=== PATIENT | female | born 1960 | race African-American/Black ===

== ENCOUNTER 2016-11-03 17:36 | Emergency (ER) | payer OTHER ==
[~2016-11-03] VITALS: Ht 157.5 cm; Wt 67.0 kg
[~2016-11-03 17:36] MED LIST: FURO1TAB93 PO; KCL10C PO; LACT10SO27 PO; LORTA5 PO; PRIL40CA PO; RIFA550 PO; SPIR100 PO
[2016-11-03 17:37] VITALS: BP 117/72; PULSE 89; RESP 19; TEMP 97.8; O2SAT 96
--- NOTE | 2016-11-03 17:52 | PD ---
Physical Exam Date Seen by Provider: Nov 03, 2016 Time Seen by Provider: 17:50 Narrative 56 yo female here for abdominal pain and swelling for 2 weeks. Not improving. Taking no meds for it. No N/V/D. No chest pain. No SOB. Starts in the epigastric area and radiates to the back. Has had paracenthesis before, has not had it in a while. No alcohol. Vitals are stable. Awaiting bed placement. Data Data Last Documented VS Vital Signs Date Time Temp Pulse Resp B/P Pulse Ox O2 Delivery O2 Flow Rate FiO2 11/03/16 17:37 97.8 89 19 117/72 96 MDM Medical Record Reviewed: Yes Supervised Visit with MIGUE: No Niranjan Herrera Nov 03, 2016 17:52
[2016-11-03 21:19] VITALS: O2SAT 98
--- NOTE | 2016-11-03 21:27 | PD ---
HPI Chief Complaint: Pain: Acute or Chronic Time Seen by Provider: 21:14 Travel History International Travel<30 days: No Contact w/Intl Traveler<30days: No Traveled to known affect area: No History of Present Illness HPI C/O INCREASING ABD DISTENTION OVER PAST TWO WEEKS, NOW IS VERY PAINFUL AND MAKING IT DIFFICULT TO TAKE FULL BREATHS. HAS KNOWN H/O CIRRHOSIS WITH ASCITES , NORMALLY GETS "DRAINED" AT [place] BY DR HOPE? PFSH Past Medical History Arthritis: Yes Asthma: No Blood Disorders: No Anxiety: Yes Depression: No Heart Rhythm Problems: No Cancer: No Cardiovascular Problems: Yes (htn) Chemotherapy: No Chest Pain: No Congestive Heart Failure: No Cirrhosis: Yes COPD: No Cerebrovascular Accident: Yes Diabetes: No Diminished Hearing: No Endocrine: No Gastrointestinal Disorders: Yes (ASCITES) Glaucoma: Yes Genitourinary: No Headaches: Yes Hepatitis: Yes (HEP C) Hypertension: Yes (NON COMPLIANT WITh BP MEDS) Immune Disorder: Yes (HEP C) Implanted Vascular Access Dvce: No Musculoskeletal: Yes Neurologic: Yes Psychiatric: Yes ( ) Reproductive: No Respiratory: No Immunizations Current: No Radiation Therapy: No Sleep Apnea: No Thyroid Disease: No Tetanus Vaccination: Unknown Influenza Vaccination: No ?: Not Menopausal: Yes : 1 Para: 1 Past Surgical History Abdominal Surgery: Yes (paracentesis q6 months last one 12/22, lap. incarcerated hernia repair) Other Surgery: No Social History Alcohol Use: Yes (occ) Tobacco Use: Yes (2 CIGARS A DAY ) Substance Use: No Allergies-Medications (Allergen,Severity, Reaction): Coded Allergies: No Known Allergies (Verified , 11/03/16) Reported Meds & Prescriptions Reported Meds & Active Scripts Active Reported Lactulose Liq (Lactulose) 10 Gm/15 Ml Soln 15 Ml PO Q6H PRN Klor-Con 10 (Potassium Chloride) 10 Meq Tab 10 Meq PO DAILY Spironolactone 100 Mg Tab 100 Mg PO BIDPC Furosemide 40 Mg Tab 40 Mg PO DAILY Protonix (Pantoprazole Sodium) 40 Mg Tab 40 Mg PO DAILY Review of Systems Except as stated in HPI: all other systems reviewed are Neg General / Constitutional: No: Fever Gastrointestinal: Positive: Abdominal Pain (MORE BLOATING AND PRESSURE, NOT TRULY PAIN) Physical Exam Narrative GENERAL: SKIN: Warm and dry. HEAD: Atraumatic. Normocephalic. EYES: Pupils equal and round. No scleral icterus. No injection or drainage. ENT: No nasal bleeding or discharge. Mucous membranes pink and moist. NECK: Trachea midline. No JVD. CARDIOVASCULAR: Regular rate and rhythm. RESPIRATORY: No accessory muscle use. Clear to auscultation. Breath sounds equal bilaterally. GASTROINTESTINAL: Abdomen SOFT, PRESENT BS, BUT TENSE ASCITES WITH POS FLUID WAVE, NO REBOUND/GUARDING/RIGIDITY MUSCULOSKELETAL: Extremities without clubbing, cyanosis, or edema. No obvious deformities. NEUROLOGICAL: Awake and alert. No obvious cranial nerve deficits. Motor grossly within normal limits. Five out of 5 muscle strength in the arms and legs. Normal speech. PSYCHIATRIC: Appropriate mood and affect; insight and judgment normal. Data Data Last Documented VS Vital Signs Date Time Temp Pulse Resp B/P Pulse Ox O2 Delivery O2 Flow Rate FiO2 11/03/16 21:51 80 18 129/79 99 Room Air 11/03/16 17:37 97.8 Orders Complete Blood Count With Diff (11/03/16 21:16) Comprehensive Metabolic Panel (11/03/16 21:16) Lipase (11/03/16 21:16) Prothrombin Time / Inr (Pt) (11/03/16 21:16) Act Partial Throm Time (Ptt) (11/03/16 21:16) Ct Abd/Pel W/O Iv Contrast (11/03/16 21:16) Iv Access Insert/Monitor (11/03/16 21:16) Ecg Monitoring (11/03/16 21:16) Oximetry (11/03/16 21:16) Morphine Inj (Morphine Inj) (11/03/16 21:30) Ondansetron Inj (Zofran Inj) (11/03/16 21:30) Electrocardiogram (11/03/16 21:16) Labs Laboratory Tests Test 11/03/16 21:22 White Blood Count 3.5 TH/MM3 Red Blood Count 2.49 MIL/MM3 Hemoglobin 10.2 GM/DL Hematocrit 31.2 % Mean Corpuscular Volume 125.0 FL Mean Corpuscular Hemoglobin 41.1 PG Mean Corpuscular Hemoglobin 32.8 % Concent Red Cell Distribution Width 16.2 % Platelet Count 61 TH/MM3 Mean Platelet Volume 8.0 FL Neutrophils (%) (Auto) 39.2 % Lymphocytes (%) (Auto) 46.8 % Monocytes (%) (Auto) 12.8 % Eosinophils (%) (Auto) 0.7 % Basophils (%) (Auto) 0.5 % Neutrophils # (Auto) 1.4 TH/MM3 Lymphocytes # (Auto) 1.6 TH/MM3 Monocytes # (Auto) 0.4 TH/MM3 Eosinophils # (Auto) 0.0 TH/MM3 Basophils # (Auto) 0.0 TH/MM3 CBC Comment AUTO DIFF Differential Comment AUTO DIFF CONFIRMED Prothrombin Time 15.2 SEC Prothromb Time International 1.4 RATIO Ratio Activated Partial 32.2 SEC Thromboplast Time Sodium Level 136 MEQ/L Potassium Level 3.8 MEQ/L Chloride Level 108 MEQ/L Carbon Dioxide Level 21.7 MEQ/L Anion Gap 6 MEQ/L Blood Urea Nitrogen 6 MG/DL Creatinine 0.86 MG/DL Estimat Glomerular Filtration 82 ML/MIN Rate Random Glucose 110 MG/DL Calcium Level 8.3 MG/DL Total Bilirubin 1.5 MG/DL Aspartate Amino Transf 69 U/L (AST/SGOT) Alanine Aminotransferase 34 U/L (ALT/SGPT) Alkaline Phosphatase 233 U/L Total Protein 8.0 GM/DL Albumin 1.9 GM/DL Lipase 234 U/L [facility] Medical Decision Making Medical Screen Exam Complete: Yes Emergency Medical Condition: Yes Medical Record Reviewed: Yes Differential Diagnosis TENSE ASCITES V PANCREATITIS V COLITIS Narrative Course D/W DR ARSHAD, WHO REC CASE MANAGEMENT FOR MANDATORY REFERRAL TO BE DONE INSTEAD OF ADMISSION/OBSERVATION...LAB ABNORMALITIES ARE C/W CHRONIC LIVER CIRRHOSIS Diagnosis Primary Impression: ABDOMINAL PAIN DUE TO TENSE ASCITES Admitting Information Admitting Physician Requests: Observation Remberto Manley MD Nov 03, 2016 21:27
[2016-11-03] MEDS ORDERED: MORPHINE SULFATE 4 MG/ML INJ IV PUSH ONE (21:30)
[2016-11-03] MEDS ORDERED: ONDANSETRON HCL 4 MG/2 ML VIAL IVP ONE (21:30)
[2016-11-03] MEDS ORDERED: FURO40TA PO (21:48)
[2016-11-03] MEDS ORDERED: PROT40TA PO (21:48)
[2016-11-03] MEDS ORDERED: SPIR100T PO (21:49)
[2016-11-03] MEDS ORDERED: LACT10SO PO (21:49)
[2016-11-03] MEDS ORDERED: POTA-243 PO (21:49)
[2016-11-03 21:50] LABS: AUTOMATED NEUTROPHIL # 1.4 TH/MM3 (1.8-7.7); BASOPHIL % 0.5 % (0.0-2.0); EOSINOPHIL % 0.7 % (0.0-4.0); HEMATOCRIT 31.2 % (35.0-46.0); LYMPH % 46.8 % (9.0-44.0); LYMPHOCYTE # 1.6 TH/MM3 (1.0-4.8); MEAN CORPUSCULAR HEMOGLOBIN 41.1 PG (27.0-34.0); MEAN CORPUSCULAR HGB CONC 32.8 % (32.0-36.0); MONO % 12.8 % (0.0-8.0); NEUT % 39.2 % (16.0-70.0); PLATELET COUNT 61 TH/MM3 (150-450); RED BLOOD COUNT 2.49 MIL/MM3 (4.00-5.30); RED CELL DISTRIBUTION WIDTH 16.2 % (11.6-17.2); WHITE BLOOD COUNT 3.5 TH/MM3 (4.0-11.0)
[2016-11-03 21:51] VITALS: BP 129/79; PULSE 80; RESP 18; O2SAT 99
[2016-11-03 21:56] LABS: HEMO FLAGS AUTO DIFF
[2016-11-03 22:02] LABS: ALT (GPT) 34 U/L (10-53)
[2016-11-03 22:04] LABS: ANION GAP 6 MEQ/L (5-15); APTT (PATIENT) 32.2 SEC (24.3-30.1); AST (GOT) 69 U/L (15-37); BICARBONATE 21.7 MEQ/L (21.0-32.0); BLOOD UREA NITROGEN 6 MG/DL (7-18); CHLORIDE 108 MEQ/L (98-107); GLOMERULAR FILTRATION RATE 82 ML/MIN (>89); INTERNATIONAL NORMALIZED RATIO 1.4 RATIO; POTASSIUM 3.8 MEQ/L (3.5-5.1); PROTHROMBIN TIME - PATIENT 15.2 SEC (9.8-11.6); SODIUM (NA) 136 MEQ/L (136-145)
[2016-11-03 22:05] LABS: ALKALINE PHOSPHATASE 233 U/L (45-117); TOTAL BILIRUBIN ADULT 1.5 MG/DL (0.2-1.0)
[2016-11-03 22:23] LABS: SCAN/DIFF AUTO DIFF CONFIRMED
--- NOTE | 2016-11-03 22:34 | RADRPT ---
EXAM DATE/TIME: 11/03/2016 21:30 [facility] COMPARISON: No previous studies available for comparison. INDICATIONS : Epigastric pain with distention. ORAL CONTRAST: No oral contrast ingested. RADIATION DOSE: 14.35 CTDIvol (mGy) MEDICAL HISTORY : Hypertension. Cirrhosis. Hepatitis C. SURGICAL HISTORY : Hernia repair ENCOUNTER: Initial ACUITY: 2 weeks PAIN SCALE: 10/10 LOCATION: Epigastric TECHNIQUE: Volumetric scanning of the abdomen and pelvis was performed. Using automated exposure control and adjustment of the mA and/or kV according to patient size, radiation dose was kept as low as reasonably achievable to obtain optimal diagnostic quality images. DICOM format image data is av ailable electronically for review and comparison. FINDINGS: The liver appears diffusely abnormal with hypertrophy of the left lobe and to some degr ee at caudate. There is atrophy of the right lobe. The liver demonstrates a nodular surface. These changes are consistent with cirrhosis. The patient does appear to have a recanalized periumbilical v ein. There is a moderate to large amount of ascites seen throughout the peritoneal cavity. Calcifie d gallstones are seen. The spleen is normal in size. The pancreas and adrenal glands are normal. There is a tiny 2 mm nono bstructing right renal stone seen at the superior collecting system. No hydronephrosis is seen on ei ther side. There are scattered atherosclerotic calcifications seen at the arterial structures. No a neurysm is seen. The patient has bowel danielle seen in the right midabdomen. The bowel is otherwise unremarkable. Th e pelvic structures appear grossly intact. There does appear to be some ascites extending through an umbilical hernia. The defect at the anterior abdominal wall at the umbilicus measures approximately 2 cm in diameter. The hernia sac at the umbilicus measures 6 cm in height, 6 cm in transverse dimen tabatha and 3.8 cm in AP dimension. No bowel is seen in this region. The lung bases are grossly clear. The bony structures are grossly intact. CONCLUSION: 1. Cirrhotic liver with a moderate to large amount of ascites. This likely accounts for much of the abdominal distension. 2. Multiple calcified gallstones. The gallbladder is not distended. 3. 2 mm nonobstructing right renal stone. Urbano Olivares MD on November 03, 2016 at 21:56 Board Certified Radiologist. This report was verified electronically.
--- NOTE | 2016-11-04 23:18 | EKG ---
Date Performed: 11/03/2016 Time Performed: 21:40:47 PTAGE: 56 years EKG: Sinus rhythm LOW QRS VOLTAGE IN PRECORDIAL LEADS BORDERLINE ECG PREVIOUS TRACING : 01/25/2016 20.54 Compared to prior tracing no significant change DOCTOR: Jason Uribe Interpretating Date/Time 11/04/2016 23:17:11
== END 2016-11-04 01:26 | disposition home or self-care (01) ==
LOC: NEPC 17:36
DX: R18.8 Other ascites (principal); K74.60 Unspecified cirrhosis of liver; M19.90 Unspecified osteoarthritis, unspecified site; Z91.14 Patient's other noncompliance with medication regimen; Z86.73 Personal history of transient ischemic attack (TIA), and cerebral infarction without residual deficits
CPT/HCPCS: 74176; 80053; 83690; 85025; 85610; 85730; 93005; 96374; 96375; 99285; J2270; J2405

== ENCOUNTER 2017-02-03 08:01 | Day surgery (SDC) | payer OTHER ==
[~2017-02-03 08:01] MED LIST changes: -FURO1TAB93 PO; +FURO40TA PO; -KCL10C PO; +LACT10SO PO; -LACT10SO27 PO; -LORTA5 PO; +POTA-243 PO; -PRIL40CA PO; +PROT40TA PO; -RIFA550 PO; -SPIR100 PO; +SPIR100T PO
[2017-02-03] MEDS ORDERED: LIDOCAINE HCL 1% 30 ML VIAL SQ ONE (08:02)
[2017-02-03 09:17] LABS: BASOPHIL % 0.6 % (0.0-2.0); EOSINOPHIL % 0.9 % (0.0-4.0); HEMATOCRIT 29.5 % (35.0-46.0); LYMPH % 43.8 % (9.0-44.0); LYMPHOCYTE # 1.2 TH/MM3 (1.0-4.8); MEAN CELL VOLUME 122.6 FL (80.0-100.0); MEAN CORPUSCULAR HEMOGLOBIN 42.4 PG (27.0-34.0); MEAN CORPUSCULAR HGB CONC 34.6 % (32.0-36.0); MONO % 16.1 % (0.0-8.0); NEUT % 38.6 % (16.0-70.0); PLATELET COUNT 60 TH/MM3 (150-450); RED BLOOD COUNT 2.41 MIL/MM3 (4.00-5.30); RED CELL DISTRIBUTION WIDTH 16.8 % (11.6-17.2); WHITE BLOOD COUNT 2.7 TH/MM3 (4.0-11.0)
[2017-02-03 09:27] LABS: HEMO FLAGS DIFF FINAL
[2017-02-03 09:48] VITALS: BP 133/80; PULSE 74; RESP 14; TEMP 98; O2SAT 100
[2017-02-03 11:57] VITALS: BP 102/59; PULSE 76; RESP 18; TEMP 98.2; O2SAT 99
[2017-02-03] MEDS ORDERED: ALBUMIN HUMAN 25% 12.5GM-W/25GM FOR 37.5GM IV ONE (12:00)
[2017-02-03] MEDS ORDERED: ALBUMIN HUMAN 25% 25GM-W/12.5GM FOR 37.5GM IV ONE (12:00)
[2017-02-03 12:12] VITALS: BP 104/57; PULSE 77; RESP 19; O2SAT 98
--- NOTE | 2017-02-03 16:25 | RADRPT ---
EXAM DATE/TIME: 02/03/2017 09:55 [facility] COMPARISON: EXTERNAL COMPARISON: US GUIDED ABD PARACENTESIS, June 24, 2015, 10:21. [facility], Ultrasound abdomen, Sep 18 2016. INDICATIONS : Ascites. MEDICAL HISTORY : Hypertension. Cirrhosis. Hepatitis C. SURGICAL HISTORY : Hernia repair. ENCOUNTER: Subsequent ACUITY: 1 month PAIN SCORE: 0/10 LOCATION: Left lower quadrant FLUID: Total volume of 5600 cc of clear, yellow fluid was removed. Fluid was discarded. Paracentesis was therapeutic only. Post procedure scanning reveals no hematoma or other complication. TECHNIQUE: 1. Ultrasound guidance for abdominal paracentesis. 2. Paracentesis. The risks, benefits, and alternatives to ultrasound guided paracentesis were explained to the patient in detail including the risk of bleeding and infection. Written and verbal informed consent was obt ained. With the patient on the ultrasound table, ultrasound imaging was used to select the most appropriate approach for paracentesis. Overlying skin was prepped and draped in the usual sterile fashion and wi th a local anesthetic, a dermatotomy was made with an 11 blade scalpel. A 6 Irish Fzu-I-pohswteo ca theter was introduced into the peritoneal cavity and fluid was collected. The patient tolerated the procedure well and left the ultrasound suite in stable condition. CONCLUSION: Uncomplicated ultrasound guided paracentesis. Pavan Elena MD on February 03, 2017 at 16:23 Board Certified Radiologist. This report was verified electronically.
== END 2017-02-03 13:16 | disposition home or self-care (01) ==
LOC: HRAD 08:01 → HRIP 08:03 → HRAD 13:16
PROVIDERS: ATTEND Internal Medicine Gastroenterology
DX: R18.8 Other ascites (principal); I10 Essential (primary) hypertension; B19.20 Unspecified viral hepatitis C without hepatic coma; K74.60 Unspecified cirrhosis of liver
CPT/HCPCS: 36415; 49083; 85025; 96365; C1729; P9047; 96366

== ENCOUNTER 2017-02-23 21:37 | Inpatient (IN) | payer OTHER ==
[~2017-02-23] VITALS: Ht 157.5 cm; Wt 67.6 kg
[2017-02-23] MEDS ORDERED: IOHEXOL 350 MG/ML 10 ML VIAL (for RAD DIAG) IVCONTRAST ONE (21:38)
[2017-02-23 21:51] VITALS: BP 129/74; PULSE 96; RESP 24; TEMP 98.1; O2SAT 98
--- NOTE | 2017-02-23 22:48 | PD ---
HPI Chief Complaint: Abdominal Pain Time Seen by Provider: 22:01 Travel History International Travel<30 days: No Contact w/Intl Traveler<30days: No Traveled to known affect area: No History of Present Illness HPI The patient is a 56 year old female who presents to the [facility] emergency department with a history of abdominal pain associated with abdominal distention that began on Wednesday. The patient reports that she has a known history of cirrhosis and ascites related to alcohol abuse as well as hepatitis C. The patient reports that her primary care physician is Dr. Gauthier. The patient reports that she last had a paracentesis done on February 13. The patient reports that she was having paracentesis usually about once every 6 months, however this time the fluid reaccumulated quickly. She reports that she has pain whenever she lays on either side to try to sleep. She reports that she has shortness of breath associated with this. She denies having any cough or congestion. She denies having any known fever or chills. She reports having nausea but no vomiting. She denies having any diarrhea. Her last bowel movement was yesterday. She reports that yesterday she did notice a drop of blood in her urine. She denies having any dysuria or urinary frequency. She does report having a decreased urine output. She has been taking her diuretics as prescribed. On review of systems otherwise, the patient denies any neck pain , chest pain, or neurologic symptoms. [facility] Past Medical History Narrative Medical The patient's past medical history is significant for hepatitis C, cirrhosis, ascites, history of alcohol abuse, prior history of cerebrovascular accident, history of glaucoma, acid reflux Arthritis: Yes Asthma: No Blood Disorders: No Anxiety: Yes Depression: No Heart Rhythm Problems: No Cancer: No Cardiovascular Problems: Yes (htn) Chemotherapy: No Chest Pain: No Congestive Heart Failure: No Cirrhosis: Yes COPD: No Cerebrovascular Accident: Yes Diabetes: No Diminished Hearing: No Endocrine: No Gastrointestinal Disorders: Yes (ASCITES) Glaucoma: Yes Genitourinary: No Headaches: Yes Hepatitis: Yes (HEP C) Hypertension: Yes (NON COMPLIANT WITh BP MEDS) Immune Disorder: Yes (HEP C) Implanted Vascular Access Dvce: No Musculoskeletal: Yes Neurologic: Yes Psychiatric: Yes ( ) Reproductive: No Respiratory: No Immunizations Current: No Radiation Therapy: No Sleep Apnea: No Thyroid Disease: No Tetanus Vaccination: Never Vaccinated ?: Not Menopausal: Yes : 1 Para: 1 Past Surgical History Narrative Surgical The patient's past surgical history is significant for an umbilical hernia repair, bowel resection, history of paracentesis Abdominal Surgery: Yes (paracentesis q6 months last one 12/22, lap. incarcerated hernia repair) Other Surgery: No Social History Alcohol Use: Yes (occ) Tobacco Use: Yes (2 CIGARS A DAY ) Substance Use: No Allergies-Medications (Allergen,Severity, Reaction): Coded Allergies: No Known Allergies (Verified , 02/23/17) Reported Meds & Prescriptions Reported Meds & Active Scripts Active Reported Xifaxan (Rifaximin) 550 Mg Tab 550 Mg PO Q12HR Lactulose Liq (Lactulose) 10 Gm/15 Ml Soln 15 Ml PO Q6H PRN Klor-Con 10 (Potassium Chloride) 10 Meq Tab 10 Meq PO DAILY Spironolactone 100 Mg Tab 100 Mg PO BIDPC Furosemide 40 Mg Tab 40 Mg PO DAILY Protonix (Pantoprazole Sodium) 40 Mg Tab 40 Mg PO DAILY Review of Systems Except as stated in HPI: all other systems reviewed are Neg General / Constitutional: No: Fever Eyes: No: Visual changes HENT: No: Headaches Cardiovascular: No: Chest Pain or Discomfort Respiratory: No: Shortness of Breath Gastrointestinal: Positive: Nausea, Abdominal Pain, No: Vomiting, Diarrhea, Hematemesis, Hematochezia, Changes in Bowel Habits, Indigestion, Loss of Appetite Genitourinary: Positive: Hematuria, Decreased Urinary Output, No: Urgency, Frequency, Dysuria Musculoskeletal: No: Pain Skin: No Rash Neurologic: No: Weakness, Focal Abnormalities, Change in Mentation, Slurred Speech, Sensory Disturbance Psychiatric: No: Depression Endocrine: No: Polydipsia Hematologic/Lymphatic: No: Easy Bruising Physical Exam Narrative General: The patient is a well-developed well-nourished female in no acute distress. Head and Neck exam: Head is normocephalic atraumatic. Eyes: EOMI, pupils are equal round and reactive to light. Nose: Midline septum with pink mucous membranes Mouth: Dentition unremarkable. Moist mucus membranes. Posterior oropharynx is not erythematous. No tonsillar hypertrophy. Uvula midline. Airway patent. Neck: No palpable lymphadenopathy. No nuchal rigidity. No thyromegaly. Cardiovascular: Regular rate and rhythm without murmurs, gallops, or rubs. No pulse deficit to the extremities on simultaneous auscultation and palpation of her radial artery. Lungs: Clear to auscultation bilaterally. No wheezes, rhonchi, or rales. Abdomen: The patient reports having tenderness on palpation of both her umbilicus and bilateral sides of the abdomen, the patient has a positive fluid wave with severe abdominal distention related to ascites. No tenderness specifically on palpation over McBurney's point. Bowel sounds are difficult to auscultate. Extremities: No clubbing or cyanosis. The patient has trace pedal edema bilateral lower extremities. 2 + pulses in all 4 extremities. Back: No spinous process tenderness to palpation. Bilateral CVA tenderness is noted on palpation worse on the right compared to the left. Neurologic Exam: Cranial nerves 2-12 were intact on exam. Strength is 5/5 in all 4 extremities. No sensory deficits noted. Skin Exam: No rash noted. Intact skin that is warm and dry. Data Data Last Documented VS Vital Signs Date Time Temp Pulse Resp B/P (MAP) Pulse Ox O2 Delivery O2 Flow Rate FiO2 02/23/17 23:19 89 22 134/74 (94) 98 Nasal Cannula 2.00 02/23/17 21:51 98.1 Orders Orders Electrocardiogram (02/23/17 22:27) Complete Blood Count With Diff (02/23/17 22:27) Comprehensive Metabolic Panel (02/23/17 22:27) Creatine Kinase (Cpk) (02/23/17 22:27) Ckmb (Isoenzyme) Profile (02/23/17 22:27) Troponin I (02/23/17:27) B-Type Natriuretic Peptide (02/23/17 22:27) Prothrombin Time / Inr (Pt) (02/23/17 22:27) Act Partial Throm Time (Ptt) (02/23/17 22:27) Lipase (02/23/17 22:27) Urinalysis - C+S If Indicated (02/23/17 22:27) Magnesium (Mg) (02/23/17 22:27) Chest, Single Ap (02/23/17 22:27) Ct Abd/Pel W Iv Contrast(Rout) (02/23/17 22:27) Iv Access Insert/Monitor (02/23/17 22:27) Ecg Monitoring (02/23/17 22:27) Oximetry (02/23/17 22:27) Drug Screen, Random Urine (02/23/17 22:27) Alcohol (Ethanol) (02/23/17 22:27) Morphine Inj (Morphine Inj) (02/24/17 00:15) Ondansetron Inj (Zofran Inj) (02/24/17 00:15) CKMB (02/23/17 23:15) CKMB% (02/23/17 23:15) Iohexol 350 Inj (Omnipaque 350 Inj) (02/23/17 21:38) Admit Order (Ed Use Only) (02/24/17 00:56) Labs Laboratory Tests Test 02/23/17 23:15 White Blood Count 3.8 TH/MM3 Red Blood Count 2.10 MIL/MM3 Hemoglobin 9.0 GM/DL Hematocrit 25.6 % Mean Corpuscular Volume 122.0 FL Mean Corpuscular Hemoglobin 42.9 PG Mean Corpuscular Hemoglobin Concent 35.2 % Red Cell Distribution Width 19.6 % Platelet Count 69 TH/MM3 Mean Platelet Volume 9.4 FL Neutrophils (%) (Auto) 53.6 % Lymphocytes (%) (Auto) 27.3 % Monocytes (%) (Auto) 17.0 % Eosinophils (%) (Auto) 1.1 % Basophils (%) (Auto) 1.0 % Neutrophils # (Auto) 2.1 TH/MM3 Lymphocytes # (Auto) 1.0 TH/MM3 Monocytes # (Auto) 0.7 TH/MM3 Eosinophils # (Auto) 0.0 TH/MM3 Basophils # (Auto) 0.0 TH/MM3 CBC Comment AUTO DIFF Differential Comment AUTO DIFF CONFIRMED Platelet Estimate LOW Platelet Morphology Comment NORMAL Prothrombin Time 24.8 SEC Prothromb Time International Ratio 2.2 RATIO Activated Partial Thromboplast Time 45.1 SEC Blood Urea Nitrogen 7 MG/DL Creatinine 1.29 MG/DL Random Glucose 118 MG/DL Total Protein 8.4 GM/DL Albumin 1.9 GM/DL Calcium Level 8.1 MG/DL Magnesium Level 1.8 MG/DL Alkaline Phosphatase 226 U/L Aspartate Amino Transf (AST/SGOT) 330 U/L Alanine Aminotransferase (ALT/SGPT) 131 U/L Total Bilirubin 7.2 MG/DL Sodium Level 134 MEQ/L Potassium Level 3.3 MEQ/L Chloride Level 102 MEQ/L Carbon Dioxide Level 22.9 MEQ/L Anion Gap 9 MEQ/L Estimat Glomerular Filtration Rate 52 ML/MIN Total Creatine Kinase 164 U/L Creatine Kinase MB 1.8 NG/ML Troponin I LESS THAN 0.02 NG/ML B-Type Natriuretic Peptide 30 PG/ML Lipase 454 U/L Ethyl Alcohol Level LESS THAN 3 MG/DL MDM Medical Decision Making Medical Screen Exam Complete: Yes Emergency Medical Condition: Yes Medical Record Reviewed: Yes Interpretation(s) Last Impressions Chest X-Ray 02/23/172226 Signed Impressions: Service Date/Time: Thursday, February 23, 2017 22:38 - CONCLUSION: No acute cardiopulmonary disease. Nestor Thomas MD Differential Diagnosis Spontaneous bacterial peritonitis, versus recurrent ascites, versus pulmonary edema, versus acute renal failure Narrative Course During the course of the patients emergency department visit, the patients history, examination, and differential diagnosis were reviewed with the patient. The patient had IV access obtained and blood work sent for analysis. The patient was placed on a hospital monitor with oximetry and blood pressure monitoring. An ECG was done on arrival. The patient's ECG reveals a sinus rhythm with a short NV interval, heart rate of 91, nonspecific T-wave abnormalities with a QTC of 427. The patient was initially provided morphine for pain, Zofran for nausea. The patients laboratory studies were reviewed and remarkable for a white count of 3.8, hemoglobin 9, platelets 69, monocytes 17, CMP is remarkable for sodium of 134, potassium 3.3 which was supplemented orally, creatinine 1.29, glucose 118, total bilirubin is elevated at 7.2, AST 3:30, ALT 131, alkaline phosphatase 226. An ultrasound to evaluate for possible common bile duct stone is ordered. CPK within normal limits, troponin I less than 0.02, BNP 30, lipase is elevated at 454. PT 24.8, INR 2.2, PTT 45.1, alcohol level less than 3. Radiology studies were reviewed and remarkable for a chest x-ray that shows no acute cardiopulmonary disease, CT scan of the abdomen and pelvis shows cirrhosis , severe ascites, cholelithiasis. No other acute abnormality. The patient will be admitted to the hospital for further evaluation to rule out a common bile duct stone, versus SBP as the cause of the patient's abdominal pain. The patients results were discussed with the patient, including the plan of care. I explained that further testing and/ or monitoring is indicated based on the patients history, examination, and/ or laboratory findings. Therefore, I recommended admission for additional evaluation. The patient expressed understanding and was agreeable with this plan. The patient was admitted to the hospital in guarded condition and [facility] Physician Communication Physician Communication The patient's case was discussed with Dr. Greer who did agree to admit the patient for further evaluation and treatment at this time. Diagnosis Primary Impression: Abdominal pain Qualified Codes: R10.84 - Generalized abdominal pain Additional Impression: Cirrhosis of liver with ascites Qualified Codes: K74.60 - Unspecified cirrhosis of liver Admitting Information Admitting Physician Requests: Ashleigh Trevino MD Feb 23, 2017 22:48
--- NOTE | 2017-02-23 22:53 | RADRPT ---
EXAM DATE/TIME: 02/23/2017 22:38 [facility] COMPARISON: CHEST SINGLE AP, January 25, 2016, 16:33. INDICATIONS : Chest pain. MEDICAL HISTORY : Hypercholesterolemia. Cirrhosis. Hypertension. Glaucoma. SURGICAL HISTORY : None. ENCOUNTER: Initial ACUITY: 1 day PAIN SCORE: 0/10 LOCATION: Bilateral chest FINDINGS: The lungs are clear without infiltrate, nodule, or mass. There is no appreciable pleural effusion fo r technique. Heart and mediastinum are unremarkable. CONCLUSION: No acute cardiopulmonary disease. Nestor Thomas MD on February 23, 2017 at 22:52 Board Certified Radiologist. This report was verified electronically.
[2017-02-23 23:19] VITALS: BP 134/74; PULSE 89; RESP 22; O2SAT 98; O2SAT 99
[2017-02-23 23:27] LABS: AUTOMATED NEUTROPHIL # 2.1 TH/MM3 (1.8-7.7); EOSINOPHIL % 1.1 % (0.0-4.0); HEMATOCRIT 25.6 % (35.0-46.0); LYMPH % 27.3 % (9.0-44.0); MEAN CORPUSCULAR HEMOGLOBIN 42.9 PG (27.0-34.0); MEAN CORPUSCULAR HGB CONC 35.2 % (32.0-36.0); NEUT % 53.6 % (16.0-70.0); PLATELET COUNT 69 TH/MM3 (150-450); RED CELL DISTRIBUTION WIDTH 19.6 % (11.6-17.2); WHITE BLOOD COUNT 3.8 TH/MM3 (4.0-11.0)
[2017-02-23] MEDS ORDERED: XIFA550T4 PO (23:27)
[2017-02-23 23:39] LABS: APTT (PATIENT) 45.1 SEC (24.3-30.1); INTERNATIONAL NORMALIZED RATIO 2.2 RATIO; PROTHROMBIN TIME - PATIENT 24.8 SEC (9.8-11.6)
[2017-02-24] VITALS (20 sets, daily range): BP systolic 87–120; BP diastolic 50–74; PULSE 83–90; RESP 14–24; TEMP 96.3–98.1; O2SAT 95–99
[2017-02-24 00:08] LABS: ALCOHOL LESS THAN 3 MG/DL (0-5); ALKALINE PHOSPHATASE 226 U/L (45-117); ALT (GPT) 131 U/L (10-53); ANION GAP 9 MEQ/L (5-15); AST (GOT) 330 U/L (15-37); BICARBONATE 22.9 MEQ/L (21.0-32.0); BLOOD UREA NITROGEN 7 MG/DL (7-18); CHLORIDE 102 MEQ/L (98-107); CREATINE KINASE 164 U/L (26-192); GLOMERULAR FILTRATION RATE 52 ML/MIN (>89); MAGNESIUM 1.8 MG/DL (1.5-2.5); POTASSIUM 3.3 MEQ/L (3.5-5.1); SODIUM (NA) 134 MEQ/L (136-145); TOTAL BILIRUBIN ADULT 7.2 MG/DL (0.2-1.0)
[2017-02-24] MEDS ORDERED: MORPHINE SULFATE 4 MG/ML INJ IV PUSH ONE (00:15)
[2017-02-24] MEDS ORDERED: ONDANSETRON HCL 4 MG/2 ML VIAL IV PUSH ONE (00:15)
[2017-02-24 00:21] LABS: CKMB 1.8 NG/ML (0.5-3.6)
[2017-02-24 00:34] LABS: HEMO FLAGS AUTO DIFF; PLATELET ESTIMATE SMEAR LOW (NORMAL); PLATELET MORPHOLOGY NORMAL (NORMAL); SCAN/DIFF AUTO DIFF CONFIRMED
--- NOTE | 2017-02-24 00:51 | RADRPT ---
EXAM DATE/TIME: 02/23/2017 22:47 [facility] COMPARISON: CT ABDOMEN & PELVIS W CONTRAST, January 25, 2016, 18:19. INDICATIONS : Abdominal pain and distention. IV CONTRAST: 95 cc Omnipaque 350 (iohexol) IV ORAL CONTRAST: No oral contrast ingested. RADIATION DOSE: 9.03 CTDIvol (mGy) MEDICAL HISTORY : Cirrhosis. Hypertension. Hepatitis C.CVA. Ascites. SURGICAL HISTORY : Paracentesis. ENCOUNTER: Initial ACUITY: 3 days PAIN SCALE: 10/10 LOCATION: All quadrants. TECHNIQUE: Volumetric scanning of the abdomen and pelvis was performed. Using automated exposure control and ad justment of the mA and/or kV according to patient size, radiation dose was kept as low as reasonably achievable to obtain optimal diagnostic quality images. DICOM format image data is available electro nically for review and comparison. FINDINGS: Examination of the lung bases demonstrates no abnormality. No pleural fluid is identified. No pulmona ry nodules are present. Severe ascites is present. There is diffuse edema in the subcutaneous tissues consistent with anasarca. There are multiple stones within the gallbladder without wall thickening or pericholecystic fluid the largest measuring 5 mm. There is a nodular contour to the liver which may reflect cirrhosis. The spl een is normal in size and free of focal defects. Umbilical hernia is present with no bowel within it. The adrenal glands and kidneys appear normal bilaterally. No hydronephrosis or mass lesions are iden tified. CONCLUSION: 1. Cirrhosis. 2. Severe ascites 3. Cholelithiasis Braydon Hoover MD on February 24, 2017 at 0:47 Board Certified Radiologist. This report was verified electronically.
[2017-02-24] MEDS ORDERED: NALOXONE HCL 0.4 MG/ML AMP IV PUSH PRN (02:00)
[2017-02-24] MEDS ORDERED: POTASSIUM CHLORIDE 20 MEQ CONTROLLED RELEASE TAB PO ONE (02:00)
[2017-02-24] MEDS ORDERED: SODIUM CHLORIDE 0.9% FLUSH 10 ML FLUSH IV FLUSH PRN (02:00)
--- NOTE | 2017-02-24 03:43 | RADRPT ---
EXAM DATE/TIME: 02/24/2017 02:32 [facility] COMPARISON: CT ABDOMEN & PELVIS W CONTRAST, February 23, 2017, 22:47. US ABDOMEN - GALLBLADDER, January 25 6, 9:58. INDICATIONS : Abdomen pain. Ascites. MEDICAL HISTORY : Hypercholesterolemia. Hypertension. Hepatitis C. CVA. Glaucoma. Arthritis. Cirrhosis. SURGICAL HISTORY : Paracentesis. ENCOUNTER: Initial ACUITY: 1 week PAIN SCORE: 10/10 LOCATION: Abdomen. MEASUREMENTS: LIVER: 10.9 cm length COMMON DUCT: 9 mm RIGHT KIDNEY: 9.8 x 4.2 x 5.7 cm FINDINGS: There is a nodular contour to the liver which may reflect cirrhosis. Large volume of ascites is prese nt. There is cholelithiasis with a stone in the gallbladder measuring 1.5 cm with pericholecystic flu id and wall thickening which is nonspecific in the face of ascites. The common duct is dilated to 9 m m. The pancreas demonstrates no evidence of mass and there is no dilatation of the pancreatic duct. T he right kidney is unremarkable. CONCLUSION: 1. Cholelithiasis as above. Common duct dilatation without evidence of stone. MRCP could be performed for further evaluation if clinically indicated. Braydon Hoover MD on February 24, 2017 at 3:40 Board Certified Radiologist. This report was verified electronically.
[2017-02-24] MEDS ORDERED: PHYTONADIONE 10 MG/ML VIAL SQ ONE (05:15)
--- NOTE | 2017-02-24 05:21 | HHI.HP ---
HPI Service [facility] Primary Care Physician RIOS Cooney Admission Diagnosis Severe ascites, r/o SBP Diagnoses: (1) Cirrhosis of liver with ascites (2) Abdominal pain Chief Complaint: Severe abdominal pain Travel History International Travel<30 Days: No Contact w/Intl Traveler <30 Da: No Traveled to Known Affected Are: No History of Present Illness The patient is seen in the CDU. She states that she developed severe right-sided abdominal pain with significant distention accompanied by shortness of breath. No measured fevers though felt warm Denies nausea or vomiting. Had one episode of black stool on Wednesday. Denies hematuria. The patient reports mid-epigastric pain. Symptoms present for about one week. Some chest tightness reported. Reports some peripheral edema but was not as bad as February 13 which was the last time she had a paracentesis Denies syncope but reports fatigue Review of Systems Except as stated in HPI: all other systems reviewed are Neg Past Family Social History Past Medical History Hypertension Alcoholic Cirrhosis Hepatitis C CVA - left sided residual Esophageal stricture Denies diabetes mellitus, CHF, atrial fibrillation, irregular heart rhythms, COPD, breathing problems, kidney problems, DVT, PE, seizures, thyroid problems, or cancers . Past Surgical History Multiple paracentesis EGD with esophageal dilatation . Reported Medications Reported Meds & Active Scripts Active Reported Xifaxan (Rifaximin) 550 Mg Tab 550 Mg PO Q12HR Lactulose Liq (Lactulose) 10 Gm/15 Ml Soln 15 Ml PO Q6H PRN Klor-Con 10 (Potassium Chloride) 10 Meq Tab 10 Meq PO DAILY Spironolactone 100 Mg Tab 100 Mg PO BIDPC Furosemide 40 Mg Tab 40 Mg PO DAILY Protonix (Pantoprazole Sodium) 40 Mg Tab 40 Mg PO DAILY . Allergies: Coded Allergies: No Known Allergies (Verified , 02/23/17) Active Ordered Medications Current Medications Morphine Sulfate (Morphine Inj) 4 mg ONCE ONCE IV PUSH Last administered on t 00:16; Start 02/24/17 at 00:15; Stop 02/24/17 at 00:16; Status DC Ondansetron HCl (Zofran Inj) 4 mg ONCE ONCE IV PUSH Last administered on 02/24 00:15; Start 02/24/17 at 00:15; Stop 02/24/17 at 00:16; Status DC Iohexol (Omnipaque 350 Inj) 95 ml STK-MED ONCE IVCONTRAST Last administered on 02/23/17 21:38; Start 02/23/17 at 21:38; Stop 02/24/17 at 00:38; Status DC Potassium Chloride (KCl) 20 meq ONCE ONCE PO Last administered on 02/24/17 01:54; Start 02/24/17 at 02:00; Stop 02/24/17 at 02:01; Status DC Sodium Chloride (NS Flush) 2 ml UNSCH PRN IV FLUSH FLUSH AFTER USING IV ACCESS ; Start 02/24/17 at 02:00 Sodium Chloride (NS Flush) 2 ml BID IV FLUSH ; Start 02/24/17 at 09:00 Naloxone HCl (Narcan Inj) 0.4 mg UNSCH PRN IV PUSH SEE LABEL COMMENTS; Start 02/24/17 at 02:00 Influenza Virus Vaccine (Flu (Quadrivalent) Vaccine Inj) 0.5 ml ONCE ONCE IM ; Start 02/25/17 at 09:00; Stop 02/25/17 at 09:01 Pneumococcal Polyvalent Vaccine (Pneumovax-23 Inj) 25 mcg ONCE ONCE IM ; Start 02/25/17 at 09:00; Stop 02/25/17 at 09:01 Phytonadione (Mephyton) 5 mg DAILY PO ; Start 02/25/17 at 09:00 Phytonadione (Vitamin K Inj) 10 mg ONCE ONCE SQ ; Start 02/24/17 at 05:15; Stop 02/24/17 at 05:16; Status UNV . Family History Mother with stomach cancers Sister with uterine cancers . Social History Tobacco: smokes cigars Alcohol: denies use x 1 month Illicit Drugs: denies . Physical Exam Vital Signs Vital Signs Date Time Temp Pulse Resp B/P (MAP) Pulse Ox O2 Delivery O2 Flow Rate FiO2 02/24/17 04:43 97.3 88 17 108/60 98 02/24/17 03:16 97.3 88 21 108/60 (76) 98 02/24/17 02:37 02/23/17 23:19 89 22 134/74 (94) 98 Nasal Cannula 2.00 02/23/17 23:19 22 02/23/17 23:19 22 99 Nasal Cannula 2.00 02/23/17 21:51 98.1 96 24 129/74 (92) 98 Physical Exam GENERAL: This is a chronically ill appearing patient, in no apparent distress. SKIN: No rashes. Cool and dry. HEAD: Atraumatic. Normocephalic. EYES: No scleral icterus. No injection or drainage. ENT: Nose without bleeding, purulent drainage. Airway patent. NECK: Trachea midline. No JVD or lymphadenopathy. Supple, nontender, no meningeal signs. CARDIOVASCULAR: Regular rate and rhythm without murmurs, gallops, or rubs. RESPIRATORY: Clear to auscultation. Breath sounds equal bilaterally. No wheezes , rales, or rhonchi. GASTROINTESTINAL: Abdomen normal bowel sounds, significant distention, tender epigastric and right upper quadrant abdominal pain. No guarding. Abdominal varicosities noted. MUSCULOSKELETAL: Extremities without clubbing, cyanosis, or edema. No calf tenderness. NEUROLOGICAL: Awake and alert. Motor and sensory grossly within normal limits. Normal speech. Laboratory Laboratory Tests Test 02/23/17 23:15 White Blood Count 3.8 Red Blood Count 2.10 Hemoglobin 9.0 Hematocrit 25.6 Mean Corpuscular Volume 122.0 Mean Corpuscular Hemoglobin 42.9 Mean Corpuscular Hemoglobin Concent 35.2 Red Cell Distribution Width 19.6 Platelet Count 69 Mean Platelet Volume 9.4 Neutrophils (%) (Auto) 53.6 Lymphocytes (%) (Auto) 27.3 Monocytes (%) (Auto) 17.0 Eosinophils (%) (Auto) 1.1 Basophils (%) (Auto) 1.0 Neutrophils # (Auto) 2.1 Lymphocytes # (Auto) 1.0 Monocytes # (Auto) 0.7 Eosinophils # (Auto) 0.0 Basophils # (Auto) 0.0 CBC Comment AUTO DIFF Differential Comment AUTO DIFF CONFIRMED Platelet Estimate LOW Platelet Morphology Comment NORMAL Prothrombin Time 24.8 Prothromb Time International Ratio 2.2 Activated Partial Thromboplast Time 45.1 Blood Urea Nitrogen 7 Creatinine 1.29 Random Glucose 118 Total Protein 8.4 Albumin 1.9 Calcium Level 8.1 Magnesium Level 1.8 Alkaline Phosphatase 226 Aspartate Amino Transf (AST/SGOT) 330 Alanine Aminotransferase (ALT/SGPT) 131 Total Bilirubin 7.2 Sodium Level 134 Potassium Level 3.3 Chloride Level 102 Carbon Dioxide Level 22.9 Anion Gap 9 Estimat Glomerular Filtration Rate 52 Total Creatine Kinase 164 Creatine Kinase MB 1.8 Troponin I LESS THAN 0.02 B-Type Natriuretic Peptide 30 Lipase 454 Ethyl Alcohol Level LESS THAN 3 Result Diagram: 02/23/175 02/23/172314 Imaging Last Impressions Gall Bladder Ultrasound 02/24/17 0147 Signed Impressions: Service Date/Time: Friday, February 24, 2017 02:32 - CONCLUSION: 1. Cholelithiasis as above. Common duct dilatation without evidence of stone. MRCP could be performed for further evaluation if clinically indicated. Braydon Hoover MD Chest X-Ray 02/23/172226 Signed Impressions: Service Date/Time: Thursday, February 23, 2017 22:38 - CONCLUSION: No acute cardiopulmonary disease. Nestor Thomas MD Abdomen/Pelvis CT 02/23/172226 Signed Impressions: Service Date/Time: Thursday, February 23, 2017 22:47 - CONCLUSION: 1. Cirrhosis. 2. Severe ascites 3. Cholelithiasis Braydon Hoover MD . Caprini VTE Risk Assessment Caprini VTE Risk Assessment: Mod/High Risk (score >= 2) Caprini Risk Assessment Model Point Value = 1 Point Value = 2 Point Value = 3 Point Value = 5 Age 41-60 Minor surgery BMI > 25 kg/m2 Swollen legs Varicose veins or History of unexplained or recurrent spontaneous Oral contraceptives or hormone replacement Sepsis (< 1 month) Serious lung disease, including pneumonia (< 1 month) Abnormal pulmonary function Acute myocardial infarction Congestive heart failure (< 1 month) History of inflammatory bowel disease Medical patient at bed rest Age 61-74 Arthroscopic surgery Major open surgery (> 45 min) Laparoscopic surgery (> 45 min) Malignancy Confined to bed (> 72 hours) Immobilizing plaster cast Central venous access Age >= 75 History of VTE Family history of VTE Factor V Leiden Prothrombin [id number] Lupus anticoagulant Anticardiolipin antibodies Elevated serum homocysteine Heparin-induced thrombocytopenia Other congenital or acquired thrombophilia Stroke (< 1 month) Elective arthroplasty Hip, pelvis, or leg fracture Acute spinal cord injury (< 1 month) Prophylaxis Regimen Total Risk Factor Score Risk Level Prophylaxis Regimen 0-1 Low Early ambulation 2 Moderate Order ONE of the following: *Sequential Compression Device (SCD) *Heparin 5000 units SQ BID 3-4 Higher Order ONE of the following medications: *Heparin 5000 units SQ TID *Enoxaparin/Lovenox 40 mg SQ daily (WT < 150 kg, CrCl > 30 mL/min) *Enoxaparin/Lovenox 30 mg SQ daily (WT < 150 kg, CrCl > 10-29 mL/min) *Enoxaparin/Lovenox 30 mg SQ BID (WT < 150 kg, CrCl > 30 mL/min) AND/OR *Sequential Compression Device (SCD) 5 or more Highest Order ONE of the following medications: *Heparin 5000 units SQ TID (Preferred with Epidurals) *Enoxaparin/Lovenox 40 mg SQ daily (WT < 150 kg, CrCl > 30 mL/min) *Enoxaparin/Lovenox 30 mg SQ daily (WT < 150 kg, CrCl > 10-29 mL/min) *Enoxaparin/Lovenox 30 mg SQ BID (WT < 150 kg, CrCl > 30 mL/min) AND *Sequential Compression Device (SCD) Assessment and Plan Problem List: (1) Cirrhosis of liver with ascites ICD Code: K74.60 - Cirrhosis of liver with ascites Status: Chronic (2) Abdominal pain ICD Code: R10.9 - Unspecified abdominal pain (3) Coagulopathy ICD Code: D68.9 - Coagulation defect, unspecified Status: Acute Assessment and Plan 56 y/o female with liver cirrhosis and severe abdominal pain: Abdominal pain symptomatic ascites vs symptomatic cholelithiasis vs SBP vs CBD stone - sees Dr. David Sarah with [facility] as an outpatient - will change consult (verbal order) - consider MRCP - Morphine 2 mg IVP q3h PRN Cirrhosis with ascites and pancytopenia - paracentesis when coagulation profile improves - monitor I and Os - recheck CBC in a.m. and follow results Coagulopathy secondary to chronic liver cirrhosis - INR 2.2, PT 24.8, PTT 45.1 - Vitamin K 10 mg subq x 1 dose, 5 mg p.o. daily - Transfuse with 2 units of FFP - recheck coagulation profile after transfusion Acute renal insufficiency likely secondary to diuretic use, dehydration, third- spacing - BUN 7, Creatinine 1.29, eGFR 52 - worse when compared to recent labs - repeat BMP - monitor for hepatorenal syndrome DVT prophylaxis - SCDs/TEDs (verbal order) Discussed Condition With ER physician, RN, and patient . Physician Certification 2 Midnight Certification Type: Admission for Inpatient Services Order for Inpatient Services The services are ordered in accordance with Medicare regulations or non- Medicare payer requirements, as applicable. In the case of services not specified as inpatient-only, they are appropriately provided as inpatient services in accordance with the 2-midnight benchmark. Estimated LOS (days): 3 days is the estimated time the patient will need to remain in the hospital, assuming treatment plan goals are met and no additional complications. Post-Hospital Plan: Not yet determined Problem Qualifiers (1) Cirrhosis of liver with ascites: Qualified Codes: K74.60 - Unspecified cirrhosis of liver Sonali Robledo Feb 24, 2017 05:21
[2017-02-24] MEDS ORDERED: LACTULOSE SYRUP 20 GM/30 ML CUP PO PRN (05:45)
[2017-02-24] MEDS: MORPHINE SULFATE 2 MG/ML INJ IV PUSH PRN ×2 (06:15→20:55)
[2017-02-24 07:00] LABS: BACTERIA, URINE FEW /hpf; BLOOD, URINE MOD (NEG); GLUCOSE,URINE NEG (NEG); KETONE, URINE NEG (NEG); NITRITE,URINE NEG (NEG); SQUAMOUS EPITHELIAL CELL URINE 9 /hpf (0-5); URINE COLOR DARK-YELLOW (YELLW/STRAW)
[2017-02-24 07:06] LABS: COMMENT (UR) CULTURE INDICATED; CULTURE IF INDICATED CULTURE INDICATED
[2017-02-24 08:44] LABS: HEMATOCRIT 25.4 % (35.0-46.0); MEAN CELL VOLUME 122.9 FL (80.0-100.0); MEAN CORPUSCULAR HEMOGLOBIN 42.8 PG (27.0-34.0); MEAN CORPUSCULAR HGB CONC 34.8 % (32.0-36.0); PLATELET COUNT 59 TH/MM3 (150-450); RED BLOOD COUNT 2.07 MIL/MM3 (4.00-5.30); RED CELL DISTRIBUTION WIDTH 20.1 % (11.6-17.2); WHITE BLOOD COUNT 4.4 TH/MM3 (4.0-11.0)
[2017-02-24 08:45] LABS: HEMO FLAGS AUTO DIFF
[2017-02-24 08:46] LABS: INTERNATIONAL NORMALIZED RATIO 1.9 RATIO; PROTHROMBIN TIME - PATIENT 22.1 SEC (9.8-11.6)
[2017-02-24] MEDS: FUROSEMIDE 40 MG TAB PO SCH (09:00)
[2017-02-24] MEDS: PANTOPRAZOLE SOD 40 MG DELAYED RELEASE TAB PO SCH (09:00)
[2017-02-24] MEDS: SODIUM CHLORIDE 0.9% FLUSH 10 ML FLUSH IV FLUSH SCH ×2 (09:00→20:48)
[2017-02-24] MEDS: RIFAXIMIN 550 MG TAB PO SCH ×2 (09:00→20:47)
[2017-02-24] MEDS: POTASSIUM CHLORIDE 10 MEQ CONTROLLED RELEASE TAB PO SCH (09:01)
[2017-02-24 09:03] LABS: ANION GAP 11 MEQ/L (5-15); AST (GOT) 328 U/L (15-37); BICARBONATE 23.2 MEQ/L (21.0-32.0); BLOOD UREA NITROGEN 8 MG/DL (7-18); CHLORIDE 100 MEQ/L (98-107); GLOMERULAR FILTRATION RATE 48 ML/MIN (>89); POTASSIUM 3.2 MEQ/L (3.5-5.1); SODIUM (NA) 134 MEQ/L (136-145)
[2017-02-24 09:04] LABS: ALT (GPT) 127 U/L (10-53)
[2017-02-24 09:07] LABS: ALKALINE PHOSPHATASE 205 U/L (45-117); TOTAL BILIRUBIN ADULT 7.7 MG/DL (0.2-1.0)
[2017-02-24 09:19] LABS: BANDS 4 % (0-6); CORRECTED NUCLEATED RBC 1 /100 WBC (0-0); EOSINOPHILS 1 % (0-4); NEUTROPHIL # MANUAL DIFF 2.6 TH/MM3 (1.8-7.7); POLYS (SEG NEUTROPHILS) 56 % (16-70); WBC DIFF SAMPLE 100
[2017-02-24 09:24] LABS: ROULEAUX PRESENT (NORMAL); TARGET CELLS 1+ (NORMAL)
[2017-02-24 09:25] LABS: PLATELET ESTIMATE SMEAR LOW (NORMAL); PLATELET MORPHOLOGY NORMAL (NORMAL); SCAN/DIFF FINAL DIFF MANUAL; SPHEROCYTES 1+ (NORMAL)
[2017-02-24] MEDS: SPIRONOLACTONE 100 MG TAB PO SCH ×2 (09:44→18:33)
--- NOTE | 2017-02-24 11:13 | MB ---
cc: ESPERANZA RUST DATE OF CONSULTATION 02/24/2017 DATE OF 1960 REASON FOR CONSULTATION Evaluation of recurrent refractory ascites. HISTORY OF PRESENT ILLNESS This is a 56-year-old female known to our practice. She has underlying cirrhosis due to a combination of alcohol intake and abuse in the past, although she states over the past month, she has not been drinking at all. She has a history of chronic hepatitis C apparently treated with antiviral therapy about 5-6 months ago. She has had recurrent ascites and she has had a paracentesis performed in January and also earlier this month February 13 with removal of four to five liters according to the patient. The patient has been on diuretics including Lasix and Aldactone. She had a rapid reaccumulation of ascites which was rather tense causing her abdominal discomfort and mild difficulty with breathing. The patient is known to be pancytopenic. Her labs reveal a white count of 3000, hemoglobin is 9, platelet count is 69,000. Her PT/INR were elevated. INR is 2.2 and 1.9. She is receiving fresh frozen plasma at this time. Other labs, creatinine is noted to be slightly elevated at 1.29. The JR-4 around 50. Her liver enzymes reveal alkaline phosphatase of 226. SGOT is 300, SGPT is 131. Albumin is 1.9, total bilirubin is 7.2. The imaging studies were performed including a CT of the abdomen and pelvis. This revealed severe ascites, cholelithiasis as noted. The common bile duct was noted to be about 8-9 mm. In the past, it was 7-8 mm. We were asked to evaluate her for that at this time. PAST MEDICAL HISTORY Includes the: 1. History of cirrhosis. 2. Chronic hepatitis C 3. She also has a history of hypertension, gastroesophageal reflux disease, esophageal stricture. 4. She denies any diabetes, CHF, atrial fibrillation, COPD, Kidney problems, seizure disorder or thyroid problems. PAST SURGICAL HISTORY She may have had a hernia repair. MEDICATIONS Include: 1. Xifaxan 2. Lactulose 3. Spirolactone 4. Lasix 5. Protonix ALLERGIES None FAMILY HISTORY Mother had stomach cancer. MEDICATIONS Her other medications at this time include: 1. Vitamin K 2. Naloxone 3. Ondansetron 4. Morphine SOCIAL HISTORY She has not been drinking for the past month. She smokes cigars. REVIEW OF SYSTEMS A 12-point review of systems is as stated above. She denies fever, chills or gastrointestinal bleeding. EXAMINATION This is a chronically ill-appearing female in no acute distress. VITAL SIGNS: Stable. She is afebrile. SKIN: Dry. HEAD, EYES, EARS, NOSE, AND THROAT: [place] sclerae is noted with icterus. Oral mucosa is also dry. She has lack of teeth in the upper mouth. NECK: Supple. CARDIAC: S1-S2 regular rhythm. CHEST: Decreased breath sounds bilaterally with poor inspiratory effort. ABDOMEN: The abdomen is distended with tense ascites, mild tenderness. No rebound or guarding. Umbilical hernia noted. EXTREMITIES: Without gross edema. IMPRESSION 1. Alcoholic cirrhosis 2. History hepatitis C treated. 3. Refractory and recurrent ascites. 4. Coagulopathy receiving vitamin K and FFP. 5. Elevated liver enzymes. 6. Cholelithiasis noted on imaging studies with common bowel duct up to 9 mm. 7. Pancytopenia PLAN 1. Continue with FFP therapy. 2. We will proceed with repeat large volume paracentesis at this point. 3. I have ordered an MRI/MRCP study to evaluate for any CBD stones, although ultrasound did not reveal any stones in the duct. The patient may be having reflection of worsening liver function due to parenchymal disease, but once again MR studies are being performed to rule out any intraductal stones or sludge. 4. Would continue her other medicines and supportive therapy for now. I have discussed this with the patient as well. Would continue to monitor LFT's as well. MD BRENNA Mcneill/LIZZETTE /10:38 AM /10:54 AM
--- NOTE | 2017-02-24 13:55 | EKG ---
Date Performed: 02/23/2017 Time Performed: 23:11:46 PTAGE: 56 years EKG: Sinus rhythm WITH SHORT MN INTERVAL NONSPECIFIC T-WAVE ABNORMALITY BORDERLINE ECG PREVIOUS TRACING : 11/03/2016 21.40 DOCTOR: Jevon Carias Interpretating Date/Time 02/24/2017 13:46:10
[2017-02-24] MEDS ORDERED: LIDOCAINE HCL 1% PF 30 ML VIAL ONE (14:50)
[2017-02-24] MEDS ORDERED: ALBUMIN 25% INJ 0 ML IV ONE (15:30)
--- NOTE | 2017-02-24 16:22 | PD.RAD ---
Post US Procedure Prog Note Pre Procedure Diagnosis: (1) Ascites Post Procedure Diagnosis: (1) Ascites Procedure Date: Feb 24, 2017 Supervising Radiologist: Urbano Nguyen Estimated blood loss: none Plan of Activity Patient to Unit: ROPU Patient Condition: Good See PACS Report for procedural detail/treatment Drainage Procedure Procedure 1 Imaging Guidance: Ultrasound Side: Right Procedure Type: Paracentesis Fluid Removal (CCs): 6300 Plan to ROPU for albumin then discharge. Urbano Nguyen MD Feb 24, 2017 16:22
--- NOTE | 2017-02-24 16:24 | RADRPT ---
EXAM DATE/TIME: 02/24/2017 14:49 [facility] COMPARISON: US GUIDED ABD PARACENTESIS, February 03, 2017, 9:55. INDICATIONS : Ascites. MEDICAL HISTORY : Hypercholesterolemia. Cirrhosis. Hepatitis C. HTN. Glaucoma. CVA. Arthritis. Tobacco use. SURGICAL HISTORY : Hernia repair. Paracentesis. ENCOUNTER: Subsequent ACUITY: 3 weeks PAIN SCORE: 2/10 LOCATION: Right lower extremity FLUID: Total volume of 6300 cc of clear, yellow fluid was removed. Fluid was sent to lab for ordered studies. Post procedure scanning reveals no hematoma or other complication. TECHNIQUE: 1. Ultrasound guidance for abdominal paracentesis. 2. Paracentesis. The risks, benefits, and alternatives to ultrasound guided paracentesis were explained to the patient in detail including the risk of bleeding and infection. Written and verbal informed consent was obt ained. With the patient on the ultrasound table, ultrasound imaging was used to select the most appropriate approach for paracentesis. Overlying skin was prepped and draped in the usual sterile fashion and wi th a local anesthetic, a dermatotomy was made with an 11 blade scalpel. A 6 [place] Ycp-[id number] ca theter was introduced into the peritoneal cavity and fluid was collected. The patient tolerated the procedure well and left the ultrasound suite in stable condition. CONCLUSION: Uncomplicated ultrasound guided paracentesis. Urbano Ngueyn MD on February 24, 2017 at 16:20 Board Certified Radiologist. This report was verified electronically.
[2017-02-24] MEDS ORDERED: ALBUMIN 25% INJ 100 ML IV ONE (17:15)
[2017-02-24] MEDS ORDERED: ALBUMIN 25% INJ 50 ML IV ONE (17:15)
[2017-02-24 18:43] LABS: PERITONEAL LYMPHS 42 %; PERITONEAL MESOTHELIAL 16 %; PERITONEAL MONOS 30 %; PERITONEAL POLYS(SEGS) 12 %
[2017-02-24 18:44] LABS: PERITONEAL WBC 40 /MM3 (0-10)
--- NOTE | 2017-02-24 19:06 | RADRPT ---
EXAM DATE/TIME: 02/24/2017 18:01 [facility] COMPARISON: US ABDOMEN - GALLBLADDER, February 24, 2017, 2:32. CT ABDOMEN & PELVIS W CONTRAST, February 23, 2017, 22:47. INDICATIONS : Severe ascites. MEDICAL HISTORY : Hepatitis C. Hypertension. Cirrhosis. SURGICAL HISTORY : Inguinal hernia repair. Abdominal surgery for ascites. ENCOUNTER: Initial ACUITY: 2 day PAIN SCORE: 3/10 LOCATION: abdomen TECHNIQUE: Multiplanar, multisequence magnetic resonance imaging of the abdomen was performed. High-resolution 3D dataset was utilized to reconstruct maximum-intensity projection (MIP) images. FINDINGS: INTRAHEPATIC BILE DUCTS: Within normal limits. No significant anatomical variant is present. EXTRAHEPATIC BILE DUCTS: The common bile duct measures 8 mm in width and is anatomically normal No stone or filling defect is identified. GALLBLADDER: Visualized this luminal structure with wall thickening and apparent stones.. LIVER: There is ascitic fluid in the upper abdomen around the liver and spleen and the liver reveals a lobul ar margins suggesting cirrhosis. PANCREAS: The main pancreatic duct is normal in size. There is no significant anatomical variant. Signal inte nsity is within normal limits. No mass is visualized on this non-contrast exam. OTHER: The remaining visualized structures demonstrate no acute abnormality on this non-contrast exam. CONCLUSION: Findings consistent with cirrhosis of the liver with ascites and the gallbladder has a thickened wall with stones within this. Common bile duct measures 8 mm in width and is anatomically n ormal with no evidence of retained stones or stricture formation with pancreatic head appearing marybeth l. Raj Lujan MD on February 24, 2017 at 19:00 Board Certified Radiologist. This report was verified electronically.
[2017-02-25] VITALS (12 sets, daily range): BP systolic 84–102; BP diastolic 5–58; PULSE 80–92; RESP 18–20; TEMP 96.7–98.4; O2SAT 97–100
--- NOTE | 2017-02-25 08:43 | HHI.GIFU ---
Subjective Remarks Feeling better today...VSS s/p Paracentesis x 6+ liters removed.... MRCP neg for cbd stones Objective Vitals I&O Vital Signs Date Time Temp Pulse Resp B/P (MAP) Pulse Ox O2 Delivery O2 Flow Rate FiO2 02/25/17 07:39 98.0 87 19 84/54 (64) 100 02/25/17 03:54 85 02/25/17 03:41 98.4 88 19 91/50 (64) 99 02/25/17 00:07 83 02/24/17 23:14 98.1 83 19 93/50 (64) 97 02/24/17 20:51 90 02/24/17 19:31 97.7 88 19 87/52 (64) 99 02/24/17 16:59 97.3 86 24 101/57 (72) 98 02/24/17 16:20 85 02/24/17 16:18 97.7 85 14 107/72 (84) 98 02/24/17 16:00 97.7 86 14 113/70 (84) 98 02/24/17 14:55 97.0 86 20 116/74 (88) 96 02/24/17 12:47 97.6 84 24 120/69 (86) 98 02/24/17 12:44 85 02/24/17 11:49 97.5 88 18 108/65 99 02/24/17 09:55 86 02/24/17 09:03 97.5 87 20 107/60 (76) 99 I/O 02/24/17 02/24/17 02/24/17 02/25/17 02/25/17 02/25/17 07:00 15:00 23:00 07:00 15:00 23:00 Intake Total 1244 ml 351 ml 100 ml Balance 1244 ml 351 ml 100 ml Intake IV Total 100 ml FFP 214 ml 321 ml Blood Product IV Normal Saline Flush 1030 ml 30 ml # Voids 1 3 Laboratory Laboratory Tests Test 02/24/17 15:15 Peritoneal Fluid WBC 40 Peritoneal Fluid RBC 441 Peritoneal Fluid Neutrophils 12 Peritoneal Fluid Lymphocytes 42 Peritoneal Fluid Monocytes 30 Peritoneal Fluid Mesothelial Cells 16 Peritoneal Fluid Glucose 123 Date/Time Source Procedure Growth Status 02/24/17 15:15 Fluid Peritoneal Fluid Gram Stain Pending Received 02/24/17 15:15 Fluid Peritoneal Fluid Body Fluid Culture Pending Received 02/24/17 06:45 Urine Clean Catch Urine Culture Pending Received Imaging MRI results reviewed and nno evidence of CBD stones present Physical Exam CHEST: Chest is clear to auscultation and percussion. CARDIAC: Regular rate and rhythm with no murmur gallop or rubs. ABDOMEN: Soft, less distended nontender; ; bowel sounds are present in all four quadrants. EXTREMITIES: No clubbing, cyanosis, or edema. SKIN: Normal; no rash; . Assessment and Plan Assessment: (1) Hepatitis C, chronic ICD Codes: B18.2 - Hepatitis C, chronic Status: Chronic (2) Coagulopathy ICD Codes: D68.9 - Coagulation defect, unspecified Status: Acute (3) Cirrhosis of liver with ascites ICD Codes: K74.60 - Cirrhosis of liver with ascites Status: Chronic (4) Abdominal pain ICD Codes: R10.9 - Abdominal pain Status: Resolved (5) Thrombocytopenia ICD Codes: D69.6 - Thrombocytopenia Status: Resolved (6) Alcoholic hepatitis with ascites ICD Codes: K70.11 - Alcoholic hepatitis with ascites Status: Acute Plan Discussed case w pt will increase lasix therapy to 40 mg bid lenny [facility] hopefully d/c in 1 -2 days w outpt follow up Dr Sarah in our office ....If fluid/ascites recurs pt may need peritoneal cath placement fro repeated paracentesis procedures Problem Qualifiers (1) Cirrhosis of liver with ascites: Qualified Codes: K74.60 - Unspecified cirrhosis of liver (2) Abdominal pain: Qualified Codes: R10.84 - Generalized abdominal pain Eric Bowens MD Feb 25, 2017 08:43
[2017-02-25] MEDS ORDERED: INFLUENZA VIRUS VACCINE (QUADRIVALENT) 0.5 ML SYR IM ONE (09:00)
[2017-02-25] MEDS ORDERED: PNEUMOCOCCAL POLYVALENT INJ 25 MCG/0.5 ML SYR IM ONE (09:00)
[2017-02-25] MEDS: PHYTONADIONE 5 MG TAB PO SCH (09:28)
[2017-02-25] MEDS: POTASSIUM CHLORIDE 10 MEQ CONTROLLED RELEASE TAB PO SCH (09:28)
[2017-02-25] MEDS: RIFAXIMIN 550 MG TAB PO SCH ×2 (09:28→21:03)
[2017-02-25] MEDS: FUROSEMIDE 40 MG TAB PO SCH ×2 (09:28→21:04)
[2017-02-25] MEDS: SODIUM CHLORIDE 0.9% FLUSH 10 ML FLUSH IV FLUSH SCH ×2 (09:28→21:04)
[2017-02-25] MEDS: SPIRONOLACTONE 100 MG TAB PO SCH ×2 (09:28→17:28)
[2017-02-25] MEDS: PANTOPRAZOLE SOD 40 MG DELAYED RELEASE TAB PO SCH (09:28)
[2017-02-25 15:56] LABS: ALT (GPT) 97 U/L (10-53); ANION GAP 4 MEQ/L (5-15); AST (GOT) 244 U/L (15-37); BICARBONATE 27.6 MEQ/L (21.0-32.0); BLOOD UREA NITROGEN 9 MG/DL (7-18); CHLORIDE 103 MEQ/L (98-107); GLOMERULAR FILTRATION RATE 58 ML/MIN (>89); POTASSIUM 3.8 MEQ/L (3.5-5.1); SODIUM (NA) 135 MEQ/L (136-145)
[2017-02-25 15:58] LABS: ALKALINE PHOSPHATASE 147 U/L (45-117); TOTAL BILIRUBIN ADULT 7.6 MG/DL (0.2-1.0)
--- NOTE | 2017-02-25 16:10 | HHI.PR ---
Subjective Remarks Appreciate laying in bed she had thoracentesis Stated she feels dizzy, no abdominal pain at this point, icterus sclera, distention in the abdomen is much less Objective Vitals Vital Signs Date Time Temp Pulse Resp B/P (MAP) Pulse Ox O2 Delivery O2 Flow Rate FiO2 02/25/17 15:23 85 02/25/17 15:01 97.8 85 20 100/58 (72) 100 02/25/17 11:01 96.7 88 18 102/58 (73) 97 02/25/17 08:12 92 02/25/17 07:39 98.0 87 19 84/54 (64) 100 02/25/17 03:54 85 02/25/17 03:41 98.4 88 19 91/50 (64) 99 02/25/17 00:07 83 02/24/17 23:14 98.1 83 19 93/50 (64) 97 02/24/17 20:51 90 02/24/17 19:31 97.7 88 19 87/52 (64) 99 02/24/17 16:59 97.3 86 24 101/57 (72) 98 02/24/17 16:20 85 02/24/17 16:18 97.7 85 14 107/72 (84) 98 I/O 02/24/17 02/24/17 02/24/17 02/25/17 02/25/17 02/25/17 07:00 15:00 23:00 07:00 15:00 23:00 Intake Total 1244 ml 351 ml 100 ml Balance 1244 ml 351 ml 100 ml Intake IV Total 100 ml FFP 214 ml 321 ml Blood Product IV Normal Saline Flush 1030 ml 30 ml # Voids 1 3 Result Diagram: 02/24/17 0620 02/25/17 1423 Objective Remarks - GENERAL: This is a well-nourished, well-developed patient, in no apparent distress. SKIN: No rashes, warm and dry HEAD: Atraumatic. Normocephalic. EYES: Pupils equal round and reactive. Extraocular motions intact positive s cleral icterus. ENT: Nose without bleeding, or drainage, Airway patent. NECK: Trachea midline. Supple CARDIOVASCULAR: Regular rate and rhythm without murmurs, gallops, or rubs. RESPIRATORY: Fair air entry bilaterally. No wheezes, rales, or rhonchi. GASTROINTESTINAL: Abdomen soft, non-tender, nondistended. Positive bowel sounds MUSCULOSKELETAL: Extremities without clubbing, cyanosis, or edema. Pedal pulses appreciated NEUROLOGICAL: Awake and alert. Moves all extremity. Normal speech.no focal neurological deficit A/P Problem List: (1) Cirrhosis of liver with ascites ICD Code: K74.60 - Cirrhosis of liver with ascites Status: Chronic (2) Abdominal pain ICD Code: R10.9 - Unspecified abdominal pain (3) Coagulopathy ICD Code: D68.9 - Coagulation defect, unspecified Status: Acute Assessment and Plan 56 y/o female with liver cirrhosis and severe abdominal pain: Abdominal pain symptomatic ascites vs symptomatic cholelithiasis vs SBP vs CBD stone - sees Dr. David Sarah with [facility] as an outpatient -they were consulted appreciated their input, plan for discharge within 1 or 2 days if the ascites recur the recommended peritoneal catheter - Morphine 2 mg IVP q3h PRN Cirrhosis with ascites and pancytopenia - Discussed paracentesis - monitor I and Os Per GI if ascites recur patient will need peritoneal catheter drain are Coagulopathy secondary to chronic liver cirrhosis - INR 2.2, status post vitamin K and FFP Acute renal insufficiency likely secondary to diuretic use, dehydration, third- spacing Monitor lab, avoid nephrotoxin, monitor urine output DVT prophylaxis - SCDs/TEDs (verbal order) Problem Qualifiers (1) Cirrhosis of liver with ascites: Qualified Codes: K74.60 - Unspecified cirrhosis of liver Carlos Segura MD Feb 25, 2017 16:10
[2017-02-26] VITALS: BP 95/53; PULSE 81; RESP 20; TEMP 98; O2SAT 98
[2017-02-26 04:00] VITALS: BP 101/56; PULSE 84; RESP 20; TEMP 98; O2SAT 98
[2017-02-26] MEDS: MORPHINE SULFATE 2 MG/ML INJ IV PUSH PRN (04:52)
[2017-02-26 08:00] VITALS: BP 108/60; PULSE 86; RESP 16; TEMP 98.5; O2SAT 97
[2017-02-26] MEDS: SODIUM CHLORIDE 0.9% FLUSH 10 ML FLUSH IV FLUSH SCH ×2 (08:01→20:21)
[2017-02-26] MEDS: PANTOPRAZOLE SOD 40 MG DELAYED RELEASE TAB PO SCH (08:31)
[2017-02-26] MEDS: FUROSEMIDE 40 MG TAB PO SCH ×2 (08:31→20:21)
[2017-02-26] MEDS: SPIRONOLACTONE 100 MG TAB PO SCH ×2 (08:31→18:10)
[2017-02-26] MEDS: RIFAXIMIN 550 MG TAB PO SCH ×2 (08:31→20:21)
[2017-02-26] MEDS: PHYTONADIONE 5 MG TAB PO SCH (08:32)
[2017-02-26] MEDS: POTASSIUM CHLORIDE 10 MEQ CONTROLLED RELEASE TAB PO SCH (08:32)
[2017-02-26 08:55] VITALS: PULSE 89
[2017-02-26 11:27] VITALS: BP 103/66; PULSE 88; RESP 16; TEMP 98.2; O2SAT 98
--- NOTE | 2017-02-26 14:29 | HHI.PR ---
Subjective Remarks Patient complaint of severe tenderness again in her abdomen Looks very fatigued and tired Looks like abdomen started to get distended again Discussed with the nurse will notify GI Objective Vitals Vital Signs Date Time Temp Pulse Resp B/P (MAP) Pulse Ox O2 Delivery O2 Flow Rate FiO2 02/26/17 11:27 98.2 88 16 103/66 (78) 98 02/26/17 08:55 89 02/26/17 08:27 Room Air 02/26/17 08:00 98.5 86 16 108/60 (76) 97 02/26/17 04:00 98.0 84 20 101/56 (71) 98 02/26/17 00:00 98.0 81 20 95/53 (67) 98 02/25/17 20:00 85 02/25/17 19:00 98.1 80 20 91/5 (33) 99 02/25/17 17:52 85 02/25/17 16:00 98.2 82 18 101/56 (71) 97 02/25/17 15:23 85 02/25/17 15:01 97.8 85 20 100/58 (72) 100 I/O 02/25/17 02/25/17 02/25/17 02/26/17 02/26/17 02/26/17 07:00 15:00 23:00 07:00 15:00 23:00 Intake Total 480 ml Balance 480 ml Intake Oral 480 ml # Voids 3 1 Result Diagram: 02/24/17 0620 02/25/17 1423 Objective Remarks - GENERAL: This is a well-nourished, well-developed patient, in no apparent distress. SKIN: No rashes, warm and dry HEAD: Atraumatic. Normocephalic. EYES: Pupils equal round and reactive. Extraocular motions intact positive s cleral icterus. ENT: Nose without bleeding, or drainage, Airway patent. NECK: Trachea midline. Supple CARDIOVASCULAR: Regular rate and rhythm without murmurs, gallops, or rubs. RESPIRATORY: Fair air entry bilaterally. No wheezes, rales, or rhonchi. GASTROINTESTINAL: Abdomen soft, tender again to palpation with a level of distention today. Positive bowel sounds MUSCULOSKELETAL: Extremities without clubbing, cyanosis, or edema. Pedal pulses appreciated NEUROLOGICAL: Awake and alert. Moves all extremity. Normal speech.no focal neurological deficit A/P Problem List: (1) Cirrhosis of liver with ascites ICD Code: K74.60 - Cirrhosis of liver with ascites Status: Chronic (2) Abdominal pain ICD Code: R10.9 - Unspecified abdominal pain (3) Coagulopathy ICD Code: D68.9 - Coagulation defect, unspecified Status: Acute Assessment and Plan 56 y/o female with liver cirrhosis and severe abdominal pain: Abdominal pain symptomatic ascites vs symptomatic cholelithiasis vs SBP vs CBD stone - sees Dr. David Sarah with [facility] as an outpatient -they were consulted appreciated their input, if the ascites recur the recommended peritoneal catheter - Morphine 2 mg IVP q3h PRN -Recurrent distention and severe tenderness in the abdomen ? Recurrent ascites with SBP, awaiting GI recommendation for possible peritoneal catheter, recent peritoneal fluid neutrophils this 25, will defer starting antibiotic for GI Cirrhosis with ascites and pancytopenia - Discussed paracentesis - monitor I and Os Per GI if ascites recur patient will need peritoneal catheter drain are Coagulopathy secondary to chronic liver cirrhosis - INR 1.9, status post vitamin K and FFP Acute renal insufficiency likely secondary to diuretic use, dehydration, third- spacing Monitor lab, avoid nephrotoxin, monitor urine output Creatinine trending down 1.7 on 02/26 DVT prophylaxis - SCDs/TEDs (verbal order) Problem Qualifiers (1) Cirrhosis of liver with ascites: Qualified Codes: K74.60 - Unspecified cirrhosis of liver Carlos Segura MD Feb 26, 2017 14:29
[2017-02-26 15:37] LABS: BASOPHIL % 0.5 % (0.0-2.0); EOSINOPHIL % 0.7 % (0.0-4.0); HEMATOCRIT 24.1 % (35.0-46.0); LYMPH % 23.1 % (9.0-44.0); LYMPHOCYTE # 0.8 TH/MM3 (1.0-4.8); MEAN CELL VOLUME 123.3 FL (80.0-100.0); MEAN CORPUSCULAR HEMOGLOBIN 43.6 PG (27.0-34.0); MEAN CORPUSCULAR HGB CONC 35.3 % (32.0-36.0); MONO % 19.4 % (0.0-8.0); NEUT % 56.3 % (16.0-70.0); PLATELET COUNT 61 TH/MM3 (150-450); RED BLOOD COUNT 1.96 MIL/MM3 (4.00-5.30); RED CELL DISTRIBUTION WIDTH 20.1 % (11.6-17.2); WHITE BLOOD COUNT 3.6 TH/MM3 (4.0-11.0)
[2017-02-26 15:54] LABS: HEMO FLAGS AUTO DIFF
[2017-02-26 16:43] LABS: WESTERGREN SEDIMENTATION RATE GREATER THAN 140 mm/hr (0-30)
[2017-02-26 16:51] LABS: PLATELET ESTIMATE SMEAR LOW (NORMAL); PLATELET MORPHOLOGY NORMAL (NORMAL); SCAN/DIFF AUTO DIFF CONFIRMED; TARGET CELLS 2+ (NORMAL)
[2017-02-26 20:00] VITALS: BP 116/68; PULSE 87; PULSE 88; RESP 20; TEMP 97.7; O2SAT 100
[2017-02-27] VITALS (7 sets, daily range): BP systolic 95–106; BP diastolic 51–65; PULSE 82–87; RESP 17–19; TEMP 97.8–98.5; O2SAT 95–99
[2017-02-27] MEDS: PANTOPRAZOLE SOD 40 MG DELAYED RELEASE TAB PO SCH (08:46)
[2017-02-27] MEDS: RIFAXIMIN 550 MG TAB PO SCH ×2 (08:46→21:39)
[2017-02-27] MEDS: FUROSEMIDE 40 MG TAB PO SCH ×2 (08:46→21:39)
[2017-02-27] MEDS: SPIRONOLACTONE 100 MG TAB PO SCH ×2 (08:46→18:06)
[2017-02-27] MEDS: POTASSIUM CHLORIDE 10 MEQ CONTROLLED RELEASE TAB PO SCH (08:46)
[2017-02-27] MEDS: SODIUM CHLORIDE 0.9% FLUSH 10 ML FLUSH IV FLUSH SCH ×2 (08:46→21:39)
[2017-02-27] MEDS: MORPHINE SULFATE 2 MG/ML INJ IV PUSH PRN (10:56)
[2017-02-27] MEDS ORDERED: CEFEPIME INJ 2,000 MG in SODIUM CHLORIDE 0.9% INJ 100 ML IV SCH ×2 (11:00→12:00)
[2017-02-27] MEDS ORDERED: PIPERACIL-TAZO 4.5 GM PREMIX 100 ML IV SCH ×2 (11:00→12:00)
[2017-02-27 12:06] LABS: RETIC % 4.7 % (0.4-3.0)
--- NOTE | 2017-02-27 12:11 | HHI.PR ---
Subjective Remarks Patient still having tenderness abdomen with increased distention, she doesn't feel very well No leukocytosis but positive left shift, no nausea or vomiting but the abdomen looks more distended Objective Vitals Vital Signs Date Time Temp Pulse Resp B/P (MAP) Pulse Ox O2 Delivery O2 Flow Rate FiO2 02/27/17 12:00 98.1 84 18 95/51 (66) 99 02/27/17 08:00 98.2 85 18 96/55 (69) 98 02/27/17 04:00 98.2 83 19 103/55 (71) 99 02/27/17 00:00 97.8 82 19 97/65 (76) 99 02/26/17 20:00 97.7 88 20 116/68 (84) 100 02/26/17 20:00 Room Air 02/26/17 20:00 87 02/26/17 16:32 Room Air I/O 02/26/17 02/26/17 02/26/17 02/27/17 02/27/17 02/27/17 07:00 15:00 23:00 07:00 15:00 23:00 Intake Total 480 ml 600 ml 240 ml Output Total 500 ml Balance 480 ml 600 ml -260 ml Intake Oral 480 ml 600 ml 240 ml Output Urine Total 500 ml # Voids 1 3 # Bowel Movements 0 0 Result Diagram: 02/26/17 1447 02/25/17 1423 Objective Remarks - GENERAL: This is a well-nourished, well-developed patient, in no apparent distress. SKIN: No rashes, warm and dry HEAD: Atraumatic. Normocephalic. EYES: Pupils equal round and reactive. Extraocular motions intact positive s cleral icterus. ENT: Nose without bleeding, or drainage, Airway patent. NECK: Trachea midline. Supple CARDIOVASCULAR: Regular rate and rhythm without murmurs, gallops, or rubs. RESPIRATORY: Fair air entry bilaterally. No wheezes, rales, or rhonchi. GASTROINTESTINAL: Abdomen soft, tender again to palpation with a level of distention today. Positive bowel sounds MUSCULOSKELETAL: Extremities without clubbing, cyanosis, or edema. Pedal pulses appreciated NEUROLOGICAL: Awake and alert. Moves all extremity. Normal speech.no focal neurological deficit A/P Problem List: (1) Cirrhosis of liver with ascites ICD Code: K74.60 - Cirrhosis of liver with ascites Status: Chronic (2) Abdominal pain ICD Code: R10.9 - Unspecified abdominal pain (3) Coagulopathy ICD Code: D68.9 - Coagulation defect, unspecified Status: Acute Assessment and Plan 56 y/o female with liver cirrhosis and severe abdominal pain: Abdominal pain symptomatic ascites vs symptomatic cholelithiasis vs SBP vs CBD stone - sees Dr. David Sarah with [facility] as an outpatient -they were consulted appreciated their input, if the ascites recur the recommended peritoneal catheter - Morphine 2 mg IVP q3h PRN -Recurrent distention with significant tenderness in the abdomen ? In light of positive strep virridan and Corynebacterium intraperitoneal fluid, increased ESR CRP, suspicious SBP despite neutrophils count is only 25, awaiting GI recommendation for possible peritoneal catheter, I will start cefepime and Zosyn and consult ID Check INR today and stop vitamin K if needed Cirrhosis with ascites and pancytopenia - Discussed paracentesis - monitor I and Os Per GI if ascites recur patient will need peritoneal catheter drain are Coagulopathy secondary to chronic liver cirrhosis - INR 1.9, agent has been placed on daily vitamin K and was given FFP at admission, follow INR Acute renal insufficiency likely secondary to diuretic use, dehydration, third- spacing Monitor lab, avoid nephrotoxin, monitor urine output Creatinine trending down 1.7 on 02/26 DVT prophylaxis - SCDs/TEDs (verbal order) Problem Qualifiers (1) Cirrhosis of liver with ascites: Qualified Codes: K74.60 - Unspecified cirrhosis of liver Carlos Segura MD Feb 27, 2017 12:11
[2017-02-27 12:12] LABS: REVIEW FLAG FINAL
[2017-02-27 12:15] LABS: INTERNATIONAL NORMALIZED RATIO 2.2 RATIO; PROTHROMBIN TIME - PATIENT 25.4 SEC (9.8-11.6)
--- NOTE | 2017-02-27 13:05 | HHI.GIFU ---
Subjective Remarks Pt c/o further abdominal distention despite rx aslo fluid culture pos for Strep Viridans/ Corynebacteria some abdominal pain 2 to reaccumulation of ascites fluid Abs started Objective Vitals I&O Vital Signs Date Time Temp Pulse Resp B/P (MAP) Pulse Ox O2 Delivery O2 Flow Rate FiO2 02/27/17 12:00 98.1 84 18 95/51 (66) 99 02/27/17 08:00 98.2 85 18 96/55 (69) 98 02/27/17 04:00 98.2 83 19 103/55 (71) 99 02/27/17 00:00 97.8 82 19 97/65 (76) 99 02/26/17 20:00 97.7 88 20 116/68 (84) 100 02/26/17 20:00 Room Air 02/26/17 20:00 87 02/26/17 16:32 Room Air I/O 02/26/17 02/26/17 02/26/17 02/27/17 02/27/17 02/27/17 07:00 15:00 23:00 07:00 15:00 23:00 Intake Total 480 ml 600 ml 240 ml Output Total 500 ml Balance 480 ml 600 ml -260 ml Intake Oral 480 ml 600 ml 240 ml Output Urine Total 500 ml # Voids 1 3 # Bowel Movements 0 0 Laboratory Laboratory Tests Test 02/26/17 14:47 02/27/17 11:30 White Blood Count 3.6 Red Blood Count 1.96 Hemoglobin 8.5 Hematocrit 24.1 Mean Corpuscular Volume 123.3 Mean Corpuscular Hemoglobin 43.6 Mean Corpuscular Hemoglobin Concent 35.3 Red Cell Distribution Width 20.1 Platelet Count 61 Mean Platelet Volume 8.0 Neutrophils (%) (Auto) 56.3 Lymphocytes (%) (Auto) 23.1 Monocytes (%) (Auto) 19.4 Eosinophils (%) (Auto) 0.7 Basophils (%) (Auto) 0.5 Neutrophils # (Auto) 2.0 Lymphocytes # (Auto) 0.8 Monocytes # (Auto) 0.7 Eosinophils # (Auto) 0.0 Basophils # (Auto) 0.0 CBC Comment AUTO DIFF Differential Comment AUTO DIFF CONFIRMED Platelet Estimate LOW Platelet Morphology Comment NORMAL Target Cells 2+ Erythrocyte Sedimentation Rate GREATER THAN 140 C-Reactive Protein 2.70 Reticulocyte Count 4.7 Absolute Reticulocyte Count 89.7 Prothrombin Time 25.4 Prothromb Time International Ratio 2.2 Date/Time Source Procedure Growth Status 02/27/17 11:34 Blood Peripheral Aerobic Blood Culture Pending Received 02/27/17 11:34 Blood Peripheral Anaerobic Blood Culture Pending Received 02/24/17 15:15 Fluid Peritoneal Fluid Gram Stain - Final Complete 02/24/17 15:15 Body Fluid Culture - Final Viridans Streptococcus Grp Corynebacterium Sp Complete 02/24/17 06:45 Urine Clean Catch Urine Culture - Final 50-100,000 CFU/ML MIXED GRAM POSITIVE... Complete Physical Exam CHEST: Chest is clear to auscultation and percussion. CARDIAC: Regular rate and rhythm with no murmur gallop or rubs. ABDOMEN: ascitic distention noted again, semi tense, mild diffuse tenderness no rebound EXTREMITIES: No clubbing, cyanosis, or edema. SKIN: Normal; no rash; . Assessment and Plan Assessment: (1) Hepatitis C, chronic ICD Codes: B18.2 - Hepatitis C, chronic Status: Chronic (2) Coagulopathy ICD Codes: D68.9 - Coagulation defect, unspecified Status: Acute (3) Cirrhosis of liver with ascites ICD Codes: K74.60 - Cirrhosis of liver with ascites Status: Chronic (4) Abdominal pain ICD Codes: R10.9 - Abdominal pain Status: Resolved (5) Thrombocytopenia ICD Codes: D69.6 - Thrombocytopenia Status: Resolved (6) Alcoholic hepatitis with ascites ICD Codes: K70.11 - Alcoholic hepatitis with ascites Status: Acute Plan Discussed case w pt since pt has been reaccumulating fluid rapidly she will require peritoneal cath placement by IR for future paracentesis procedures.... Pt has severe liver dx 2 to etoh abuse in past. Problem Qualifiers (1) Cirrhosis of liver with ascites: Qualified Codes: K74.60 - Unspecified cirrhosis of liver (2) Abdominal pain: Qualified Codes: R10.84 - Generalized abdominal pain Eric Bowens MD Feb 27, 2017 13:05
--- NOTE | 2017-02-27 13:33 | PD.CONS ---
History of Present Illness Service Infectious disease Consult Requested By Dr Félix Segura Reason for Consult Evaluate patient with ascites, positive culture Primary Care Physician RIOS Cooney Diagnoses: History of Present Illness Patient seen and examined. Records reviewed. Patient is a 56-year-old female, with known history of cirrhosis, aided to her history of alcohol abuse, also has a history of hepatitis C, has had problem with recurrent ascites. She has had different procedures done for drainage of her recurrent ascites. She came in this time for further evaluation and treatment of recurrent abdominal distention as well as discomfort causing some difficulty in her breathing. She has not had any fever or chills or sweats. Patient has had problem with underlying pancytopenia which is most likely due to her known liver disease, alcohol abuse and likely bone marrow suppression. On this admission, she underwent paracenteses, and IR took out 6.3 L of fluid. Fluid analysis is fairly unremarkable with no evidence of peritonitis. However the culture now is reported as growing rare strep and corynebacterium. Patient is complaining of abdominal discomfort related to increasing distention , and fluid accumulation. She has not had any fever. Infectious disease consultation has been requested to evaluate the patient. Review of Systems Constitutional: DENIES: Fever, Chills Eyes: DENIES: Eye pain Ears, nose, mouth, throat: DENIES: Nasal discharge, Oral lesions, Throat pain, Ear Pain, Running Nose, Epistaxis Respiratory: COMPLAINS OF: Shortness of breath, DENIES: Cough, Sputum production Cardiovascular: DENIES: Chest pain, Palpitations, Syncope, Lower Extremity Edema Gastrointestinal: COMPLAINS OF: Abdominal pain, DENIES: Diarrhea, Nausea, Vomiting, Difficulty Swallowing Genitourinary: DENIES: Urinary frequency, Dysuria Musculoskeletal: DENIES: Joint pain, Joint Swelling Integumentary: DENIES: Rash Hematologic/lymphatic: DENIES: Lymphadenopathy Neurologic: DENIES: Localized weakness Psychiatric: DENIES: Hallucinations Past Family Social History Allergies: Coded Allergies: No Known Allergies (Verified , 02/23/17) Past Medical History Hypertension Alcoholic Cirrhosis Hepatitis C CVA - left sided residual Esophageal stricture Past Surgical History Multiple paracentesis EGD with esophageal dilatation Reported Medications I attest that I obtained, updated or reviewed the home and current medications. Reported Meds & Active Scripts Active Reported Xifaxan (Rifaximin) 550 Mg Tab 550 Mg PO Q12HR Lactulose Liq (Lactulose) 10 Gm/15 Ml Soln 15 Ml PO Q6H PRN Klor-Con 10 (Potassium Chloride) 10 Meq Tab 10 Meq PO DAILY Spironolactone 100 Mg Tab 100 Mg PO BIDPC Furosemide 40 Mg Tab 40 Mg PO DAILY Protonix (Pantoprazole Sodium) 40 Mg Tab 40 Mg PO DAILY Active Ordered Medications Cefepime IV Lasix Lactulose prn Morphine prn Narcan prn Protonix Zosyn IV Potassium Rifaximin ALdactone Family History Mother with stomach cancers Sister with uterine cancers Social History Tobacco: smokes cigars Alcohol: denies use x 1 month Illicit Drugs: denies . Physical Exam Vital Signs Vital Signs Date Time Temp Pulse Resp B/P (MAP) Pulse Ox O2 Delivery O2 Flow Rate FiO2 02/27/17 12:00 98.1 84 18 95/51 (66) 99 02/27/17 08:00 98.2 85 18 96/55 (69) 98 02/27/17 04:00 98.2 83 19 103/55 (71) 99 02/27/17 00:00 97.8 82 19 97/65 (76) 99 02/26/17 20:00 97.7 88 20 116/68 (84) 100 02/26/17 20:00 Room Air 02/26/17 20:00 87 02/26/17 16:32 Room Air Physical Exam GENERAL: Patient is a well-nourished, well-developed female, awake and alert , not in respiratory distress. SKIN: Warm and dry. No generalized rash, no ecchymoses and no evidence of embolic lesions. HEAD: Atraumatic. Normocephalic. No temporal wasting, or tenderness. EYES: [place] conjunctiva. No petechia or hemorrhage. Pupils equal, round and reactive to light. Extraocular movements full and intact. No scleral icterus. No injection or drainage. EARS, NOSE AND THROAT: Nose without bleeding or purulent nasal discharge. No sinus tenderness. Mucous membranes pink and moist. No oral lesions noted. No exudate. No oral thrush. NECK: Trachea midline. Supple and not tender, no meningeal signs CARDIOVASCULAR: Regular rate and rhythm. No murmurs, rubs or gallops heard RESPIRATORY: Clear to auscultation. Breath sounds equal bilaterally. No rales , wheezing or rhonchi. Decreased BS at the bases. ABDOMEN: Distended abdomen, with mild tenderness, no guarding, no rebound, no peritoneal signs. Bowel sounds present and normoactive. Has reducible midline ventral hernia. (+) fluid wave EXTREMITIES: No clubbing, cyanosis, or edema. No joint effusion, has good ROM. No calf tenderness. Well perfused and warm. NEUROLOGICAL: Awake and alert. Cranial nerves grossly intact. Motor grossly within normal limits. PSYCHIATRIC: Normal affect, calm and cooperative. LINE: No evidence of infection Laboratory Laboratory Tests Test 02/26/17 14:47 02/27/17 11:30 White Blood Count 3.6 Red Blood Count 1.96 Hemoglobin 8.5 Hematocrit 24.1 Mean Corpuscular Volume 123.3 Mean Corpuscular Hemoglobin 43.6 Mean Corpuscular Hemoglobin Concent 35.3 Red Cell Distribution Width 20.1 Platelet Count 61 Mean Platelet Volume 8.0 Neutrophils (%) (Auto) 56.3 Lymphocytes (%) (Auto) 23.1 Monocytes (%) (Auto) 19.4 Eosinophils (%) (Auto) 0.7 Basophils (%) (Auto) 0.5 Neutrophils # (Auto) 2.0 Lymphocytes # (Auto) 0.8 Monocytes # (Auto) 0.7 Eosinophils # (Auto) 0.0 Basophils # (Auto) 0.0 CBC Comment AUTO DIFF Differential Comment AUTO DIFF CONFIRMED Platelet Estimate LOW Platelet Morphology Comment NORMAL Target Cells 2+ Erythrocyte Sedimentation Rate GREATER THAN 140 C-Reactive Protein 2.70 Reticulocyte Count 4.7 Absolute Reticulocyte Count 89.7 Prothrombin Time 25.4 Prothromb Time International Ratio 2.2 Vitamin B12 Level GREATER THAN 2000 Folate 10.1 Date/Time Source Procedure Growth Status 02/27/17 11:34 Blood Peripheral Aerobic Blood Culture Pending Received 02/27/17 11:34 Blood Peripheral Anaerobic Blood Culture Pending Received 02/24/17 15:15 Fluid Peritoneal Fluid Gram Stain - Final Complete 02/24/17 15:15 Body Fluid Culture - Final Viridans Streptococcus Grp Corynebacterium Sp Complete 02/24/17 06:45 Urine Clean Catch Urine Culture - Final 50-100,000 CFU/ML MIXED GRAM POSITIVE... Complete Result Diagram: 02/26/17 1447 02/25/17 1423 Imaging RADIOLOGY STUDIES/FILMS REVIEWED Gall Bladder Ultrasound 02/24/17 0147 Signed Impressions: Service Date/Time: Friday, February 24, 2017 02:32 - CONCLUSION: 1. Cholelithiasis as above. Common duct dilatation without evidence of stone. MRCP could be performed for further evaluation if clinically indicated. Braydon Hoover MD Cyst Biopsy Asp-Paracentesis US 02/24/17 0000 Signed Impressions: Service Date/Time: Friday, February 24, 2017 14:49 - CONCLUSION: Uncomplicated ultrasound guided paracentesis. Urbano Nguyen MD Cholangiopancreatography MRI 02/24/17 0000 Signed Impressions: Service Date/Time: Friday, February 24, 2017 18:01 - CONCLUSION: Findings consistent with cirrhosis of the liver with ascites and the gallbladder has a thickened wall with stones within this. Common bile duct measures 8 mm in width and is anatomically normal with no evidence of retained stones or stricture formation with pancreatic head appearing normal. Raj Lujan MD Chest X-Ray 02/23/172226 Signed Impressions: Service Date/Time: Thursday, February 23, 2017 22:38 - CONCLUSION: No acute cardiopulmonary disease. Nestor Thomas MD Abdomen/Pelvis CT 02/23/172226 Signed Impressions: Service Date/Time: Thursday, February 23, 2017 22:47 - CONCLUSION: 1. Cirrhosis. 2. Severe ascites 3. Cholelithiasis Braydon Hoover MD Assessment and Plan Assessment and Plan IMPRESSION Recurrent ascites in patient with known ETOH liver disease - fluid analysis does not look infected - rare bacteria on C/S c/w contamination - clinically no evidence of peritonitis - she is however at risk for SBP ETOH liver disease Pancytopenia due to liver disease, hypersplenism and likely BM suppression from ETOH use Renal insufficiency RECOMMENDATION GI following patient - they are looking at procedure to manage the rapid reaccumulation of her ascites Stop Abx Send new fluid when she goes for her next ascites drainage procedure Monitor for S/Sxs of SBP Monitor progress I will follow along with you Thank you for this consultation Discussed Condition With Explained plan to the patient Mare Sanderson MD Feb 27, 2017 13:33
[2017-02-28] VITALS (7 sets, daily range): BP systolic 90–114; BP diastolic 54–70; PULSE 65–83; RESP 18–20; TEMP 97.4–98.4; O2SAT 93–100
[2017-02-28] MEDS: FUROSEMIDE 40 MG TAB PO SCH ×2 (09:22→20:10)
[2017-02-28] MEDS: SPIRONOLACTONE 100 MG TAB PO SCH ×2 (09:23→17:56)
[2017-02-28] MEDS: RIFAXIMIN 550 MG TAB PO SCH ×2 (09:23→20:10)
[2017-02-28] MEDS: PANTOPRAZOLE SOD 40 MG DELAYED RELEASE TAB PO SCH (09:23)
[2017-02-28] MEDS: POTASSIUM CHLORIDE 10 MEQ CONTROLLED RELEASE TAB PO SCH (09:23)
[2017-02-28] MEDS: SODIUM CHLORIDE 0.9% FLUSH 10 ML FLUSH IV FLUSH SCH ×2 (09:23→20:10)
--- NOTE | 2017-02-28 12:19 | HHI.FF ---
Face to Face Verification Diagnosis: (1) Alcoholic hepatitis with ascites (2) Hepatitis C, chronic (3) Thrombocytopenia (4) Ascites (5) Abdominal pain Physical Therapy Order: Evaluate and Treat, Improve ambulation, Strength and gait training Occupational Therapy Order: Evaluate and Treat, Improve ADL Home Health Nursing Order: Wound care and dressing changes Nursing assessment with vital signs Instructions: peritoneal cath assistance and maintenance. I have seen patient Lesli Dillard on 02/28/17. My clinical findings support the need for the requested home health care services because: Deconditioned w/ increased weakness I certify that my clinical findings support that this patient is homebound because: Unsteady gait/balance Martha Canseco Feb 28, 2017 12:19
--- NOTE | 2017-02-28 12:22 | HHI.GIFU ---
Subjective Remarks Feeling better today and less distended and less pain ABs dcd.....VSS wants to go home Objective Vitals I&O Vital Signs Date Time Temp Pulse Resp B/P (MAP) Pulse Ox O2 Delivery O2 Flow Rate FiO2 02/28/17 08:00 97.5 83 18 90/59 (69) 97 02/28/17 04:00 97.8 77 18 104/66 (79) 100 02/28/17 00:00 98.4 65 20 114/70 (85) 100 02/27/17 20:14 87 02/27/17 20:00 98.5 84 17 106/59 (75) 95 02/27/17 20:00 Room Air 02/27/17 16:00 98.3 86 18 96/56 (69) 97 I/O 02/27/17 02/27/17 02/27/17 02/28/17 02/28/17 02/28/17 07:00 15:00 23:00 07:00 15:00 23:00 Intake Total 240 ml 200 ml 720 ml 480 ml Output Total 500 ml 700 ml 900 ml Balance -260 ml 200 ml 20 ml -420 ml Intake Oral 240 ml 720 ml 480 ml IV Total 200 ml Output Urine Total 500 ml 700 ml 900 ml # Bowel Movements 0 0 Laboratory Laboratory Tests Test 02/23/17 23:15 02/24/17 06:20 02/24/17 06:45 02/24/17 15:15 Activated Partial Thromboplast Time 45.1 SEC Blood Urea Nitrogen 7 MG/DL Creatinine 1.29 MG/DL Random Glucose 118 MG/DL Total Protein 8.4 GM/DL Albumin 1.9 GM/DL Calcium Level 8.1 MG/DL Magnesium Level 1.8 MG/DL Alkaline Phosphatase 226 U/L Aspartate Amino Transf (AST/SGOT) 330 U/L Alanine Aminotransferase (ALT/SGPT) 131 U/L Total Bilirubin 7.2 MG/DL Sodium Level 134 MEQ/L Potassium Level 3.3 MEQ/L Chloride Level 102 MEQ/L Carbon Dioxide Level 22.9 MEQ/L Total Creatine Kinase 164 U/L Creatine Kinase MB 1.8 NG/ML Troponin I LESS THAN 0.02 NG/ML B-Type Natriuretic Peptide 30 PG/ML Ethyl Alcohol Level LESS THAN 3 MG/DL Differential Total Cells Counted 100 Neutrophils % (Manual) 56 % Band Neutrophils % 4 % Lymphocytes % 26 % Monocytes % 13 % Eosinophils % 1 % Neutrophils # (Manual) 2.6 TH/MM3 Nucleated Red Blood Cells 1 /100 WBC Spherocytes 1+ Sickle Cells [place] PRESENT Lipase 259 U/L Urine Color DARK-YELLOW Urine Turbidity HAZY Urine pH 6.0 Urine Specific [place] GREATER THAN 1.050 Urine Protein TRACE mg/dL Urine Glucose (UA) NEG mg/dL Urine Ketones NEG mg/dL Urine Occult Blood MOD Urine Nitrite NEG Urine Bilirubin MOD Urine Urobilinogen 2.0 MG/DL Urine Leukocyte Esterase LARGE Urine RBC 11 /hpf Urine WBC 15 /hpf Urine Squamous Epithelial Cells 9 /hpf Urine Bacteria FEW /hpf Microscopic Urinalysis Comment CULTURE INDICATED Urine Opiates Screen POS Urine Barbiturates Screen NEG Urine Amphetamines Screen NEG Urine Benzodiazepines Screen NEG Urine Cocaine Screen NEG Urine Cannabinoids Screen NEG Peritoneal Fluid WBC 40 /MM3 Peritoneal Fluid RBC 441 /MM3 Peritoneal Fluid Neutrophils 12 % Peritoneal Fluid Lymphocytes 42 % Peritoneal Fluid Monocytes 30 % Peritoneal Fluid Mesothelial Cells 16 % Peritoneal Fluid Glucose 123 MG/DL Test 02/25/17 14:23 02/26/17 14:47 02/27/17 11:30 Blood Urea Nitrogen 9 MG/DL Creatinine 1.17 MG/DL Random Glucose 128 MG/DL Total Protein 7.1 GM/DL Albumin 2.1 GM/DL Calcium Level 9.0 MG/DL Alkaline Phosphatase 147 U/L Aspartate Amino Transf (AST/SGOT) 244 U/L Alanine Aminotransferase (ALT/SGPT) 97 U/L Total Bilirubin 7.6 MG/DL Sodium Level 135 MEQ/L Potassium Level 3.8 MEQ/L Chloride Level 103 MEQ/L Carbon Dioxide Level 27.6 MEQ/L Anion Gap 4 MEQ/L Estimat Glomerular Filtration Rate 58 ML/MIN White Blood Count 3.6 TH/MM3 Red Blood Count 1.96 MIL/MM3 Hemoglobin 8.5 GM/DL Hematocrit 24.1 % Mean Corpuscular Volume 123.3 FL Mean Corpuscular Hemoglobin 43.6 PG Mean Corpuscular Hemoglobin Concent 35.3 % Red Cell Distribution Width 20.1 % Platelet Count 61 TH/MM3 Mean Platelet Volume 8.0 FL Neutrophils (%) (Auto) 56.3 % Lymphocytes (%) (Auto) 23.1 % Monocytes (%) (Auto) 19.4 % Eosinophils (%) (Auto) 0.7 % Basophils (%) (Auto) 0.5 % Neutrophils # (Auto) 2.0 TH/MM3 Lymphocytes # (Auto) 0.8 TH/MM3 Monocytes # (Auto) 0.7 TH/MM3 Eosinophils # (Auto) 0.0 TH/MM3 Basophils # (Auto) 0.0 TH/MM3 CBC Comment AUTO DIFF Differential Comment AUTO DIFF CONFIRMED Platelet Estimate LOW Platelet Morphology Comment NORMAL Target Cells 2+ Erythrocyte Sedimentation Rate GREATER THAN 140 mm/hr C-Reactive Protein 2.70 MG/DL Reticulocyte Count 4.7 % Absolute Reticulocyte Count 89.7 MIL/L Prothrombin Time 25.4 SEC Prothromb Time International Ratio 2.2 RATIO Vitamin B12 Level GREATER THAN 2000 PG/ML Folate 10.1 NG/ML Date/Time Source Procedure Growth Status 02/27/17 11:34 Blood Peripheral Aerobic Blood Culture - Preliminary NO GROWTH IN 1 DAY Resulted 02/27/17 11:34 Blood Peripheral Anaerobic Blood Culture - Preliminary NO GROWTH IN 1 DAY Resulted 02/24/17 15:15 Fluid Peritoneal Fluid Gram Stain - Final Complete 02/24/17 15:15 Body Fluid Culture - Final Viridans Streptococcus Grp Corynebacterium Sp Complete 02/24/17 06:45 Urine Clean Catch Urine Culture - Final 50-100,000 CFU/ML MIXED GRAM POSITIVE... Complete Physical Exam CHEST: Chest is clear to auscultation and percussion. CARDIAC: Regular rate and rhythm with no murmur gallop or rubs. ABDOMEN Less distention noted minimal tenderness no rebound EXTREMITIES: No clubbing, cyanosis, or edema. SKIN: Normal; no rash; . Assessment and Plan Assessment: (1) Hepatitis C, chronic ICD Codes: B18.2 - Hepatitis C, chronic Status: Chronic (2) Coagulopathy ICD Codes: D68.9 - Coagulation defect, unspecified Status: Acute (3) Cirrhosis of liver with ascites ICD Codes: K74.60 - Cirrhosis of liver with ascites Status: Chronic (4) Abdominal pain ICD Codes: R10.9 - Abdominal pain Status: Resolved (5) Thrombocytopenia ICD Codes: D69.6 - Thrombocytopenia Status: Resolved (6) Alcoholic hepatitis with ascites ICD Codes: K70.11 - Alcoholic hepatitis with ascites Status: Acute Plan Would hold peritoneal cath for now and re assess tomorrow for decision of placement by IR will f/u tomorrow Problem Qualifiers (1) Cirrhosis of liver with ascites: Qualified Codes: K74.60 - Unspecified cirrhosis of liver (2) Abdominal pain: Qualified Codes: R10.84 - Generalized abdominal pain Eric Bowens MD Feb 28, 2017 12:22
--- NOTE | 2017-02-28 16:18 | HHI.PR ---
Subjective Remarks Patient resting in bed awake alert She reported mild abdominal discomfort possibly due to recurrent distention Initially according to GI note I placed an order for IR for peritoneal catheter to be placed tomorrow however later on I received a call from nurse notifying me that G I would like to assess patient tomorrow prior to placing the catheter Objective Vitals Vital Signs Date Time Temp Pulse Resp B/P (MAP) Pulse Ox O2 Delivery O2 Flow Rate FiO2 02/28/17 12:00 97.9 82 18 100/66 (77) 98 02/28/17 08:00 97.5 83 18 90/59 (69) 97 02/28/17 08:00 Room Air 02/28/17 04:00 97.8 77 18 104/66 (79) 100 02/28/17 00:00 98.4 65 20 114/70 (85) 100 02/27/17 20:14 87 02/27/17 20:00 98.5 84 17 106/59 (75) 95 02/27/17 20:00 Room Air I/O 02/27/17 02/27/17 02/27/17 02/28/17 02/28/17 02/28/17 07:00 15:00 23:00 07:00 15:00 23:00 Intake Total 240 ml 200 ml 720 ml 480 ml Output Total 500 ml 700 ml 900 ml Balance -260 ml 200 ml 20 ml -420 ml Intake Oral 240 ml 720 ml 480 ml IV Total 200 ml Output Urine Total 500 ml 700 ml 900 ml # Bowel Movements 0 0 Result Diagram: 02/26/17 1447 02/25/17 1423 Objective Remarks - GENERAL: This is a well-nourished, well-developed patient, in no apparent distress. SKIN: No rashes, warm and dry HEAD: Atraumatic. Normocephalic. EYES: Pupils equal round and reactive. Extraocular motions intact positive s cleral icterus. ENT: Nose without bleeding, or drainage, Airway patent. NECK: Trachea midline. Supple CARDIOVASCULAR: Regular rate and rhythm without murmurs, gallops, or rubs. RESPIRATORY: Fair air entry bilaterally. No wheezes, rales, or rhonchi. GASTROINTESTINAL: Abdomen soft, minimal tenderness to palpation with distention. Positive bowel sounds MUSCULOSKELETAL: Extremities without clubbing, cyanosis, or edema. Pedal pulses appreciated NEUROLOGICAL: Awake and alert. Moves all extremity. Normal speech.no focal neurological deficit A/P Problem List: (1) Cirrhosis of liver with ascites ICD Code: K74.60 - Cirrhosis of liver with ascites Status: Chronic (2) Abdominal pain ICD Code: R10.9 - Unspecified abdominal pain (3) Coagulopathy ICD Code: D68.9 - Coagulation defect, unspecified Status: Acute Assessment and Plan 56 y/o female with liver cirrhosis and severe abdominal pain: Abdominal pain symptomatic ascites vs symptomatic cholelithiasis vs SBP vs CBD stone - sees Dr. David Sarah with [facility] as an outpatient -they were consulted appreciated their input, if the ascites recur the recommended peritoneal catheter - Morphine 2 mg IVP q3h PRN -Recurrent distention with significant tenderness in the abdomen, with positive strep virridan and Corynebacterium intraperitoneal fluid, increased ESR CRP, suspicious SBP peritoneal neutrophils count is only 25, appreciate ID consultation no antibiotic at this time, follow temperature and clinically, watch out for SBP Initially according to GI note I placed an order for IR for peritoneal catheter to be placed tomorrow however later on I received a call from nurse notifying me that G I would like to assess patient tomorrow prior to placing the catheter Check INR today and stop vitamin K if needed Cirrhosis with ascites and pancytopenia - Discussed paracentesis - monitor I and Os Per GI if ascites recur patient will need peritoneal catheter drain are Coagulopathy secondary to chronic liver cirrhosis - patient has been placed on daily vitamin K and was given FFP at admission, follow INR Acute renal insufficiency likely secondary to diuretic use, dehydration, third- spacing Monitor lab, avoid nephrotoxin, monitor urine output Creatinine trending down 1.7 on 02/26 DVT prophylaxis - SCDs/TEDs (verbal order) Problem Qualifiers (1) Cirrhosis of liver with ascites: Qualified Codes: K74.60 - Unspecified cirrhosis of liver Carlos Segura MD Feb 28, 2017 16:18
[2017-02-28 19:31] LABS: INTERNATIONAL NORMALIZED RATIO 2.3 RATIO; PROTHROMBIN TIME - PATIENT 26.3 SEC (9.8-11.6)
[2017-02-28] MEDS: MORPHINE SULFATE 2 MG/ML INJ IV PUSH PRN (20:10)
[2017-03-01] VITALS: BP 105/58; PULSE 81; RESP 16; TEMP 97.7; O2SAT 96
[2017-03-01 04:00] VITALS: BP 94/50; PULSE 81; RESP 16; TEMP 98.7; O2SAT 96
[2017-03-01 07:31] LABS: INTERNATIONAL NORMALIZED RATIO 2.3 RATIO; PROTHROMBIN TIME - PATIENT 26.1 SEC (9.8-11.6)
[2017-03-01 08:22] VITALS: BP 109/58; PULSE 75; RESP 17; TEMP 98; O2SAT 97
[2017-03-01] MEDS: SPIRONOLACTONE 100 MG TAB PO SCH (09:37)
[2017-03-01] MEDS: SODIUM CHLORIDE 0.9% FLUSH 10 ML FLUSH IV FLUSH SCH (09:37)
[2017-03-01] MEDS: PANTOPRAZOLE SOD 40 MG DELAYED RELEASE TAB PO SCH (09:38)
[2017-03-01] MEDS: RIFAXIMIN 550 MG TAB PO SCH (09:38)
[2017-03-01] MEDS: POTASSIUM CHLORIDE 10 MEQ CONTROLLED RELEASE TAB PO SCH (09:38)
[2017-03-01] MEDS: FUROSEMIDE 40 MG TAB PO SCH (09:38)
--- NOTE | 2017-03-01 10:46 | HHI.IDPN ---
Subjective Subjective Remarks Patient is a 56-year-old female, with known history of cirrhosis, aided to her history of alcohol abuse, also has a history of hepatitis C, has had problem with recurrent ascites. She has had different procedures done for drainage of her recurrent ascites. She came in this time for further evaluation and treatment of recurrent abdominal distention as well as discomfort causing some difficulty in her breathing. She has not had any fever or chills or sweats. Patient has had problem with underlying pancytopenia which is most likely due to her known liver disease, alcohol abuse and likely bone marrow suppression. On this admission, she underwent paracenteses, and IR took out 6.3 L of fluid. Fluid analysis is fairly unremarkable with no evidence of peritonitis. However the culture now is reported as growing rare strep and corynebacterium. Patient is complaining of abdominal discomfort related to increasing distention , and fluid accumulation. She has not had any fever. Infectious disease consultation has been requested to evaluate the patient. Notes reviewed Temps ok Abdominal pain is better Antibiotics No Antibiotics Current Medications Medications (Trade) Dose Ordered Sig/Aleisha Route Start Time Stop Time Status Last Admin (NS Flush) 2 ml UNSCH PRN IV FLUSH 02/24/17 02:00 02/26/17 08:37 (NS Flush) 2 ml BID IV FLUSH 02/24/17 09:00 03/01/17 09:37 (Narcan Inj) 0.4 mg UNSCH PRN IV PUSH 02/24/17 02:00 (Morphine Inj) 2 mg Q3H PRN IV PUSH 02/24/17 05:30 02/28/17 20:10 (Lactulose Liq) 15 ml Q6H PRN PO 02/24/17 05:45 03/01/17 09:41 (Protonix) 40 mg DAILY PO 02/24/17 09:00 03/01/17 09:38 (KCl) 10 meq DAILY PO 02/24/17 09:00 03/01/17 09:38 (Xifaxan) 550 mg Q12HR PO 02/24/17 09:00 03/01/17 09:38 (Aldactone) 100 mg BIDPC PO 02/24/17 09:00 03/01/17 09:37 (Lasix) 40 mg BID PO 02/25/17 21:00 03/01/17 09:38 Lines PIV Past Medical History Hypertension Alcoholic Cirrhosis Hepatitis C CVA - left sided residual Esophageal stricture Past Surgical History Multiple paracentesis EGD with esophageal dilatation Allergies: Coded Allergies: No Known Allergies (Verified , 02/23/17) Objective . Vital Signs Date Time Temp Pulse Resp B/P (MAP) Pulse Ox O2 Delivery O2 Flow Rate FiO2 03/01/17 08:22 98.0 75 17 109/58 (75) 97 03/01/17 04:00 98.7 81 16 94/50 (65) 96 03/01/17 00:00 97.7 81 16 105/58 (74) 96 02/28/17 20:02 Room Air 02/28/17 20:00 97.4 78 18 92/57 (69) 93 02/28/17 19:55 76 02/28/17 16:00 97.8 80 18 94/54 (67) 98 02/28/17 12:00 97.9 82 18 100/66 (77) 98 . Laboratory Tests Test 02/27/17 11:30 Reticulocyte Count 4.7 % Absolute Reticulocyte Count 89.7 MIL/L Laboratory Tests Test 02/27/17 11:30 02/28/17 18:44 Vitamin B12 Level GREATER THAN 2000 PG/ML Folate 10.1 NG/ML Lactate Dehydrogenase 270 U/L Total Protein 8.0 GM/DL Microbiology Date/Time Source Procedure Growth Status 02/27/17 11:34 Blood Peripheral Aerobic Blood Culture - Preliminary NO GROWTH IN 1 DAY Resulted 02/27/17 11:34 Blood Peripheral Anaerobic Blood Culture - Preliminary NO GROWTH IN 1 DAY Resulted 02/27/17 11:30 Blood Peripheral Aerobic Blood Culture - Preliminary NO GROWTH IN 1 DAY Resulted 02/27/17 11:30 Blood Peripheral Anaerobic Blood Culture - Preliminary NO GROWTH IN 1 DAY Resulted Imaging Last Impressions Gall Bladder Ultrasound 02/24/17 0147 Signed Impressions: Service Date/Time: Friday, February 24, 2017 02:32 - CONCLUSION: 1. Cholelithiasis as above. Common duct dilatation without evidence of stone. MRCP could be performed for further evaluation if clinically indicated. Braydon Hoover MD Cyst Biopsy Asp-Paracentesis US 02/24/17 0000 Signed Impressions: Service Date/Time: Friday, February 24, 2017 14:49 - CONCLUSION: Uncomplicated ultrasound guided paracentesis. Urbano Nguyen MD Cholangiopancreatography MRI 02/24/17 0000 Signed Impressions: Service Date/Time: Friday, February 24, 2017 18:01 - CONCLUSION: Findings consistent with cirrhosis of the liver with ascites and the gallbladder has a thickened wall with stones within this. Common bile duct measures 8 mm in width and is anatomically normal with no evidence of retained stones or stricture formation with pancreatic head appearing normal. Raj Lujan MD Chest X-Ray 02/23/172226 Signed Impressions: Service Date/Time: Thursday, February 23, 2017 22:38 - CONCLUSION: No acute cardiopulmonary disease. Nestor Thomas MD Abdomen/Pelvis CT 02/23/172226 Signed Impressions: Service Date/Time: Thursday, February 23, 2017 22:47 - CONCLUSION: 1. Cirrhosis. 2. Severe ascites 3. Cholelithiasis Braydon Hoover MD Physical Exam GENERAL: awake and alert, not in respiratory distress. SKIN: Warm and dry. No generalized rash, no ecchymoses and no evidence of embolic lesions. HEAD: Atraumatic. Normocephalic. No temporal wasting, or tenderness. EYES: [place] conjunctiva. No petechia or hemorrhage. Pupils equal, round and reactive to light. Extraocular movements full and intact. No scleral icterus. No injection or drainage. EARS, NOSE AND THROAT: Nose without bleeding or purulent nasal discharge. No sinus tenderness. Mucous membranes pink and moist. No oral lesions noted. No exudate. No oral thrush. NECK: Trachea midline. Supple and not tender, no meningeal signs CARDIOVASCULAR: Regular rate and rhythm. No murmurs, rubs or gallops heard RESPIRATORY: Clear to auscultation. Breath sounds equal bilaterally. No rales , wheezing or rhonchi. Decreased BS at the bases. ABDOMEN: Distended abdomen, same as before, min tenderness, no guarding, no rebound, no peritoneal signs. Bowel sounds present and normoactive. Has reducible midline ventral hernia. (+) fluid wave EXTREMITIES: No clubbing, cyanosis, or edema. No joint effusion, has good ROM. No calf tenderness. Well perfused and warm. NEUROLOGICAL: Non-focal. PSYCHIATRIC: Normal affect, calm and cooperative. LINE: No evidence of infection Assessment & Plan Remarks IMPRESSION Recurrent ascites in patient with known ETOH liver disease - fluid analysis does not look infected - rare bacteria on C/S c/w contamination - clinically no evidence of peritonitis - she is however at risk for SBP ETOH liver disease Pancytopenia due to liver disease, hypersplenism and likely BM suppression from ETOH use Renal insufficiency RECOMMENDATION GI following patient - they are looking at procedure to manage the rapid reaccumulation of her ascites Clinically looks stable from ID standpoint I will sign off Please call if with any new ID issue or question Mare Sanderson MD Mar 01, 2017 10:46
--- NOTE | 2017-03-01 11:31 | HHI.GIFU ---
Subjective Remarks alert nad abdomen about the same no complaints afebrile Objective Vitals I&O Vital Signs Date Time Temp Pulse Resp B/P (MAP) Pulse Ox O2 Delivery O2 Flow Rate FiO2 03/01/17 08:22 98.0 75 17 109/58 (75) 97 03/01/17 04:00 98.7 81 16 94/50 (65) 96 03/01/17 00:00 97.7 81 16 105/58 (74) 96 02/28/17 20:02 Room Air 02/28/17 20:00 97.4 78 18 92/57 (69) 93 02/28/17 19:55 76 02/28/17 16:00 97.8 80 18 94/54 (67) 98 02/28/17 12:00 97.9 82 18 100/66 (77) 98 I/O 02/28/17 02/28/17 02/28/17 03/01/17 03/01/17 03/01/17 07:00 15:00 23:00 07:00 15:00 23:00 Intake Total 480 ml 1040 ml Output Total 900 ml Balance -420 ml 1040 ml Intake Oral 480 ml 1040 ml Output Urine Total 900 ml # Voids 10 # Bowel Movements 1 Laboratory Laboratory Tests Test 02/28/17 18:44 03/01/17 06:10 Prothrombin Time 26.3 26.1 Prothromb Time International Ratio 2.3 2.3 Lactate Dehydrogenase 270 Total Protein 8.0 Date/Time Source Procedure Growth Status 02/27/17 11:34 Blood Peripheral Aerobic Blood Culture - Preliminary NO GROWTH IN 2 DAYS Resulted 02/27/17 11:34 Blood Peripheral Anaerobic Blood Culture - Preliminary NO GROWTH IN 2 DAYS Resulted 02/24/17 15:15 Fluid Peritoneal Fluid Gram Stain - Final Complete 02/24/17 15:15 Body Fluid Culture - Final Viridans Streptococcus Grp Corynebacterium Sp Complete 02/24/17 06:45 Urine Clean Catch Urine Culture - Final 50-100,000 CFU/ML MIXED GRAM POSITIVE... Complete Physical Exam CHEST: Chest is clear to auscultation and percussion. CARDIAC: Regular rate and rhythm with no murmur gallop or rubs. ABDOMEN moderate distention noted minimal tenderness no rebound EXTREMITIES: No clubbing, cyanosis, or edema. Assessment and Plan Assessment: (1) Hepatitis C, chronic ICD Codes: B18.2 - Hepatitis C, chronic Status: Chronic (2) Coagulopathy ICD Codes: D68.9 - Coagulation defect, unspecified Status: Acute (3) Cirrhosis of liver with ascites ICD Codes: K74.60 - Cirrhosis of liver with ascites Status: Chronic (4) Abdominal pain ICD Codes: R10.9 - Abdominal pain Status: Resolved (5) Thrombocytopenia ICD Codes: D69.6 - Thrombocytopenia Status: Resolved (6) Alcoholic hepatitis with ascites ICD Codes: K70.11 - Alcoholic hepatitis with ascites Status: Acute Plan Appears stable for d/c continue lasix 40 mg bid along w aldactone 50 mg tid ... f/u Dr Sarah outpt and if pt reaccumulates fluid again sooner.. then Peritoneal cath will be a needed option..... discussed w pt. F/u [facility] after d/c aswell Problem Qualifiers (1) Cirrhosis of liver with ascites: Qualified Codes: K74.60 - Unspecified cirrhosis of liver (2) Abdominal pain: Qualified Codes: R10.84 - Generalized abdominal pain Eric Bowens MD Mar 01, 2017 11:31
[2017-03-01 12:08] VITALS: BP 113/62; PULSE 80; RESP 18; TEMP 97.9; O2SAT 93
--- NOTE | 2017-03-01 12:34 | HHI.DS ---
Discharge Summary Admission Date Feb 24, 2017 at 00:57 Discharge Date: Mar 01, 2017 Admitting Diagnosis Severe ascites, r/o SBP (1) Cirrhosis of liver with ascites ICD Code: K74.60 - Cirrhosis of liver with ascites Status: Chronic (2) Abdominal pain ICD Code: R10.9 - Unspecified abdominal pain (3) Coagulopathy ICD Code: D68.9 - Coagulation defect, unspecified Status: Acute Procedures Paracentesis Brief History - From Admission The patient is seen in the CDU. She states that she developed severe right-sided abdominal pain with significant distention accompanied by shortness of breath. No measured fevers though felt warm Denies nausea or vomiting. Had one episode of black stool on Wednesday. Denies hematuria. The patient reports mid-epigastric pain. Symptoms present for about one week. Some chest tightness reported. Reports some peripheral edema but was not as bad as February 13 which was the last time she had a paracentesis Denies syncope but reports fatigue CBC/BMP: 02/26/17 1447 02/25/17 1423 Significant Findings Laboratory Tests Test 02/26/17 14:47 02/27/17 11:30 02/28/17 18:44 03/01/17 06:10 White Blood Count 3.6 TH/MM3 (4.0-11.0) Red Blood Count 1.96 MIL/MM3 (4.00-5.30) Hemoglobin 8.5 GM/DL (11.6-15.3) Hematocrit 24.1 % (35.0-46.0) Mean Corpuscular Volume 123.3 FL (80.0-100.0) Mean Corpuscular Hemoglobin 43.6 PG (27.0-34.0) Red Cell Distribution Width 20.1 % (11.6-17.2) Platelet Count 61 TH/MM3 (150-450) Monocytes (%) (Auto) 19.4 % (0.0-8.0) Lymphocytes # (Auto) 0.8 TH/MM3 (1.0-4.8) Platelet Estimate LOW (NORMAL) Target Cells 2+ (NORMAL) Erythrocyte Sedimentation Rate GREATER THAN 140 mm/hr C-Reactive Protein 2.70 MG/DL (0.00-0.30) Reticulocyte Count 4.7 % (0.4-3.0) Prothrombin Time 25.4 SEC (9.8-11.6) 26.3 SEC (9.8-11.6) 26.1 SEC (9.8-11.6) Vitamin B12 Level GREATER THAN 2000 PG/ML Lactate Dehydrogenase 270 U/L (84-246) PE at Discharge - GENERAL: This is a well-nourished, well-developed patient, in no apparent distress. SKIN: No rashes, warm and dry HEAD: Atraumatic. Normocephalic. EYES: Pupils equal round and reactive. Extraocular motions intact positive s cleral icterus. ENT: Nose without bleeding, or drainage, Airway patent. NECK: Trachea midline. Supple CARDIOVASCULAR: Regular rate and rhythm without murmurs, gallops, or rubs. RESPIRATORY: Fair air entry bilaterally. No wheezes, rales, or rhonchi. GASTROINTESTINAL: Abdomen soft, minimal tenderness to palpation with distention. Positive bowel sounds MUSCULOSKELETAL: Extremities without clubbing, cyanosis, or edema. Pedal pulses appreciated NEUROLOGICAL: Awake and alert. Moves all extremity. Normal speech.no focal neurological deficit Hospital Course 56 years old female admitted for abdominal pain bacteremia liver cirrhosis, acute kidney injury dehydration third spacing, GI consulted as well as ID, she had paracentesis fluid sent for analysis no signs of peritonitis or SBP, GI recommended following up patient for possible need for peritoneal catheter. ID and GI cleared patient for discharge. PT recommended home health care PT with wheeled walker which was placed [id number] encounter performed with the patient on discharge day, as well as physical exam, summary of hospitalization course and postdischarge plan has been D/W the patient. D/W nurse D/W correctional case manager. Discharge medications reviewed and printed and signed, post discharge follow up visit with PCP and other specialist as well as Brief hospital course and discharge summary has been placed. Pt Condition on Discharge: Fair Discharge Disposition: Disch w/ Home Health Serv Discharge Time: > 30 minutes Discharge Instructions DIET: Follow Instructions for: Heart Healthy Diet Activities you can perform: Weight Bearing as Gema Continued Medications: Furosemide (Furosemide) 40 Mg Tab 40 MG PO DAILY, #30 TAB 0 Refills Lactulose Liq (Lactulose Liq) 10 Gm/15 Ml Soln 15 ML PO Q6H PRN for CONSTIPATION, ML 0 Refills Pantoprazole (Protonix) 40 Mg Tab 40 MG PO DAILY for Reflux, #30 TAB 0 Refills Potassium Chloride ER (Klor-Con 10) 10 Meq Tab 10 MEQ PO DAILY for Electrolyte Replacement, #30 TAB 0 Refills Rifaximin (Xifaxan) 550 Mg Tab 550 MG PO Q12HR for Hepatic encephalopathy, #60 TAB 0 Refills Spironolactone (Spironolactone) 100 Mg Tab 100 MG PO BIDPC, #60 TAB 0 Refills Carlos Segura MD Mar 01, 2017 12:34
== END 2017-03-01 14:00 | disposition home health service (06) | DRG 433 ==
LOC: NEPE 21:37 → NEDA 02-24 00:57 → NEPFCDU 02-24 02:55 → N04A 02-25 16:05
PROVIDERS: ADMIT Hospitalist; ATTEND Hospitalist
PROC: 0W9G30Z Drainage of Peritoneal Cavity with Drainage Device, Percutaneous Approach (ICD-10-PCS; principal; 2017-02-24)
PROC: 30253K1 (ICD-10-PCS; 2017-02-24)
DX: K70.11 Alcoholic hepatitis with ascites (principal); D68.9 Coagulation defect, unspecified; K70.31 Alcoholic cirrhosis of liver with ascites; D61.818 Other pancytopenia; N17.9 Acute kidney failure, unspecified; E86.0 Dehydration; B18.2 Chronic viral hepatitis C; D73.1 Hypersplenism; I10 Essential (primary) hypertension; K21.9 Gastro-esophageal reflux disease without esophagitis; F17.290 Nicotine dependence, other tobacco product, uncomplicated; K80.20 Calculus of gallbladder without cholecystitis without obstruction; T50.2X5A Adverse effect of carbonic-anhydrase inhibitors, benzothiadiazides and other diuretics, initial encounter; Z86.73 Personal history of transient ischemic attack (TIA), and cerebral infarction without residual deficits; Z91.14 Patient's other noncompliance with medication regimen; H40.9 Unspecified glaucoma
CPT/HCPCS: 36430; 49083; 71010; 74177; 74181; 76377; 76705; 80053; 80307; 81001; 82550; 82552; 82607; 82746; 82945; 83615; 83690; 83735; 83880; 84155; 84484; 85007; 85025; 85027; 85044; 85610; 85652; 85730; 86140; 86927; 87040; 87070; 87086; 87205; 89051; 93005; 96374; 96375; C1729; J0692; J2270; J2405; J2543; J3430; P9017; P9047; Q9967

== ENCOUNTER 2017-03-08 19:32 | Inpatient (IN) | payer OTHER ==
[~2017-03-08] VITALS: Ht 157.5 cm; Wt 71.5 kg
[~2017-03-08 19:32] MED LIST changes: +XIFA550T4 PO
[2017-03-08 19:40] VITALS: BP 134/77; PULSE 82; RESP 24; TEMP 98; O2SAT 100
[2017-03-08 19:48] VITALS: O2SAT 100
--- NOTE | 2017-03-08 20:07 | PD ---
HPI Chief Complaint: Abdominal Pain Time Seen by Provider: 19:43 Travel History International Travel<30 days: No Contact w/Intl Traveler<30days: No Traveled to known affect area: No History of Present Illness HPI The patient is a 56 year old female who presents to the [facility] emergency department with a history of liver cirrhosis with associated severe ascites who presents with recurrent abdominal distention and shortness of breath related to not being able to take a deep breath. The patient was admitted to the hospital on February 24 through March 01 related to similar symptoms. She is unsure who her engineer byproduct is. She reports that her primary care physician is Dr. Gauthier. The patient reports that she did undergo paracentesis. She was discharged from the hospital this past week. She has not scheduled a follow-up appointment at this point. She reports that on Wednesday her abdominal ascites began to recur. She reports that she was not able to sleep last night related to difficulty finding a comfortable position with her abdominal distention. She reports having a tightening sensation in the abdomen related to be ascites. She otherwise denies having any nausea, vomiting , or diarrhea. The patient denies drinking any alcohol. During her last hospitalization, her peritoneal fluid was cultured and did not grow out any bacteria. Otherwise on review of systems, the patient denies any known recent fevers,cough, congestion, neck pain, chest pain, urinary symptoms, or neurologic symptoms. 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 Arthritis: Yes Asthma: No Blood Disorders: No Anxiety: No Depression: No Heart Rhythm Problems: No Cancer: No Cardiovascular Problems: Yes (htn) Chemotherapy: No Chest Pain: No Congestive Heart Failure: No Cirrhosis: Yes COPD: No Cerebrovascular Accident: Yes Diabetes: No Diminished Hearing: No Endocrine: No Gastrointestinal Disorders: Yes (ASCITES) Glaucoma: Yes Genitourinary: No Headaches: Yes Hepatitis: Yes (HEP C) Hypertension: Yes (NON COMPLIANT WITh BP MEDS) Immune Disorder: Yes (HEP C) Implanted Vascular Access Dvce: No Musculoskeletal: Yes Neurologic: Yes Psychiatric: No ( ) Reproductive: No Respiratory: No Immunizations Current: No Radiation Therapy: No Sleep Apnea: No Thyroid Disease: No ?: Not Menopausal: Yes : 1 Para: 1 Past Surgical History Narrative Surgical The patient's past surgical history is significant for recurrent paracentesis, endoscopy with esophageal dilatation. Abdominal Surgery: Yes (paracentesis q6 months last one 02/25/17, lap. incarcerated hernia repair) Other Surgery: No Social History Alcohol Use: No Tobacco Use: Yes (2 CIGARS A DAY ) Substance Use: No Allergies-Medications (Allergen,Severity, Reaction): Coded Allergies: No Known Allergies (Verified , 02/23/17) Reported Meds & Prescriptions Reported Meds & Active Scripts Active Reported Xifaxan (Rifaximin) 550 Mg Tab 550 Mg PO Q12HR Lactulose Liq (Lactulose) 10 Gm/15 Ml Soln 15 Ml PO Q6H PRN Klor-Con 10 (Potassium Chloride) 10 Meq Tab 10 Meq PO DAILY Spironolactone 100 Mg Tab 100 Mg PO BIDPC Furosemide 40 Mg Tab 40 Mg PO DAILY Protonix (Pantoprazole Sodium) 40 Mg Tab 40 Mg PO DAILY Review of Systems Except as stated in HPI: all other systems reviewed are Neg General / Constitutional: No: Fever Eyes: No: Visual changes HENT: No: Headaches, Rhinorrhea, Congestion Cardiovascular: No: Chest Pain or Discomfort Respiratory: Positive: Shortness of Breath, No: Cough Gastrointestinal: Positive: Abdominal Pain, No: Nausea, Vomiting, Diarrhea, Changes in Bowel Habits, Indigestion, Loss of Appetite Genitourinary: No: Dysuria Musculoskeletal: No: Pain Skin: No Rash Neurologic: Positive: Weakness (generalized weakness), No: Focal Abnormalities , Change in Mentation, Slurred Speech, Sensory Disturbance Psychiatric: No: Depression Endocrine: No: Polydipsia Hematologic/Lymphatic: No: Easy Bruising Physical Exam Narrative General: The patient is a well-developed well-nourished female in no acute distress. Head and Neck exam: Head is normocephalic atraumatic. Eyes: EOMI, pupils are equal round and reactive to light. Nose: Midline septum with pink mucous membranes Mouth: Dentition unremarkable. Moist mucus membranes. Posterior oropharynx is not erythematous. No tonsillar hypertrophy. Uvula midline. Airway patent. Neck: No palpable lymphadenopathy. No nuchal rigidity. No thyromegaly. Cardiovascular: Regular rate and rhythm without murmurs, gallops, or rubs. Lungs: Clear to auscultation bilaterally. No wheezes, rhonchi, or rales. Abdomen: Soft with abdominal distention, and umbilical hernia palpated in reducible, positive fluid wave consistent with ascites, no point tenderness on palpation of all 4 quadrants of the abdomen. No guarding, rebound, or rigidity. Normal bowel sounds are audible. No tenderness on palpation of McBurney's point. Extremities: No clubbing or cyanosis. The patient has trace pedal edema bilateral lower extremities. 2+ pulses in all 4 extremities. No calf tenderness on palpation. Back: No costovertebral angle tenderness to palpation. Neurologic Exam: Grossly nonfocal. The patient has no asterixis or tremulousness noted. Skin Exam: No rash noted. Intact skin that is warm and dry. Data Data Last Documented VS Vital Signs Date Time Temp Pulse Resp B/P (MAP) Pulse Ox O2 Delivery O2 Flow Rate FiO2 03/08/17 19:48 100 Nasal Cannula 2.00 03/08/17 19:40 98.0 82 24 134/77 (96) Orders Orders Complete Blood Count With Diff (03/08/17 19:43) Comprehensive Metabolic Panel (03/08/17 19:43) Prothrombin Time / Inr (Pt) (03/08/17 19:43) Act Partial Throm Time (Ptt) (03/08/17 19:43) C-Reactive Protein (Crp) (03/08/17 19:43) Lipase (03/08/17 19:43) Chest, Single Ap (03/08/17 19:43) Iv Access Insert/Monitor (03/08/17 19:43) Ecg Monitoring (03/08/17 19:43) Oximetry (03/08/17 19:43) Admit Order (Ed Use Only) (03/08/17 21:44) Labs Laboratory Tests Test 03/08/17 19:45 White Blood Count 4.4 TH/MM3 Red Blood Count 1.91 MIL/MM3 Hemoglobin 8.4 GM/DL Hematocrit 24.3 % Mean Corpuscular Volume 127.0 FL Mean Corpuscular Hemoglobin 44.1 PG Mean Corpuscular Hemoglobin Concent 34.7 % Red Cell Distribution Width 19.0 % Platelet Count 59 TH/MM3 Mean Platelet Volume 8.4 FL Neutrophils (%) (Auto) 62.0 % Lymphocytes (%) (Auto) 17.2 % Monocytes (%) (Auto) 19.9 % Eosinophils (%) (Auto) 0.5 % Basophils (%) (Auto) 0.4 % Neutrophils # (Auto) 2.7 TH/MM3 Lymphocytes # (Auto) 0.8 TH/MM3 Monocytes # (Auto) 0.9 TH/MM3 Eosinophils # (Auto) 0.0 TH/MM3 Basophils # (Auto) 0.0 TH/MM3 CBC Comment AUTO DIFF Differential Comment AUTO DIFF CONFIRMED Platelet Estimate LOW Platelet Morphology Comment NORMAL Target Cells 1+ Prothrombin Time 30.0 SEC Prothromb Time International Ratio 2.6 RATIO Activated Partial Thromboplast Time 52.6 SEC Blood Urea Nitrogen 7 MG/DL Creatinine 1.14 MG/DL Random Glucose 137 MG/DL Total Protein 8.5 GM/DL Albumin 2.1 GM/DL Calcium Level 8.3 MG/DL Alkaline Phosphatase 196 U/L Aspartate Amino Transf (AST/SGOT) 240 U/L Alanine Aminotransferase (ALT/SGPT) 126 U/L Total Bilirubin 9.2 MG/DL Sodium Level 127 MEQ/L Potassium Level 3.0 MEQ/L Chloride Level 98 MEQ/L Carbon Dioxide Level 19.8 MEQ/L Anion Gap 9 MEQ/L Estimat Glomerular Filtration Rate 59 ML/MIN Magnesium Level 1.9 MG/DL C-Reactive Protein 1.60 MG/DL Lipase 389 U/L MDM Medical Decision Making Medical Screen Exam Complete: Yes Emergency Medical Condition: Yes Medical Record Reviewed: Yes Interpretation(s) Last Impressions Chest X-Ray 03/08/171942 Signed Impressions: Service Date/Time: Wednesday, March 08, 2017 19:46 - CONCLUSION: No acute disease. Gildardo Pace MD Differential Diagnosis Recurrent ascites, versus pancreatitis, versus pneumonia, versus pulmonary edema , versus pleural effusion Narrative Course During the course of the patients emergency department visit, the patients history, examination, and differential diagnosis were reviewed with the patient. The patient was placed on a court monitor with oximetry and frequent blood pressure monitoring. The patient had IV access obtained and blood work sent for analysis. The patient's electronic medical record was reviewed. The patient last had paracentesis where 6.3 L of fluid was removed by ultrasound guided technique by interventional radiology on 02/24/2017. The patient had a consultation with the engineer byproduct. He recommended continued follow-up as an outpatient with gastroenterology. He recommended consideration of placement of a peritoneal drain due to recurrent ascites. The patient is unsure how to go about getting this done. The patient was discharged home with what appears to be home health and physical therapy. The patient appeared to be discharged home on her usual medications. The patients laboratory studies were reviewed and remarkable for a white count of 4.4, hemoglobin 8.4 which is stable compared to previously, platelets 59, monocytes 19.9. CMP is remarkable for sodium of 127, potassium 3.0 which was supplemented orally, CO2 19.8, creatinine 1.14, glucose 137, total bilirubin 9.2 , AST 240, ALT 126, alkaline phosphatase 196, C-reactive protein 1.6, albumin 2.1, lipase 389, magnesium is 1.9. PTT 30, INR 12.6, PTT 52.6. Radiology studies were reviewed and remarkable for a chest x-ray that shows no acute cardiopulmonary disease. Unfortunately the patient is noted to have multiple electrolyte derangements with a sodium that is now 127 down from 135, acidosis with a CO2 that went from 27.6 down to 19.8. The patient is hypokalemic with a potassium of 3.0 which will be supplemented orally. The patient reports that she has been having home health come out to her house, however she continues to have difficulty caring for herself. The patient's sisters arrived at the bedside and reports that they are willing to help. The patient will be admitted for observation, consideration of peritoneal drain placement by interventional radiology. The patient's sister that would like to be involved with the patient's care is named Pinky Dillard. Her phone number is [phone] The patients results were discussed with the patient, including the plan of care. I explained that further testing and/ or monitoring is indicated based on the patients history, examination, and/ or laboratory findings. Therefore, I recommended admission for additional evaluation. The patient expressed understanding and was agreeable with this plan. The patient was admitted to the hospital in stable condition and sent to a bed under the care of the [facility] service. Physician Communication Physician Communication The patient's case including history, pertinent physical examination findings, and laboratory studies were discussed with Dr. Leyva. It was agreed that the patient would be admitted to the [facility] service. Diagnosis Primary Impression: Cirrhosis of liver with ascites Qualified Codes: K74.60 - Unspecified cirrhosis of liver Additional Impressions: Hypokalemia Hyponatremia Admitting Information Admitting Physician Requests: Observation Ashleigh Longoria MD Mar 08, 2017 20:07
--- NOTE | 2017-03-08 20:13 | RADRPT ---
EXAM DATE/TIME: 03/08/2017 19:46 [place] COMPARISON: CHEST SINGLE AP, February 23, 2017, 22:38. INDICATIONS : Short of breath. MEDICAL HISTORY : Hypercholesterolemia. Cirrhosis. Hypertension. Glaucoma. SURGICAL HISTORY : None. ENCOUNTER: Initial ACUITY: 1 day PAIN SCORE: 0/10 LOCATION: Bilateral chest FINDINGS: A single view of the chest demonstrates the lungs to be symmetrically aerated without evidence of mas s, infiltrate or effusion. The cardiomediastinal contours are unremarkable. Osseous structures are intact. CONCLUSION: No acute disease. Gildardo Pace MD on March 08, 2017 at 20:10 Board Certified Radiologist. This report was verified electronically.
[2017-03-08 20:22] LABS: AUTOMATED NEUTROPHIL # 2.7 TH/MM3 (1.8-7.7); BASOPHIL % 0.4 % (0.0-2.0); EOSINOPHIL % 0.5 % (0.0-4.0); HEMATOCRIT 24.3 % (35.0-46.0); HEMOGLOBIN 8.4 GM/DL (11.6-15.3); LYMPH % 17.2 % (9.0-44.0); LYMPHOCYTE # 0.8 TH/MM3 (1.0-4.8); MEAN CORPUSCULAR HEMOGLOBIN 44.1 PG (27.0-34.0); MEAN CORPUSCULAR HGB CONC 34.7 % (32.0-36.0); MEAN PLATELET VOLUME 8.4 FL (7.0-11.0); MONO % 19.9 % (0.0-8.0); MONOCYTE # 0.9 TH/MM3 (0-0.9); PLATELET COUNT 59 TH/MM3 (150-450); RED BLOOD COUNT 1.91 MIL/MM3 (4.00-5.30); WHITE BLOOD COUNT 4.4 TH/MM3 (4.0-11.0)
[2017-03-08 20:34] LABS: ALBUMIN 2.1 GM/DL (3.4-5.0); ALT (GPT) 126 U/L (10-53); AST (GOT) 240 U/L (15-37); BICARBONATE 19.8 MEQ/L (21.0-32.0); CALCIUM 8.3 MG/DL (8.5-10.1); CHLORIDE 98 MEQ/L (98-107); CREATININE 1.14 MG/DL (0.50-1.00); GLOMERULAR FILTRATION RATE 59 ML/MIN (>89); GLUCOSE,RANDOM 137 MG/DL (74-106); LIPASE 389 U/L (73-393); SODIUM (NA) 127 MEQ/L (136-145)
[2017-03-08 20:36] LABS: ALKALINE PHOSPHATASE 196 U/L (45-117); TOTAL BILIRUBIN ADULT 9.2 MG/DL (0.2-1.0); TOTAL PROTEIN 8.5 GM/DL (6.4-8.2)
[2017-03-08 20:46] LABS: BLOOD UREA NITROGEN 7 MG/DL (7-18)
[2017-03-08 21:04] LABS: INTERNATIONAL NORMALIZED RATIO 2.6 RATIO
[2017-03-08 21:05] LABS: TARGET CELLS 1+ (NORMAL)
[2017-03-08] MEDS ORDERED: ALBUMIN 25% INJ 50 ML IV ONE (21:45)
[2017-03-08] MEDS ORDERED: POTASSIUM CHLORIDE 10 MEQ CONTROLLED RELEASE TAB PO ONE (21:45)
[2017-03-08] MEDS ORDERED: BISACODYL 10 MG SUPP RECTAL PRN (22:00)
[2017-03-08] MEDS ORDERED: SODIUM CHLORIDE 0.9% FLUSH 10 ML FLUSH IV FLUSH PRN (22:00)
[2017-03-08] MEDS ORDERED: ONDANSETRON HCL 4 MG/2 ML VIAL IVP PRN (22:00)
[2017-03-08] MEDS ORDERED: SENNOSIDES 8.6 MG TAB PO PRN (22:00)
[2017-03-08] MEDS ORDERED: MAGNESIUM HYDROXIDE SUSP 30 ML CUP PO PRN (22:00)
[2017-03-08] MEDS ORDERED: LACTULOSE SYRUP 20 GM/30 ML CUP PO PRN (22:00)
[2017-03-08] MEDS ORDERED: NALOXONE HCL 0.4 MG/ML AMP IV PUSH PRN (22:00)
[2017-03-08] MEDS ORDERED: ONDANSETRON HCL 4 MG/2 ML VIAL IV PUSH ONE (22:15)
[2017-03-08] MEDS ORDERED: MORPHINE SULFATE 2 MG/ML INJ IV PUSH ONE (22:15)
--- NOTE | 2017-03-08 22:29 | HHI.HP ---
HPI Service [facility] Primary Care Physician RIOS Cooney Admission Diagnosis Severe ascites with electrolyte derangements Diagnoses: Chief Complaint: abdominal pain Travel History International Travel<30 Days: No Contact w/Intl Traveler <30 Da: No Traveled to Known Affected Are: No History of Present Illness Written by EHSAN Degroot acting as scribe for Dr. Gutierrez] on 03/08/17 at 22:24. 56 y/o female with a history of liver cirrhosis, hep c, cva-left sided residual , and esophageal stricture presented to the ED with complaints of abdominal pain. She states her pain started yesterday and her abdomen started swelling. She states the pain in sharp, 10/10, and constant in her whole abdomen with no radiation and worse with movement and it keeps her from sleeping with associated chills, nausea, and weakness, and shortness of breath. She denies any chest pain or fevers. Last paracentesis was last Wednesday. Review of Systems Except as stated in HPI: all other systems reviewed are Neg Past Family Social History Past Medical History Hypertension Alcoholic Cirrhosis Hepatitis C CVA - left sided residual Esophageal stricture Past Surgical History Multiple paracentesis EGD with esophageal dilatation Reported Medications Reported Meds & Active Scripts Active Reported Xifaxan (Rifaximin) 550 Mg Tab 550 Mg PO Q12HR Lactulose Liq (Lactulose) 10 Gm/15 Ml Soln 15 Ml PO Q6H PRN Klor-Con 10 (Potassium Chloride) 10 Meq Tab 10 Meq PO DAILY Spironolactone 100 Mg Tab 100 Mg PO BIDPC Furosemide 40 Mg Tab 40 Mg PO DAILY Protonix (Pantoprazole Sodium) 40 Mg Tab 40 Mg PO DAILY Allergies: Coded Allergies: No Known Allergies (Verified , 02/23/17) Active Ordered Medications Current Medications Medications (Trade) Dose Ordered Sig/Aleisha Route Start Time Stop Time Status Last Admin (NS Flush) 2 ml UNSCH PRN IV FLUSH 03/08/17 22:00 03/08/17 22:23 (NS Flush) 2 ml BID IV FLUSH 03/09/17 09:00 (Zofran Inj) 4 mg Q6H PRN IVP 03/08/17 22:00 (Narcan Inj) 0.4 mg UNSCH PRN IV PUSH 03/08/17 22:00 (Milk Of Magnesia Liq) 30 ml Q12H PRN PO 03/08/17 22:00 (Senokot) 17.2 mg Q12H PRN PO 03/08/17 22:00 (Dulcolax Supp) 10 mg DAILY PRN RECTAL 03/08/17 22:00 (Lactulose Liq) 30 ml DAILY PRN PO 03/08/17 22:00 (Protonix) 40 mg DAILY PO 03/09/17 09:00 (KCl) 10 meq DAILY PO 03/09/17 09:00 (Xifaxan) 550 mg Q12HR PO 03/09/17 09:00 (Aldactone) 100 mg BIDPC PO 03/09/17 09:00 Family History Mom: Stomach CA Social History Tobacco use: Cigars 2-3 a day Alcohol use: Denies Illicit drug use: Denies Physical Exam Vital Signs Vital Signs Date Time Temp Pulse Resp B/P (MAP) Pulse Ox O2 Delivery O2 Flow Rate FiO2 03/08/17 19:48 100 Nasal Cannula 2.00 03/08/17 19:40 98.0 82 24 134/77 (96) 100 Physical Exam GENERAL: This is a well-nourished, well-developed patient, who appears in a lot of pain SKIN: No rashes, ecchymoses or lesions. Cool and dry. HEAD: Atraumatic. Normocephalic. No temporal or scalp tenderness. EYES: Pupils equal round and reactive. Extraocular motions intact. ENT: Nose without bleeding, purulent drainage or septal hematoma. Airway patent. NECK: Trachea midline. No JVD or lymphadenopathy. Supple, nontender, no meningeal signs. CARDIOVASCULAR: Regular rate and rhythm without murmurs, gallops, or rubs. RESPIRATORY: Clear to auscultation. Breath sounds equal bilaterally. No wheezes , rales, or rhonchi. GASTROINTESTINAL: Abdomen soft, severe tenderness, extremely distended. MUSCULOSKELETAL: +1 edema in bilateral lower extremities. No calf tenderness. Negative Homans sign bilaterally. NEUROLOGICAL: Awake and alert. Motor and sensory grossly within normal limits. Normal speech. Laboratory Laboratory Tests Test 03/08/17 19:45 White Blood Count 4.4 Red Blood Count 1.91 Hemoglobin 8.4 Hematocrit 24.3 Mean Corpuscular Volume 127.0 Mean Corpuscular Hemoglobin 44.1 Mean Corpuscular Hemoglobin Concent 34.7 Red Cell Distribution Width 19.0 Platelet Count 59 Mean Platelet Volume 8.4 Neutrophils (%) (Auto) 62.0 Lymphocytes (%) (Auto) 17.2 Monocytes (%) (Auto) 19.9 Eosinophils (%) (Auto) 0.5 Basophils (%) (Auto) 0.4 Neutrophils # (Auto) 2.7 Lymphocytes # (Auto) 0.8 Monocytes # (Auto) 0.9 Eosinophils # (Auto) 0.0 Basophils # (Auto) 0.0 CBC Comment AUTO DIFF Differential Comment AUTO DIFF CONFIRMED Platelet Estimate LOW Platelet Morphology Comment NORMAL Target Cells 1+ Prothrombin Time 30.0 Prothromb Time International Ratio 2.6 Activated Partial Thromboplast Time 52.6 Blood Urea Nitrogen 7 Creatinine 1.14 Random Glucose 137 Total Protein 8.5 Albumin 2.1 Calcium Level 8.3 Alkaline Phosphatase 196 Aspartate Amino Transf (AST/SGOT) 240 Alanine Aminotransferase (ALT/SGPT) 126 Total Bilirubin 9.2 Sodium Level 127 Potassium Level 3.0 Chloride Level 98 Carbon Dioxide Level 19.8 Anion Gap 9 Estimat Glomerular Filtration Rate 59 Magnesium Level 1.9 C-Reactive Protein 1.60 Lipase 389 Result Diagram: 03/08/17194403/08/171944 Imaging Last Impressions Chest X-Ray 03/08/171942 Signed Impressions: Service Date/Time: Wednesday, March 08, 2017 19:46 - CONCLUSION: No acute disease. MD Denys Pope VTE Risk Assessment Caprini VTE Risk Assessment: Mod/High Risk (score >= 2) VTE Pharm Contraindication: End Stage Liver Disease Caprini Risk Assessment Model Point Value = 1 Point Value = 2 Point Value = 3 Point Value = 5 Age 41-60 Minor surgery BMI > 25 kg/m2 Swollen legs Varicose veins or History of unexplained or recurrent spontaneous Oral contraceptives or hormone replacement Sepsis (< 1 month) Serious lung disease, including pneumonia (< 1 month) Abnormal pulmonary function Acute myocardial infarction Congestive heart failure (< 1 month) History of inflammatory bowel disease Medical patient at bed rest Age 61-74 Arthroscopic surgery Major open surgery (> 45 min) Laparoscopic surgery (> 45 min) Malignancy Confined to bed (> 72 hours) Immobilizing plaster cast Central venous access Age >= 75 History of VTE Family history of VTE Factor V Leiden Prothrombin [id number] Lupus anticoagulant Anticardiolipin antibodies Elevated serum homocysteine Heparin-induced thrombocytopenia Other congenital or acquired thrombophilia Stroke (< 1 month) Elective arthroplasty Hip, pelvis, or leg fracture Acute spinal cord injury (< 1 month) Prophylaxis Regimen Total Risk Factor Score Risk Level Prophylaxis Regimen 0-1 Low Early ambulation 2 Moderate Order ONE of the following: *Sequential Compression Device (SCD) *Heparin 5000 units SQ BID 3-4 Higher Order ONE of the following medications: *Heparin 5000 units SQ TID *Enoxaparin/Lovenox 40 mg SQ daily (WT < 150 kg, CrCl > 30 mL/min) *Enoxaparin/Lovenox 30 mg SQ daily (WT < 150 kg, CrCl > 10-29 mL/min) *Enoxaparin/Lovenox 30 mg SQ BID (WT < 150 kg, CrCl > 30 mL/min) AND/OR *Sequential Compression Device (SCD) 5 or more Highest Order ONE of the following medications: *Heparin 5000 units SQ TID (Preferred with Epidurals) *Enoxaparin/Lovenox 40 mg SQ daily (WT < 150 kg, CrCl > 30 mL/min) *Enoxaparin/Lovenox 30 mg SQ daily (WT < 150 kg, CrCl > 10-29 mL/min) *Enoxaparin/Lovenox 30 mg SQ BID (WT < 150 kg, CrCl > 30 mL/min) AND *Sequential Compression Device (SCD) Assessment and Plan Problem List: (1) Ascites ICD Code: R18.8 - Other ascites Status: Acute Assessment and Plan 56 y/o female with a history of liver cirrhosis, hep c, cva-left sided residual , and esophageal stricture presented to the ED with complaints of abdominal pain. Symptomatic ascites with transaminitis, AST 240, ALT 126 - Morphine 2 mg IVP q3h PRN -Consult GI for possible catheter placement -Resume home medications Xifaxan and spirolactone -Nothing by mouth -INR elevated 2.6, however FFP not indicated for cirrhotic patient requiring paracentesis. -Ultrasound guided paracentesis ordered with cell count and cultures Hypokalemia, potassium 3.0 -Supplementation ordered, trim labs and replace as needed Hyponatremia. Sodium 127. Chronic. Secondary to cirrhosis continue to monitor. thrombocytopenia. Chronic at recent baseline. Secondary to cirrhosis. No bleeding. Continue to monitor. DVT prophylaxis: SCDs Discussed Condition With Patient and ED physician This note was transcribed by EHSAN Jacob. I, Dr. Thang Leyva personally performed the history, physical exam, and medical decision making; and confirmed the accuracy of the information in the transcribed note. Authenticated by Dr. Thang Leyva on 03/09/17 at 05:47. Nasrin Khan Mar 08, 2017 22:29 Thang Leyva MD Mar 09, 2017 05:49
[2017-03-08 23:16] VITALS: BP 114/67; PULSE 83; RESP 17; TEMP 98.2; O2SAT 100
[2017-03-09] VITALS (7 sets, daily range): BP systolic 94–123; BP diastolic 53–64; PULSE 76–95; RESP 17–20; TEMP 96.1–98.6; O2SAT 95–100
[2017-03-09 06:04] LABS: ALBUMIN 2.2 GM/DL (3.4-5.0); AST (GOT) 233 U/L (15-37); BLOOD UREA NITROGEN 7 MG/DL (7-18); CALCIUM 8.6 MG/DL (8.5-10.1); CHLORIDE 99 MEQ/L (98-107); CREATININE 1.12 MG/DL (0.50-1.00); GLOMERULAR FILTRATION RATE 61 ML/MIN (>89); GLUCOSE,RANDOM 94 MG/DL (74-106); SODIUM (NA) 128 MEQ/L (136-145)
[2017-03-09 06:07] LABS: ALKALINE PHOSPHATASE 190 U/L (45-117); ALT (GPT) 122 U/L (10-53); TOTAL BILIRUBIN ADULT 9.7 MG/DL (0.2-1.0); TOTAL PROTEIN 8.5 GM/DL (6.4-8.2)
--- NOTE | 2017-03-09 07:55 | HHI.PR ---
Subjective Remarks The patient is in bed, feels tired. has some pain in her belly says is filling with water and is more painful. Has nausea but no vomiting. No appetite and was not able to eat. No fever or chills. Awaiting paracentesis. Objective Vitals Vital Signs Date Time Temp Pulse Resp B/P (MAP) Pulse Ox O2 Delivery O2 Flow Rate FiO2 03/09/17 07:16 98.6 85 19 120/64 (82) 100 03/09/17 03:28 98.4 83 18 96/57 (70) 100 03/08/17 23:16 98.2 83 17 114/67 (83) 100 03/08/17 19:48 100 Nasal Cannula 2.00 03/08/17 19:40 98.0 82 24 134/77 (96) 100 I/O 03/08/17 03/08/17 03/08/17 03/09/17 03/09/17 03/09/17 07:00 15:00 23:00 07:00 15:00 23:00 Intake Total 50 ml Output Total 200 ml Balance -150 ml Intake IV Total 50 ml Output Urine Total 200 ml Result Diagram: 03/08/17194403/09/17 0500 Imaging Last Impressions Chest X-Ray 03/08/171942 Signed Impressions: Service Date/Time: Wednesday, March 08, 2017 19:46 - CONCLUSION: No acute disease. Gildardo Pace MD Objective Remarks GENERAL: This is a well-nourished, well-developed patient, who appears in a lot of pain CARDIOVASCULAR: Regular rate and rhythm without murmurs, gallops, or rubs. RESPIRATORY: Clear to auscultation. Breath sounds equal bilaterally. No wheezes , rales, or rhonchi. GASTROINTESTINAL: Abdomen soft, severe tenderness, extremely distended. MUSCULOSKELETAL: +1 edema in bilateral lower extremities. No calf tenderness. Negative Homans sign bilaterally. NEUROLOGICAL: Awake and alert. Motor and sensory grossly within normal limits. Normal speech. A/P Problem List: (1) Ascites ICD Code: R18.8 - Other ascites Status: Acute Assessment and Plan 56 y/o female with a history of liver cirrhosis, hep c, cva-left sided residual , and esophageal stricture presented to the ED with complaints of abdominal pain. Symptomatic ascites with transaminitis, AST 240, ALT 126 Morphine 2 mg IVP q3h PRN Consult GI for possible catheter placement Resume home medications Xifaxan and spirolactone Nothing by mouth INR elevated 2.6, however FFP not indicated for cirrhotic patient requiring paracentesis. Ultrasound guided paracentesis ordered with cell count and cultures Hypokalemia, potassium 3.0 Replaced,monitor level and replace as needed Hyponatremia. Sodium 127 on admission. Chronic. Secondary to cirrhosis continue to monitor. Thrombocytopenia. Chronic at recent baseline. Secondary to cirrhosis. No bleeding. Continue to monitor. DVT prophylaxis: SCDs Discussed Condition With Patient and nurse Brionna Arias MD Mar 09, 2017 07:55
[2017-03-09] MEDS: SPIRONOLACTONE 100 MG TAB PO SCH ×2 (08:30→18:33)
[2017-03-09] MEDS: PANTOPRAZOLE SOD 40 MG DELAYED RELEASE TAB PO SCH (08:30)
[2017-03-09] MEDS: POTASSIUM CHLORIDE 10 MEQ CONTROLLED RELEASE TAB PO SCH (08:30)
[2017-03-09] MEDS: SODIUM CHLORIDE 0.9% FLUSH 10 ML FLUSH IV FLUSH SCH ×2 (08:31→20:00)
[2017-03-09] MEDS: RIFAXIMIN 550 MG TAB PO SCH ×2 (08:31→20:00)
[2017-03-09 09:21] LABS: AUTOMATED NEUTROPHIL # 2.6 TH/MM3 (1.8-7.7); BASOPHIL % 0.6 % (0.0-2.0); EOSINOPHIL % 0.8 % (0.0-4.0); HEMATOCRIT 23.8 % (35.0-46.0); HEMOGLOBIN 8.4 GM/DL (11.6-15.3); LYMPH % 22.5 % (9.0-44.0); MEAN CELL VOLUME 127.7 FL (80.0-100.0); MEAN CORPUSCULAR HEMOGLOBIN 45.3 PG (27.0-34.0); MEAN CORPUSCULAR HGB CONC 35.4 % (32.0-36.0); MEAN PLATELET VOLUME 8.2 FL (7.0-11.0); MONO % 19.3 % (0.0-8.0); MONOCYTE # 0.9 TH/MM3 (0-0.9); NEUT % 56.8 % (16.0-70.0); PLATELET COUNT 54 TH/MM3 (150-450); RED BLOOD COUNT 1.87 MIL/MM3 (4.00-5.30); RED CELL DISTRIBUTION WIDTH 18.5 % (11.6-17.2); WHITE BLOOD COUNT 4.5 TH/MM3 (4.0-11.0)
[2017-03-09 09:42] LABS: INTERNATIONAL NORMALIZED RATIO 2.6 RATIO
[2017-03-09 10:21] LABS: TARGET CELLS 2+ (NORMAL)
[2017-03-09] MEDS: MORPHINE SULFATE 2 MG/ML INJ IV PUSH PRN ×2 (13:24→19:59)
--- NOTE | 2017-03-09 16:41 | MB ---
cc: CAMILLE GAINES MD, HARRY M.D. DATE OF CONSULTATION 03/09/2017 DATE OF 1960 IT BUSINESS PROCESS ARCHITECT Dr. Bruce Byrnes HISTORY The patient is a 56-year-old black female I was asked to see for further evaluation and management of recurrent ascites. 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 Her last paracentesis she tells me was performed on February 13, she believes 5 liters or more of fluid may have been removed and she remembers receiving intravenous albumin. About 5 days ago fluid accumulated to the point of discomfort again. She came in the hospital now because of this. On questioning there has been some abdominal discomfort over the past day or two and yesterday she had one episode of shaking chills. No documented fever. MEDICAL HISTORY Significant for: 1. Hypertension. 2. Alcohol and hepatitis C related cirrhosis. 3. History of stroke with left-sided weakness. 4. History of an esophageal stricture. PAST SURGICAL HISTORY 1. Multiple paracenteses. 2. As well as panendoscopy with esophageal dilation. Most recent panendoscopy was performed on January 28, 2016. No stricture was evident and no varices were seen. A small nonbleeding ulcer was found in the prepyloric region. Biopsies revealed no H pylori infection. MEDICATIONS ON ADMISSION 1. Xifaxan for her hepatic encephalopathy at 550 mg b.i.d. 2. Lactulose 10 mg per 15 mL, 15 mL q.6h p.r.n. 3. Potassium chloride 10 mEq daily. 4. Spironolactone 100 mg b.i.d. 5. Furosemide 40 mg b.i.d. 6. Pantoprazole 40 mg daily. ALLERGIES None known to medications. SOCIAL HISTORY Alcohol use none recently. Tobacco use two to three cigars per day. FAMILY HISTORY Mother had gastric cancer. REVIEW OF SYSTEMS She has had no recent headaches. No history of seizures. No vision difficulties. No dysphagia. Currently no odynophagia. Some abdominal discomfort. One episode of shaking chills. No respiratory complaints. No cardiac symptomatology or palpitations. No problems with muscle or joint pains. Her weight has been fluctuating related to the fluid accumulation and paracenteses. No history of pancreatic disease or diabetes. PHYSICAL EXAMINATION VITAL SIGNS: On physical examination her weight is 68.1 kg, temperature is 98.1, pulse 88, blood pressure 100/60. GENERAL: She is alert. She is oriented x3. HEENT: She does have icterus. Extraocular motions are intact. LYMPHATICS: I appreciate no submandibular, cervical, supraclavicular, axillary or epitrochlear adenopathy. There is definite muscle wasting evident. LUNGS: Decreased breath sounds at the bases, especially. CARDIOVASCULAR: Heart exam regular rate and rhythm with no gross murmur or gallop. ABDOMEN: Abdominal exam distended abdomen with good bowel sounds tympany centrally and dull laterally with a fluid shift. There is mild diffuse tenderness. No masses or hepatosplenomegaly are appreciated. EXTREMITIES: There is lower extremity edema. I appreciate no asterixis or palmar erythema or Dupuytren's contractures. IMAGING Chest x-ray revealed no acute disease. A CT scan of the abdomen and pelvis February 23 of this year revealed cirrhosis, severe ascites and cholelithiasis. MRCP was performed which revealed a 7-8 mm common bile duct, marked ascites and a cirrhotic liver. No biliary ductal pathology was noted. IMPRESSION End-stage liver disease with portal hypertension, ascites, hepatic encephalopathy. She is requiring recurrent paracentesis. She was asking about a Tenckhoff catheter. We discussed the fact that this is a high-risk apparatus in a patient with cirrhotic ascites. (Patients with malignant ascites tend to have a lower risk for peritonitis and such a catheter is more logical in that the patient type). Ideally paracentesis should be performed with a cell count especially given her recent chills and the abdominal pain with tenderness. LABORATORY DATA Her laboratory studies at this time include a white count of 4.5 with a hemoglobin of 8.4 and platelet count of 54,000. Her INR is 2.6. Sodium 128, potassium 3.6, BUN 7, creatinine 1.12, bilirubin 9.7, AST 233, ALT 122, alkaline phosphatase 190. Lipase normal. Ideally she needs a paracentesis with fluid analysis for cell count and differential and we should also check cytology for thoroughness. She will likely need fresh frozen plasma as she has a coagulopathy and thrombocytopenia. I will contact the radiology department to coordinate paracentesis. We should consider performing paracentesis routinely every 2 weeks as this is a lower risk procedure than an indwelling catheter in this particular patient. Her long-term prognosis is poor. Her MELD score is 27, a MELD - sodium is 31. If she was a candidate for liver transplant evaluation, this is the time to send her for a transplant evaluation. Seems this is not an propriate option for her. MD MARIS Hu/XENA /3:50 PM /4:08 PM
[2017-03-09] MEDS ORDERED: LIDOCAINE HCL 1% 20 ML VIAL ONE (18:01)
[2017-03-09] MEDS ORDERED: ALBUMIN HUMAN 25% 12.5GM-W/25GM FOR 37.5GM IV ONE ×2 (18:15→19:00)
[2017-03-09] MEDS ORDERED: ALBUMIN HUMAN 25% 25GM-W/12.5GM FOR 37.5GM IV ONE ×2 (18:15→19:00)
[2017-03-09 19:27] LABS: PERITONEAL HISTIOCYTES 18 %; PERITONEAL LYMPHS 42 %; PERITONEAL MESOTHELIAL 3 %; PERITONEAL MONOS 18 %; PERITONEAL POLYS(SEGS) 19 %; PERITONEAL RBC 296 /MM3 (0-0)
[2017-03-10] VITALS (7 sets, daily range): BP systolic 95–107; BP diastolic 53–59; PULSE 87–94; RESP 16–18; TEMP 97.2–98; O2SAT 95–100
[2017-03-10 06:16] LABS: AUTOMATED NEUTROPHIL # 2.1 TH/MM3 (1.8-7.7); BASOPHIL % 0.3 % (0.0-2.0); EOSINOPHIL % 0.7 % (0.0-4.0); LYMPHOCYTE # 0.7 TH/MM3 (1.0-4.8); MEAN CORPUSCULAR HEMOGLOBIN 44.1 PG (27.0-34.0); MEAN PLATELET VOLUME 8.1 FL (7.0-11.0); MONO % 19.7 % (0.0-8.0); MONOCYTE # 0.7 TH/MM3 (0-0.9); NEUT % 60.3 % (16.0-70.0); PLATELET COUNT 52 TH/MM3 (150-450); RED BLOOD COUNT 1.64 MIL/MM3 (4.00-5.30); RED CELL DISTRIBUTION WIDTH 18.5 % (11.6-17.2); WHITE BLOOD COUNT 3.5 TH/MM3 (4.0-11.0)
[2017-03-10 06:36] LABS: BICARBONATE 21.8 MEQ/L (21.0-32.0); CALCIUM 9.1 MG/DL (8.5-10.1); CREATININE 1.01 MG/DL (0.50-1.00)
[2017-03-10 06:59] LABS: HEMATOCRIT 20.6 % (35.0-46.0)
[2017-03-10 07:00] LABS: HEMOGLOBIN 7.2 GM/DL (11.6-15.3)
[2017-03-10 07:03] LABS: BANDS 3 % (0-6); CORRECTED NUCLEATED RBC 1 /100 WBC (0-0); LYMPHOCYTES 17 % (9-44); MONOCYTES 16 % (0-8); NEUTROPHIL # MANUAL DIFF 2.3 TH/MM3 (1.8-7.7); NUCLEATED RED BLOOD CELL 1 (0-0); POLYS (SEG NEUTROPHILS) 64 % (16-70)
[2017-03-10 07:06] LABS: INTERNATIONAL NORMALIZED RATIO 2.9 RATIO; PROTHROMBIN TIME - PATIENT 33.5 SEC (9.8-11.6)
--- NOTE | 2017-03-10 07:35 | RADRPT ---
EXAM DATE/TIME: 03/09/2017 16:24 [facility] COMPARISON: US GUIDED ABD PARACENTESIS, February 24, 2017, 14:49. INDICATIONS : Ascites. MEDICAL HISTORY : Hypercholesterolemia. Cirrhosis. Hepatitis C. Hypertension. Glaucoma. CVA. SURGICAL HISTORY : Hernia repair. Paracentesis. ENCOUNTER: Subsequent ACUITY: 2 weeks PAIN SCORE: 1/10 LOCATION: Right lower quadrant FLUID: Total volume of 8000 cc of clear, yellow fluid was removed. Fluid was sent to lab for ordered studies. Post procedure scanning reveals no hematoma or other complication. TECHNIQUE: 1. Ultrasound guidance for abdominal paracentesis. 2. Paracentesis. The risks, benefits, and alternatives to ultrasound guided paracentesis were explained to the patient in detail including the risk of bleeding and infection. Written and verbal informed consent was obt ained. With the patient on the ultrasound table, ultrasound imaging was used to select the most appropriate approach for paracentesis. Overlying skin was prepped and draped in the usual sterile fashion and wi th a local anesthetic, a dermatotomy was made with an 11 blade scalpel. A 6 Italian [id number] ca theter was introduced into the peritoneal cavity and fluid was collected. The patient tolerated the procedure well and left the ultrasound suite in stable condition. CONCLUSION: Uncomplicated ultrasound guided paracentesis. Pavan Elena MD on March 10, 2017 at 7:34 Board Certified Radiologist. This report was verified electronically.
[2017-03-10] MEDS: RIFAXIMIN 550 MG TAB PO SCH ×2 (08:19→21:04)
[2017-03-10] MEDS: PANTOPRAZOLE SOD 40 MG DELAYED RELEASE TAB PO SCH (08:20)
[2017-03-10] MEDS: SPIRONOLACTONE 100 MG TAB PO SCH ×2 (08:20→17:52)
[2017-03-10] MEDS: POTASSIUM CHLORIDE 10 MEQ CONTROLLED RELEASE TAB PO SCH (08:21)
[2017-03-10] MEDS: SODIUM CHLORIDE 0.9% FLUSH 10 ML FLUSH IV FLUSH SCH ×2 (08:21→21:00)
--- NOTE | 2017-03-10 10:24 | HHI.PR ---
Subjective Remarks Ambulating in the room. Says she feels some improvement since paracentesis. No fever or chills. Some abd pain, however improved, feels belly is still distended. Able to eat, appetitie imprpved some. No n/v/d/c. Objective Vitals Vital Signs Date Time Temp Pulse Resp B/P (MAP) Pulse Ox O2 Delivery O2 Flow Rate FiO2 03/10/17 07:30 98.0 93 16 97/54 (68) 95 03/10/17 03:14 97.2 91 17 96/53 (67) 97 03/10/17 00:38 97.7 94 18 95/54 (68) 99 03/09/17 20:17 98.0 92 17 100/59 (73) 98 03/09/17 18:27 95 20 104/56 (72) 96 03/09/17 17:53 85 20 123/53 (76) 95 03/09/17 17:35 96.1 76 18 94/61 (72) 100 03/09/17 14:05 18 03/09/17 13:20 98.1 88 18 100/60 (73) 99 I/O 03/09/17 03/09/17 03/09/17 03/10/17 03/10/17 03/10/17 07:00 15:00 23:00 07:00 15:00 23:00 Intake Total 50 ml 360 ml Output Total 200 ml Balance -150 ml 360 ml Intake Oral 360 ml IV Total 50 ml Output Urine Total 200 ml # Voids 2 Result Diagram: 03/10/17 0520 03/10/17 0520 Imaging Last Impressions Cyst Biopsy Asp-Paracentesis US 03/09/17 0000 Signed Impressions: Service Date/Time: Thursday, March 09, 2017 16:24 - CONCLUSION: Uncomplicated ultrasound guided paracentesis. Pavan Elena MD Chest X-Ray 03/08/17 194 Signed Impressions: Service Date/Time: Wednesday, March 08, 2017 19:46 - CONCLUSION: No acute disease. Gildardo Pace MD Objective Remarks GENERAL: This is a well-nourished, well-developed patient, who appears in a lot of pain CARDIOVASCULAR: Regular rate and rhythm without murmurs, gallops, or rubs. RESPIRATORY: Clear to auscultation. Breath sounds equal bilaterally. No wheezes , rales, or rhonchi. GASTROINTESTINAL: Abdomen soft, severe tenderness, extremely distended. MUSCULOSKELETAL: +1 edema in bilateral lower extremities. No calf tenderness. Negative Homans sign bilaterally. NEUROLOGICAL: Awake and alert. Motor and sensory grossly within normal limits. Normal speech. A/P Problem List: (1) Ascites ICD Code: R18.8 - Other ascites Status: Acute Assessment and Plan 56 y/o female with a history of liver cirrhosis, hep c, cva-left sided residual , and esophageal stricture presented to the ED with complaints of abdominal pain. Symptomatic ascites with transaminitis, AST 240, ALT 126 Morphine 2 mg IVP q3h PRN Consult GI for possible catheter placement, seen by Dr Byrnes recommends paracentesis q2 weeks, not a transplant candidate also Resume home medications Xifaxan and spirolactone Nothing by mouth INR elevated 2.6, however FFP not indicated for cirrhotic patient requiring paracentesis. Ultrasound guided paracentesis ordered with cell count and cultures Hypokalemia, potassium 3.0 Replaced,monitor level and replace as needed Hyponatremia. Sodium 127 on admission. Chronic. Secondary to cirrhosis continue to monitor. Thrombocytopenia. Chronic at recent baseline. Secondary to cirrhosis. No bleeding. Continue to monitor. DVT prophylaxis: SCDs Discussed Condition With Patient and nurse Discharge Planning pending improvement, f/u cultures Brionna Arias MD Mar 10, 2017 10:24
--- NOTE | 2017-03-10 10:36 | HHI.GIFU ---
GI Follow-up Note Consult Follow-up Subjective: Patient laying in bed comfortably-no abd pain this am. Hgb 7.2 this am. No GI bleeding but she did have a bloody nose Objective: PHYSICAL EXAMINATION: /54-93-16 No fever NECK: Neck is supple, no JVD, no lymphadenopathy. CHEST: Chest is clear to auscultation and percussion. CARDIAC: Regular rate and rhythm with no murmur gallop or rubs. ABDOMEN: Soft, less ascites. nontender; no hepatosplenomegaly; bowel sounds are present in all four quadrants. EXTREMITIES: Trace edema. SKIN: Normal; no rash; OUTPATIENT CASE MANAGER: alert and oriented times three. Available Data (labs, X- Rays, Procedues) : Ascitic cell ct not suggestive of SBP ASSESSMENT/PLAN: 1. End-stage liver disease with portal hypertension, ascites, hepatic encephalopathy. --Stable this am. She feels better after paracentesis 2. Anemia-no melena or BRBPR PLAN: 1. F/U as oupt to arrange paracentesis 2. Cont water pills and Xifaxan It was a pleasure seeing Lesli Dillard. Thank you for this consult. Entered by: Gilbert Narvaez MD Mar 10, 2017 10:36
--- NOTE | 2017-03-10 10:36 | HHI.GIFU ---
GI Follow-up Note Consult Follow-up Subjective: Patient laying in bed comfortably-no abd pain this am. Hgb 7.2 this am. No GI bleeding but she did have a bloody nose Objective: PHYSICAL EXAMINATION: /54-93-16 No fever NECK: Neck is supple, no JVD, no lymphadenopathy. CHEST: Chest is clear to auscultation and percussion. CARDIAC: Regular rate and rhythm with no murmur gallop or rubs. ABDOMEN: Soft, less ascites. nontender; no hepatosplenomegaly; bowel sounds are present in all four quadrants. EXTREMITIES: Trace edema. SKIN: Normal; no rash; BUSINESS INFORMATION CONSULTANT: alert and oriented times three. Available Data (labs, X- Rays, Procedues) : Ascitic cell ct not suggestive of SBP ASSESSMENT/PLAN: 1. End-stage liver disease with portal hypertension, ascites, hepatic encephalopathy. --Stable this am. She feels better after paracentesis 2. Anemia-no melena or BRBPR PLAN: 1. F/U as oupt to arrange paracentesis 2. Cont water pills and Xifaxan It was a pleasure seeing Lesli Dillard. Thank you for this consult. Entered by: Gilbert Narvaez MD Mar 10, 2017 10:36
--- NOTE | 2017-03-10 10:36 | HHI.GIFU ---
GI Follow-up Note Consult Follow-up Subjective: Patient laying in bed comfortably-no abd pain this am. Hgb 7.2 this am. No GI bleeding but she did have a bloody nose Objective: PHYSICAL EXAMINATION: /54-93-16 No fever NECK: Neck is supple, no JVD, no lymphadenopathy. CHEST: Chest is clear to auscultation and percussion. CARDIAC: Regular rate and rhythm with no murmur gallop or rubs. ABDOMEN: Soft, less ascites. nontender; no hepatosplenomegaly; bowel sounds are present in all four quadrants. EXTREMITIES: Trace edema. SKIN: Normal; no rash; MILK ROUTE DELIVERER: alert and oriented times three. Available Data (labs, X- Rays, Procedues) : Ascitic cell ct not suggestive of SBP ASSESSMENT/PLAN: 1. End-stage liver disease with portal hypertension, ascites, hepatic encephalopathy. --Stable this am. She feels better after paracentesis 2. Anemia-no melena or BRBPR PLAN: 1. F/U as oupt to arrange paracentesis 2. Cont water pills and Xifaxan It was a pleasure seeing Lelsi Dillard. Thank you for this consult. Entered by: Gilbert Narvaez MD Mar 10, 2017 10:36
[2017-03-10] MEDS: FERROUS SULFATE 325 MG (65 MG ELEMENTAL IRON) TAB PO SCH (12:52)
[2017-03-10 14:12] LABS: % SATURATION IRON PROFILE 85.9 % (20-50); IRON (FE) 101 MCG/DL (50-170); TOTAL IRON BINDING CAPACITY 118 MCG/DL (250-450)
[2017-03-10 14:37] LABS: FERRITIN 648 NG/ML (8-252); FOLATE 5.1 NG/ML (3.1-17.5)
[2017-03-10] MEDS: MORPHINE SULFATE 2 MG/ML INJ IV PUSH PRN (21:04)
[2017-03-11] VITALS (9 sets, daily range): BP systolic 95–120; BP diastolic 52–62; PULSE 74–90; RESP 16–23; TEMP 97.5–98.3; O2SAT 95–100
[2017-03-11] MEDS: MORPHINE SULFATE 2 MG/ML INJ IV PUSH PRN (00:29)
[2017-03-11] MEDS: FERROUS SULFATE 325 MG (65 MG ELEMENTAL IRON) TAB PO SCH (09:08)
[2017-03-11] MEDS: POTASSIUM CHLORIDE 10 MEQ CONTROLLED RELEASE TAB PO SCH (09:08)
[2017-03-11] MEDS: RIFAXIMIN 550 MG TAB PO SCH ×2 (09:09→20:10)
[2017-03-11] MEDS: SPIRONOLACTONE 100 MG TAB PO SCH ×2 (09:09→16:12)
[2017-03-11] MEDS: PANTOPRAZOLE SOD 40 MG DELAYED RELEASE TAB PO SCH (09:09)
[2017-03-11] MEDS: SODIUM CHLORIDE 0.9% FLUSH 10 ML FLUSH IV FLUSH SCH ×2 (09:09→20:10)
[2017-03-11 09:17] LABS: AUTOMATED NEUTROPHIL # 3.3 TH/MM3 (1.8-7.7); BASOPHIL % 0.3 % (0.0-2.0); EOSINOPHIL % 0.5 % (0.0-4.0); HEMOGLOBIN 7.2 GM/DL (11.6-15.3); LYMPH % 20.6 % (9.0-44.0); LYMPHOCYTE # 1.1 TH/MM3 (1.0-4.8); MEAN CELL VOLUME 126.4 FL (80.0-100.0); MEAN CORPUSCULAR HEMOGLOBIN 43.5 PG (27.0-34.0); MEAN CORPUSCULAR HGB CONC 34.4 % (32.0-36.0); MEAN PLATELET VOLUME 8.2 FL (7.0-11.0); MONO % 19.5 % (0.0-8.0); MONOCYTE # 1.1 TH/MM3 (0-0.9); NEUT % 59.1 % (16.0-70.0); PLATELET COUNT 56 TH/MM3 (150-450); RED BLOOD COUNT 1.66 MIL/MM3 (4.00-5.30); RED CELL DISTRIBUTION WIDTH 18.8 % (11.6-17.2); WHITE BLOOD COUNT 5.5 TH/MM3 (4.0-11.0)
[2017-03-11 09:34] LABS: PROTHROMBIN TIME - PATIENT 34.3 SEC (9.8-11.6)
[2017-03-11 09:49] LABS: ALBUMIN 2.2 GM/DL (3.4-5.0); ALKALINE PHOSPHATASE 136 U/L (45-117); ALT (GPT) 98 U/L (10-53); AST (GOT) 204 U/L (15-37); BICARBONATE 20.7 MEQ/L (21.0-32.0); CALCIUM 9.5 MG/DL (8.5-10.1); CHLORIDE 97 MEQ/L (98-107); CREATININE 1.15 MG/DL (0.50-1.00); GLOMERULAR FILTRATION RATE 59 ML/MIN (>89); GLUCOSE,RANDOM 68 MG/DL (74-106); MAGNESIUM 2.2 MG/DL (1.5-2.5); SODIUM (NA) 126 MEQ/L (136-145); TOTAL BILIRUBIN ADULT 9.9 MG/DL (0.2-1.0); TOTAL PROTEIN 7.1 GM/DL (6.4-8.2)
[2017-03-11 09:54] LABS: BLOOD UREA NITROGEN 9 MG/DL (7-18)
[2017-03-11 10:02] LABS: CORRECTED NUCLEATED RBC 1 /100 WBC (0-0); LYMPHOCYTES 9 % (9-44); MONOCYTES 6 % (0-8); NEUTROPHIL # MANUAL DIFF 4.7 TH/MM3 (1.8-7.7); NUCLEATED RED BLOOD CELL 1 (0-0); POLYS (SEG NEUTROPHILS) 85 % (16-70)
[2017-03-11 10:03] LABS: TARGET CELLS 1+ (NORMAL)
[2017-03-11] MEDS ORDERED: PHYTONADIONE 10 MG/ML VIAL SQ ONE (10:45)
[2017-03-11] MEDS ORDERED: SODIUM CHLOR 0.9% 250 ML INJ 250 ML IV ONE (10:45)
[2017-03-11] MEDS: FUROSEMIDE 40 MG TAB PO SCH (16:12)
[2017-03-11] MEDS ORDERED: ALBUMIN 25% INJ 100 ML IV ONE (17:00)
--- NOTE | 2017-03-11 17:01 | HHI.PR ---
Subjective Remarks Patient reports feeling well- feel ready to go home A&O x3 offers no specific complaints at this time Objective Vitals Vital Signs Date Time Temp Pulse Resp B/P (MAP) Pulse Ox O2 Delivery O2 Flow Rate FiO2 03/11/17 11:53 98.0 87 22 97/53 (68) 100 03/11/17 08:10 98.0 89 23 95/52 (66) 98 03/11/17 08:00 Room Air 03/11/17 08:00 89 03/11/17 04:00 98.2 90 16 95/60 (72) 99 03/11/17 03:48 Room Air 03/11/17 00:00 98.3 89 16 97/54 (68) 99 03/11/17 00:00 Room Air 03/10/17 20:45 91 03/10/17 20:00 Room Air 03/10/17 20:00 97.9 88 16 106/59 (75) I/O 03/10/17 03/10/17 03/10/17 03/11/17 03/11/17 03/11/17 07:00 15:00 23:00 07:00 15:00 23:00 Intake Total 480 ml Balance 480 ml Intake Oral 480 ml # Voids 2 Result Diagram: 03/11/17 0850 03/11/17 0850 Other Results Laboratory Tests Test 03/08/17 19:45 03/09/17 05:00 03/09/17 07:30 03/09/17 08:45 White Blood Count 4.4 TH/MM3 4.5 TH/MM3 Red Blood Count 1.91 MIL/MM3 1.87 MIL/MM3 Hemoglobin 8.4 GM/DL 8.4 GM/DL Hematocrit 24.3 % 23.8 % Mean Corpuscular Volume 127.0 FL 127.7 FL Mean Corpuscular Hemoglobin 44.1 PG 45.3 PG Mean Corpuscular Hemoglobin Concent 34.7 % 35.4 % Red Cell Distribution Width 19.0 % 18.5 % Platelet Count 59 TH/MM3 54 TH/MM3 Mean Platelet Volume 8.4 FL 8.2 FL Neutrophils (%) (Auto) 62.0 % 56.8 % Lymphocytes (%) (Auto) 17.2 % 22.5 % Monocytes (%) (Auto) 19.9 % 19.3 % Eosinophils (%) (Auto) 0.5 % 0.8 % Basophils (%) (Auto) 0.4 % 0.6 % Neutrophils # (Auto) 2.7 TH/MM3 2.6 TH/MM3 Lymphocytes # (Auto) 0.8 TH/MM3 1.0 TH/MM3 Monocytes # (Auto) 0.9 TH/MM3 0.9 TH/MM3 Eosinophils # (Auto) 0.0 TH/MM3 0.0 TH/MM3 Basophils # (Auto) 0.0 TH/MM3 0.0 TH/MM3 CBC Comment AUTO DIFF AUTO DIFF Differential Comment AUTO DIFF CONFIRMED AUTO DIFF CONFIRMED Platelet Estimate LOW LOW Platelet Morphology Comment NORMAL NORMAL Target Cells 1+ 2+ Prothrombin Time 30.0 SEC 30.0 SEC Prothromb Time International Ratio 2.6 RATIO 2.6 RATIO Activated Partial Thromboplast Time 52.6 SEC Blood Urea Nitrogen 7 MG/DL 7 MG/DL Creatinine 1.14 MG/DL 1.12 MG/DL Random Glucose 137 MG/DL 94 MG/DL Total Protein 8.5 GM/DL 8.5 GM/DL Albumin 2.1 GM/DL 2.2 GM/DL Calcium Level 8.3 MG/DL 8.6 MG/DL Alkaline Phosphatase 196 U/L 190 U/L Aspartate Amino Transf (AST/SGOT) 240 U/L 233 U/L Alanine Aminotransferase (ALT/SGPT) 126 U/L 122 U/L Total Bilirubin 9.2 MG/DL 9.7 MG/DL Sodium Level 127 MEQ/L 128 MEQ/L Potassium Level 3.0 MEQ/L 3.6 MEQ/L Chloride Level 98 MEQ/L 99 MEQ/L Carbon Dioxide Level 19.8 MEQ/L 22.0 MEQ/L Anion Gap 9 MEQ/L 7 MEQ/L Estimat Glomerular Filtration Rate 59 ML/MIN 61 ML/MIN Magnesium Level 1.9 MG/DL C-Reactive Protein 1.60 MG/DL Lipase 389 U/L Test 03/09/17 17:50 03/10/17 05:20 03/11/17 08:50 Peritoneal Fluid WBC 40 /MM3 Peritoneal Fluid RBC 296 /MM3 Peritoneal Fluid Neutrophils 19 % Peritoneal Fluid Lymphocytes 42 % Peritoneal Fluid Monocytes 18 % Peritoneal Fluid Histiocytes 18 % Peritoneal Fluid Mesothelial Cells 3 % Peritoneal Fluid Albumin 0.2 G/DL White Blood Count 3.5 TH/MM3 5.5 TH/MM3 Red Blood Count 1.64 MIL/MM3 1.66 MIL/MM3 Hemoglobin 7.2 GM/DL 7.2 GM/DL Hematocrit 20.6 % 21.0 % Mean Corpuscular Volume 126.0 FL 126.4 FL Mean Corpuscular Hemoglobin 44.1 PG 43.5 PG Mean Corpuscular Hemoglobin Concent 35.0 % 34.4 % Red Cell Distribution Width 18.5 % 18.8 % Platelet Count 52 TH/MM3 56 TH/MM3 Mean Platelet Volume 8.1 FL 8.2 FL Neutrophils (%) (Auto) 60.3 % 59.1 % Lymphocytes (%) (Auto) 19.0 % 20.6 % Monocytes (%) (Auto) 19.7 % 19.5 % Eosinophils (%) (Auto) 0.7 % 0.5 % Basophils (%) (Auto) 0.3 % 0.3 % Neutrophils # (Auto) 2.1 TH/MM3 3.3 TH/MM3 Lymphocytes # (Auto) 0.7 TH/MM3 1.1 TH/MM3 Monocytes # (Auto) 0.7 TH/MM3 1.1 TH/MM3 Eosinophils # (Auto) 0.0 TH/MM3 0.0 TH/MM3 Basophils # (Auto) 0.0 TH/MM3 0.0 TH/MM3 CBC Comment AUTO DIFF AUTO DIFF Differential Total Cells Counted 100 100 Neutrophils % (Manual) 64 % 85 % Band Neutrophils % 3 % Lymphocytes % 17 % 9 % Monocytes % 16 % 6 % Neutrophils # (Manual) 2.3 TH/MM3 4.7 TH/MM3 Nucleated Red Blood Cells 1 /100 WBC 1 /100 WBC Differential Comment FINAL DIFF MANUAL FINAL DIFF MANUAL Platelet Estimate LOW LOW Platelet Morphology Comment NORMAL NORMAL Prothrombin Time 33.5 SEC 34.3 SEC Prothromb Time International Ratio 2.9 RATIO 3.0 RATIO Blood Urea Nitrogen 9 MG/DL 9 MG/DL Creatinine 1.01 MG/DL 1.15 MG/DL Random Glucose 103 MG/DL 68 MG/DL Calcium Level 9.1 MG/DL 9.5 MG/DL Sodium Level 128 MEQ/L 126 MEQ/L Potassium Level 4.1 MEQ/L 5.1 MEQ/L Chloride Level 98 MEQ/L 97 MEQ/L Carbon Dioxide Level 21.8 MEQ/L 20.7 MEQ/L Anion Gap 8 MEQ/L 8 MEQ/L Estimat Glomerular Filtration Rate 68 ML/MIN 59 ML/MIN Iron Level 101 MCG/DL Total Iron Binding Capacity 118 MCG/DL Percent Iron Saturation 85.9 % Ferritin 648 NG/ML Vitamin B12 Level GREATER THAN 2000 PG/ML Folate 5.1 NG/ML Polychromasia 2.0 % Target Cells 1+ Total Protein 7.1 GM/DL Albumin 2.2 GM/DL Magnesium Level 2.2 MG/DL Alkaline Phosphatase 136 U/L Aspartate Amino Transf (AST/SGOT) 204 U/L Alanine Aminotransferase (ALT/SGPT) 98 U/L Total Bilirubin 9.9 MG/DL Imaging Last Impressions Cyst Biopsy Asp-Paracentesis US 03/09/17 0000 Signed Impressions: Service Date/Time: Thursday, March 09, 2017 16:24 - CONCLUSION: Uncomplicated ultrasound guided paracentesis. Pavan Elena MD Chest X-Ray 03/08/171942 Signed Impressions: Service Date/Time: Wednesday, March 08, 2017 19:46 - CONCLUSION: No acute disease. Gildardo Pace MD Objective Remarks GENERAL: This is a 56 year old female who appears older than stated age with chronic ascites, in no acute distress CARDIOVASCULAR: Regular rate and rhythm RESPIRATORY: Clear to auscultation. Breath sounds equal bilaterally. GASTROINTESTINAL: Abdomen soft, distended with normoactive BS MUSCULOSKELETAL: trace edema in bilateral lower extremities. No calf tenderness. Negative Homans sign bilaterally. NEUROLOGICAL: Awake and alert. Motor and sensory grossly within normal limits. Normal speech. Procedures US guided Paracentesis 8L removed by Dr. Elena IR 03/09 A/P Problem List: (1) Ascites ICD Code: R18.8 - Other ascites Status: Acute Assessment and Plan Assessment and Plan 56 y/o female with a history of liver cirrhosis, hep c, cva-left sided residual , and esophageal stricture presented to the ED with complaints of abdominal pain. Symptomatic ascites with transaminitis, AST 240, ALT 126 S/P US guided Paracentesis 8L removed by Dr. Elena IR 03/09 Consult GI for possible catheter placement, seen by Dr Byrnes recommends paracentesis q2 weeks, not a transplant candidate also Resume home medications Xifaxan and spirolactone INR elevated 3.0, however FFP not indicated for cirrhotic patient requiring paracentesis, will give vitamin k 5 mg x 1 recheck INR in AM remains hypotensive will give albumin 25g this evening Hypokalemia resolved Replaced,monitor level and replace as needed CMP in AM Hyponatremia. Sodium 127 on admission today (03/11) Na 126 Chronic. Secondary to cirrhosis continue to monitor. CMP in AM Thrombocytopenia. Chronic at recent baseline. Secondary to cirrhosis. No bleeding. Continue to monitor. Anemia will give 1 unit PRBCs today recheck CBC in AM DVT prophylaxis: SCDs Discussed Condition With Patient, nurse and Dr. Leyva Discharge Planning plan to DC tomorrow if stable Bere Bhatti Mar 11, 2017 17:01
[2017-03-12] VITALS: BP 101/65; PULSE 90; RESP 20; TEMP 97.7; O2SAT 98
[2017-03-12 04:00] VITALS: BP 93/47; PULSE 88; RESP 23; TEMP 97.7; O2SAT 100
[2017-03-12 07:30] VITALS: BP 99/53; PULSE 89; RESP 20; TEMP 98; O2SAT 94
[2017-03-12 08:17] LABS: BASOPHIL % 0.4 % (0.0-2.0); EOSINOPHIL % 0.4 % (0.0-4.0); HEMATOCRIT 24.1 % (35.0-46.0); HEMOGLOBIN 8.5 GM/DL (11.6-15.3); LYMPH % 18.3 % (9.0-44.0); LYMPHOCYTE # 0.9 TH/MM3 (1.0-4.8); MEAN CELL VOLUME 117.6 FL (80.0-100.0); MEAN CORPUSCULAR HEMOGLOBIN 41.5 PG (27.0-34.0); MEAN CORPUSCULAR HGB CONC 35.3 % (32.0-36.0); MEAN PLATELET VOLUME 7.7 FL (7.0-11.0); MONO % 21.1 % (0.0-8.0); MONOCYTE # 1.1 TH/MM3 (0-0.9); NEUT % 59.8 % (16.0-70.0); PLATELET COUNT 46 TH/MM3 (150-450); RED BLOOD COUNT 2.05 MIL/MM3 (4.00-5.30); RED CELL DISTRIBUTION WIDTH 25.1 % (11.6-17.2); WHITE BLOOD COUNT 5.1 TH/MM3 (4.0-11.0)
[2017-03-12 08:41] LABS: ALBUMIN 2.4 GM/DL (3.4-5.0); ALT (GPT) 92 U/L (10-53); AST (GOT) 197 U/L (15-37); BICARBONATE 22.2 MEQ/L (21.0-32.0); BLOOD UREA NITROGEN 9 MG/DL (7-18); CALCIUM 9.9 MG/DL (8.5-10.1); CHLORIDE 98 MEQ/L (98-107); CREATININE 0.93 MG/DL (0.50-1.00); GLOMERULAR FILTRATION RATE 75 ML/MIN (>89); GLUCOSE,RANDOM 59 MG/DL (74-106); SODIUM (NA) 128 MEQ/L (136-145)
[2017-03-12] MEDS: FERROUS SULFATE 325 MG (65 MG ELEMENTAL IRON) TAB PO SCH (08:41)
[2017-03-12] MEDS: POTASSIUM CHLORIDE 10 MEQ CONTROLLED RELEASE TAB PO SCH (08:41)
[2017-03-12] MEDS: SODIUM CHLORIDE 0.9% FLUSH 10 ML FLUSH IV FLUSH SCH (08:41)
[2017-03-12] MEDS: PANTOPRAZOLE SOD 40 MG DELAYED RELEASE TAB PO SCH (08:41)
[2017-03-12] MEDS: SPIRONOLACTONE 100 MG TAB PO SCH (08:41)
[2017-03-12] MEDS: FUROSEMIDE 40 MG TAB PO SCH (08:41)
[2017-03-12] MEDS: RIFAXIMIN 550 MG TAB PO SCH (08:41)
[2017-03-12 08:50] LABS: ALKALINE PHOSPHATASE 115 U/L (45-117); TOTAL BILIRUBIN ADULT 14.7 MG/DL (0.2-1.0)
[2017-03-12 08:52] LABS: PROTHROMBIN TIME - PATIENT 34.3 SEC (9.8-11.6)
[2017-03-12 09:09] LABS: TARGET CELLS 1+ (NORMAL)
[2017-03-12] MEDS ORDERED: FERR325T20 PO (09:44)
--- NOTE | 2017-03-12 09:44 | HHI.DS ---
Discharge Summary Admission Date Mar 09, 2017 at 12:46 Discharge Date: Mar 12, 2017 Admitting Diagnosis Severe ascites with electrolyte derangements (1) Ascites ICD Code: R18.8 - Other ascites Status: Acute Procedures US guided Paracentesis 8L removed by Dr. Elena IR 03/09 Brief History - From Admission Written by EHSAN Degroot acting as scribe for Dr. Gutierrez] on 03/08/17 at 22:24. 56 y/o female with a history of liver cirrhosis, hep c, cva-left sided residual , and esophageal stricture presented to the ED with complaints of abdominal pain. She states her pain started yesterday and her abdomen started swelling. She states the pain in sharp, 10/10, and constant in her whole abdomen with no radiation and worse with movement and it keeps her from sleeping with associated chills, nausea, and weakness, and shortness of breath. She denies any chest pain or fevers. Last paracentesis was last Wednesday. CBC/BMP: 03/12/17 0748 03/12/17 0748 Significant Findings Laboratory Tests Test 03/09/17 17:50 03/10/17 05:20 03/11/17 08:50 03/12/17 07:48 Peritoneal Fluid WBC 40 /MM3 (0-10) Peritoneal Fluid RBC 296 /MM3 (0-0) White Blood Count 3.5 TH/MM3 (4.0-11.0) Red Blood Count 1.64 MIL/MM3 (4.00-5.30) 1.66 MIL/MM3 (4.00-5.30) 2.05 MIL/MM3 (4.00-5.30) Hemoglobin 7.2 GM/DL (11.6-15.3) 7.2 GM/DL (11.6-15.3) 8.5 GM/DL (11.6-15.3) Hematocrit 20.6 % (35.0-46.0) 21.0 % (35.0-46.0) 24.1 % (35.0-46.0) Mean Corpuscular Volume 126.0 FL (80.0-100.0) 126.4 FL (80.0-100.0) 117.6 FL (80.0-100.0) Mean Corpuscular Hemoglobin 44.1 PG (27.0-34.0) 43.5 PG (27.0-34.0) 41.5 PG (27.0-34.0) Red Cell Distribution Width 18.5 % (11.6-17.2) 18.8 % (11.6-17.2) 25.1 % (11.6-17.2) Platelet Count 52 TH/MM3 (150-450) 56 TH/MM3 (150-450) 46 TH/MM3 (150-450) Monocytes (%) (Auto) 19.7 % (0.0-8.0) 19.5 % (0.0-8.0) 21.1 % (0.0-8.0) Lymphocytes # (Auto) 0.7 TH/MM3 (1.0-4.8) 0.9 TH/MM3 (1.0-4.8) Monocytes % 16 % (0-8) Nucleated Red Blood Cells 1 /100 WBC (0-0) 1 /100 WBC (0-0) Platelet Estimate LOW (NORMAL) LOW (NORMAL) LOW (NORMAL) Prothrombin Time 33.5 SEC (9.8-11.6) 34.3 SEC (9.8-11.6) 34.3 SEC (9.8-11.6) Creatinine 1.01 MG/DL (0.50-1.00) 1.15 MG/DL (0.50-1.00) Sodium Level 128 MEQ/L (136-145) 126 MEQ/L (136-145) 128 MEQ/L (136-145) Estimat Glomerular Filtration Rate 68 ML/MIN (>89) 59 ML/MIN (>89) 75 ML/MIN (>89) Total Iron Binding Capacity 118 MCG/DL (250-450) Percent Iron Saturation 85.9 % (20-50) Ferritin 648 NG/ML (8-252) Vitamin B12 Level GREATER THAN 2000 PG/ML Monocytes # (Auto) 1.1 TH/MM3 (0-0.9) 1.1 TH/MM3 (0-0.9) Neutrophils % (Manual) 85 % (16-70) Polychromasia 2.0 % (0.0-1.9) Target Cells 1+ (NORMAL) 1+ (NORMAL) Random Glucose 68 MG/DL (74-106) 59 MG/DL (74-106) Albumin 2.2 GM/DL (3.4-5.0) 2.4 GM/DL (3.4-5.0) Alkaline Phosphatase 136 U/L (45-117) Aspartate Amino Transf (AST/SGOT) 204 U/L (15-37) 197 U/L (15-37) Alanine Aminotransferase (ALT/SGPT) 98 U/L (10-53) 92 U/L (10-53) Total Bilirubin 9.9 MG/DL (0.2-1.0) 14.7 MG/DL (0.2-1.0) Chloride Level 97 MEQ/L (98-107) Carbon Dioxide Level 20.7 MEQ/L (21.0-32.0) Potassium Level 5.3 MEQ/L (3.5-5.1) Imaging Last Impressions Cyst Biopsy Asp-Paracentesis US 03/09/17 0000 Signed Impressions: Service Date/Time: Thursday, March 09, 2017 16:24 - CONCLUSION: Uncomplicated ultrasound guided paracentesis. Pavan Elena MD Chest X-Ray 03/08/17 194 Signed Impressions: Service Date/Time: Wednesday, March 08, 2017 19:46 - CONCLUSION: No acute disease. Gildardo Pace MD PE at Discharge GENERAL: This is a 56 year old female who appears older than stated age with chronic ascites, in no acute distress CARDIOVASCULAR: Regular rate and rhythm RESPIRATORY: Clear to auscultation. Breath sounds equal bilaterally. GASTROINTESTINAL: Abdomen soft, distended with normoactive BS MUSCULOSKELETAL: trace edema in bilateral lower extremities. No calf tenderness. Negative Homans sign bilaterally. NEUROLOGICAL: Awake and alert. Motor and sensory grossly within normal limits. Normal speech. Pt update on day of discharge Feels much better.Eatng well. No n/v/d/c. Feels comfortable to go home. Will have therapeutic paracentesis as oP Hospital Course 56 y/o female with a history of liver cirrhosis, hep c, cva-left sided residual , and esophageal stricture presented to the ED with complaints of abdominal pain. Patient with ascites, transaminitis S/P US guided Paracentesis 8L removed by Dr. Elena IR 03/09. Consult GI for possible catheter placement, seen by Dr Bynres recommends paracentesis q2 weeks, not a transplant candidate also Resume home medications Xifaxan and spirolactone. INR elevated 3.0, however FFP not indicated for cirrhotic patient requiring paracentesis, received vitamin k 5 mg x 1 recheck INR. Was hypotensive received albumin 25g. Had paracentesis, cultires negative, , Na improved. BP improved. With anemoa received 1 U PRBC. H.H stable. Patient improved she was discharged home in stable condition to fu as Op with PCP and consultants. Symptomatic ascites with transaminitis, AST 240, ALT 126 S/P US guided Paracentesis 8L removed by Dr. Elena IR 03/09 Consult GI for possible catheter placement, seen by Dr Byrnes recommends paracentesis q2 weeks, not a transplant candidate also Resume home medications Xifaxan and spirolactone INR elevated 3.0, however FFP not indicated for cirrhotic patient requiring paracentesis, will give vitamin k 5 mg x 1 recheck INR in AM was hypotensive, received albumin 25g this evening. BP stable Hypokalemia resolved Replaced,monitor level and replace as needed CMP in AM Hyponatremia. Sodium 127 on admission today (03/11) Na 126 Chronic. Secondary to cirrhosis continue to monitor. CMP in AM Thrombocytopenia. Chronic at recent baseline. Secondary to cirrhosis. No bleeding. Continue to monitor. Anemia received 1 unit PRBCs 03/11/17 DVT prophylaxis: SCDs Pt Condition on Discharge: Stable Discharge Disposition: Discharge Home Discharge Time: > 30 minutes Discharge Instructions DIET: Follow Instructions for: Heart Healthy Diet Activities you can perform: Regular-No Restrictions Follow up Referrals: Gastroenterology - 1 Week PCP Follow-up - 2-3 Days New Orders: US GUIDED ABDOMEN PARACENTESIS - 1 Week New Medications: Ferrous Sulfate (Ferosul) 325 Mg (65 Mg Iron) Tablet 325 MG PO DAILY for anemia, #30 MG Continued Medications: Furosemide (Furosemide) 40 Mg Tab 40 MG PO DAILY, #30 TAB 0 Refills Lactulose Liq (Lactulose Liq) 10 Gm/15 Ml Soln 15 ML PO Q6H PRN for CONSTIPATION, ML 0 Refills Pantoprazole (Protonix) 40 Mg Tab 40 MG PO DAILY for Reflux, #30 TAB 0 Refills Potassium Chloride ER (Klor-Con 10) 10 Meq Tab 10 MEQ PO DAILY for Electrolyte Replacement, #30 TAB 0 Refills Rifaximin (Xifaxan) 550 Mg Tab 550 MG PO Q12HR for Hepatic encephalopathy, #60 TAB 0 Refills Spironolactone (Spironolactone) 100 Mg Tab 100 MG PO BIDPC, #60 TAB 0 Refills Brionna Arias MD Mar 12, 2017 09:44
== END 2017-03-12 10:37 | disposition home or self-care (01) | DRG 442 ==
LOC: NEPC 19:32 → NEDA 21:46 → NEPFCDU 22:35 → OBSVTOIN 03-09 12:46 → N04A 03-10 19:07
PROVIDERS: ADMIT Hospitalist; ATTEND Hospitalist
PROC: 0W9G3ZZ Drainage of Peritoneal Cavity, Percutaneous Approach (ICD-10-PCS; principal; 2017-03-09)
PROC: 30233N1 Transfusion of Nonautologous Red Blood Cells into Peripheral Vein, Percutaneous Approach (ICD-10-PCS; 2017-03-11)
DX: K72.90 Hepatic failure, unspecified without coma (principal); R18.8 Other ascites; K76.6 Portal hypertension; D69.6 Thrombocytopenia, unspecified; E87.1 Hypo-osmolality and hyponatremia; I69.354 Hemiplegia and hemiparesis following cerebral infarction affecting left non-dominant side; R74.0 Nonspecific elevation of levels of transaminase and lactic acid dehydrogenase [LDH]; K22.2 Esophageal obstruction; B19.20 Unspecified viral hepatitis C without hepatic coma; K74.69 Other cirrhosis of liver; E87.6 Hypokalemia; R04.0 Epistaxis; D64.9 Anemia, unspecified; F17.290 Nicotine dependence, other tobacco product, uncomplicated; K42.9 Umbilical hernia without obstruction or gangrene; I10 Essential (primary) hypertension
CPT/HCPCS: 36430; 49083; 71010; 76937; 80048; 80053; 82042; 82607; 82728; 82746; 83540; 83550; 83690; 83735; 85007; 85025; 85027; 85610; 85730; 86077; 86140; 86850; 86870; 86900; 86901; 86920; 86922; 87070; 87205; 89051; C1729; G8987-GP; G8988-GP; J2270; J2405; J3430; P9016; P9047

== ENCOUNTER 2017-03-13 13:42 | Inpatient (IN) | payer OTHER ==
[~2017-03-13] VITALS: Ht 157.5 cm; Wt 78.2 kg
[~2017-03-13 13:42] MED LIST changes: +FERR325T20 PO
--- NOTE | 2017-03-13 13:58 | PD ---
HPI Chief Complaint: altered mental status Time Seen by Provider: 13:58 Travel History International Travel<30 days: No Contact w/Intl Traveler<30days: No Traveled to known affect area: No History of Present Illness HPI 56-year-old female with history of liver cirrhosis, hep C, ascites was brought in by her friend for altered mental status. Patient was discharged from the hospital yesterday after having a paracentesis done. Patient is confused in person place and time. She seems to be in moderate distress and unable to give any significant history. Her answered to every question was "Yes". The friend says that she went to see him at the residential and noticed that she was confused and insisted that she should come to the emergency room. Vital signs were relatively acceptable. [facility] Past Medical History Narrative Medical List of her past medical, surgical, social and family history is reviewed from the nursing note. Arthritis: Yes Asthma: No Blood Disorders: No Anxiety: No Depression: No Heart Rhythm Problems: No Cancer: No Cardiovascular Problems: Yes (htn) Chemotherapy: No Chest Pain: No Congestive Heart Failure: No Cirrhosis: Yes COPD: No Cerebrovascular Accident: Yes Diabetes: No Diminished Hearing: No Endocrine: No Gastrointestinal Disorders: Yes (ASCITES) Glaucoma: Yes Genitourinary: No Headaches: Yes Hepatitis: Yes (HEP C) Hypertension: Yes (NON COMPLIANT WITh BP MEDS) Immune Disorder: Yes (HEP C) Implanted Vascular Access Dvce: No Musculoskeletal: Yes Neurologic: Yes (cva ) Psychiatric: No ( ) Reproductive: No Respiratory: No Immunizations Current: No Radiation Therapy: No Sleep Apnea: No Thyroid Disease: No Menopausal: Yes : 1 Para: 1 Past Surgical History Abdominal Surgery: Yes (paracentesis q6 months last one 02/25/17, [facility]ERNIA REPAIR ) Other Surgery: No Social History Alcohol Use: No Tobacco Use: Yes (2 CIGARS A DAY ) Substance Use: No Allergies-Medications (Allergen,Severity, Reaction): Coded Allergies: No Known Allergies (Verified , 02/23/17) Comments No known drug allergies. Reported Meds & Prescriptions Reported Meds & Active Scripts Active Ferosul (Ferrous Sulfate) 325 Mg (65 Mg Iron) Tablet 325 Mg PO DAILY Reported Xifaxan (Rifaximin) 550 Mg Tab 550 Mg PO Q12HR Lactulose Liq (Lactulose) 10 Gm/15 Ml Soln 15 Ml PO Q6H PRN Klor-Con 10 (Potassium Chloride) 10 Meq Tab 10 Meq PO DAILY Spironolactone 100 Mg Tab 100 Mg PO BIDPC Furosemide 40 Mg Tab 40 Mg PO DAILY Protonix (Pantoprazole Sodium) 40 Mg Tab 40 Mg PO DAILY Narrative Medication List of her home medications reviewed from the nursing note. Review of Systems ROS Limitations: Altered Mental Status Except as stated in HPI: all other systems reviewed are Neg Neurologic: Positive: Change in Mentation Physical Exam Narrative GENERAL: Confused, disoriented, moderate distress SKIN: Focused skin assessment warm/dry. HEAD: Atraumatic. Normocephalic. EYES: Pupils equal and round. No scleral icterus. No injection or drainage. ENT: No nasal bleeding or discharge. Dry lips and mucous membranes NECK: Trachea midline. No JVD. CARDIOVASCULAR: Regular rate and rhythm. No murmur appreciated. RESPIRATORY: No accessory muscle use. Clear to auscultation. Breath sounds equal bilaterally. GASTROINTESTINAL: Abdomen soft, generalized tenderness to palpation with, distended abdomen with ascites, umbilical hernia that's reducible. Hepatic and splenic margins not palpable. MUSCULOSKELETAL: No obvious deformities. No clubbing. No cyanosis. No edema. NEUROLOGICAL: Awake and alert. No obvious cranial nerve deficits. Motor grossly within normal limits. Normal speech. PSYCHIATRIC: Appropriate mood and affect; insight and judgment normal. Data Data Last Documented VS Vital Signs Date Time Temp Pulse Resp B/P (MAP) Pulse Ox O2 Delivery O2 Flow Rate FiO2 03/13/17 13:59 97.5 85 20 101/59 (73) 97 Room Air Orders Orders Electrocardiogram (03/13/17 13:58) Ammonia (03/13/17 13:58) Complete Blood Count With Diff (03/13/17 13:58) Comprehensive Metabolic Panel (03/13/17 13:58) Creatine Kinase (Cpk) (03/13/17 13:58) Prothrombin Time / Inr (Pt) (03/13/17 13:58) Troponin I (03/13/17 13:58) Urinalysis - C+S If Indicated (03/13/17 13:58) Lactic Acid Sepsis Protocol (03/13/17 13:58) Arterial Blood Gas (Abg) (03/13/17 13:58) Blood Culture (03/13/17 13:58) Chest, Single Ap (03/13/17 13:58) Blood Glucose (03/13/17 13:58) Ecg Monitoring (03/13/17 13:58) Iv Access Insert/Monitor (03/13/17 13:58) Oximetry (03/13/17 13:58) Sodium Chloride 0.9% Flush (Ns Flush) (03/13/17 14:00) Drug Screen, Random Urine (03/13/17 13:58) Alcohol (Ethanol) (03/13/17 13:58) Tylenol (Acetaminophen) (03/13/17 13:58) Salicylates (Aspirin) (03/13/17 13:58) Potassium Chloride Inj (Kcl Inj)... (03/13/17 15:30) Piperacil-Tazo 4.5 Gm Premix (Zosyn 4.5 (03/13/17 15:45) Vancomycin Inj (Vancomycin Inj) (03/13/17 15:45) Lactulose Liq (Lactulose Liq) (03/13/17 16:15) Admit Order (Ed Use Only) (03/13/17 16:13) Labs Laboratory Tests Test 03/13/17 14:05 03/13/17 14:10 03/13/17 14:19 03/13/17 15:15 Blood Gas Puncture Site RT BRACHIAL Blood Gas Patient Temperature 98.6 Blood Gas HCO3 21 mmol/L Blood Gas Base Excess -1.9 mmol/L Blood Gas Oxygen Saturation 96 % Arterial Blood pH 7.50 Arterial Blood Partial Pressure CO2 27 mmHg Arterial Blood Partial Pressure O2 101 mmHG Arterial Blood Oxygen Content 12.1 Vol % Arterial Blood Carboxyhemoglobin 2.3 % Arterial Blood Methemoglobin 0.1 % Blood Gas Hemoglobin 8.8 G/DL Oxygen Delivery Device RA White Blood Count 3.9 TH/MM3 Red Blood Count 2.35 MIL/MM3 Hemoglobin 9.8 GM/DL Hematocrit 28.2 % Mean Corpuscular Volume 119.9 FL Mean Corpuscular Hemoglobin 41.6 PG Mean Corpuscular Hemoglobin Concent 34.7 % Red Cell Distribution Width 24.6 % Platelet Count 55 TH/MM3 Mean Platelet Volume 7.3 FL Neutrophils (%) (Auto) 64.8 % Lymphocytes (%) (Auto) 17.3 % Monocytes (%) (Auto) 17.4 % Eosinophils (%) (Auto) 0.2 % Basophils (%) (Auto) 0.3 % Neutrophils # (Auto) 2.6 TH/MM3 Lymphocytes # (Auto) 0.7 TH/MM3 Monocytes # (Auto) 0.7 TH/MM3 Eosinophils # (Auto) 0.0 TH/MM3 Basophils # (Auto) 0.0 TH/MM3 CBC Comment DIFF FINAL Differential Comment Prothrombin Time 33.5 SEC Prothromb Time International Ratio 2.9 RATIO Blood Urea Nitrogen 10 MG/DL Creatinine 1.15 MG/DL Random Glucose 69 MG/DL Total Protein 8.3 GM/DL Albumin 2.7 GM/DL Calcium Level 10.5 MG/DL Alkaline Phosphatase 124 U/L Aspartate Amino Transf (AST/SGOT) 232 U/L Alanine Aminotransferase (ALT/SGPT) 108 U/L Total Bilirubin 16.0 MG/DL Sodium Level 130 MEQ/L Potassium Level 4.7 MEQ/L Chloride Level 97 MEQ/L Carbon Dioxide Level 22.4 MEQ/L Anion Gap 11 MEQ/L Estimat Glomerular Filtration Rate 59 ML/MIN Lactic Acid Level 4.5 mmol/L Total Creatine Kinase 122 U/L Troponin I 0.02 NG/ML Salicylates Level LESS THAN 1.7 MG/DL Acetaminophen Level LESS THAN 2.0 MCG/ML Ethyl Alcohol Level LESS THAN 3 MG/DL Urine Color DARK-YELLOW Urine Turbidity CLEAR Urine pH 6.5 Urine Specific [place] 1.012 Urine Protein NEG mg/dL Urine Glucose (UA) NEG mg/dL Urine Ketones 10 mg/dL Urine Occult Blood NEG Urine Nitrite NEG Urine Bilirubin MOD Urine Urobilinogen 4.0 MG/DL Urine Leukocyte Esterase TRACE Urine RBC 1 /hpf Urine WBC 2 /hpf Urine Squamous Epithelial Cells <1 /hpf Urine Hyaline Casts 1 /lpf Microscopic Urinalysis Comment CATH-CULT NOT IND Ammonia 70 MCMOL/L [facility] Medical Decision Making Medical Screen Exam Complete: Yes Emergency Medical Condition: Yes Medical Record Reviewed: Yes Interpretation(s) Twelve-lead EKG was reviewed by me. Normal sinus rhythm, normal axis, low voltage, nonspecific ST-T wave changes. Heart rate of 84 bpm. Differential Diagnosis Hyperammonemia, sepsis, SBP Narrative Course 4:05 PM blood test results are back except for the ammonia level which was a be collected. Lactic acid is elevated. I've given her IV Zosyn and vancomycin. Rest of the blood test results are consistent with hepatitis and cirrhosis. Patient's INR is elevated as well. Given the INR and low platelet count she is not a candidate for this and he says at this point. Critical Care Narrative Aggregate critical care time was 45 minutes. Time to perform other separately billable procedures was not included in the critical care time. My time did not include minutes spent treating any other patients simultaneously or on activities that did not directly contribute to the patient's treatment. The services I provided to this patient were to treat and/or prevent clinically significant deterioration that could result in: Sepsis, altered mental status, sepsis protocol for antibiotic I provided critical care services requiring my management, as noted below: Chart data review, documentation time, medication orders and management, vital sign assessments/reviewing monitor data, ordering and reviewing lab tests, ordering and interpreting/reviewing x-rays and diagnostic studies, care of the patient and discussion of the patient with the admitting physicians. Procedures EKG Prior to Arrival: No Sepsis Criteria SIRS Criteria (2 or more): Heart rate over 90, WBC > 82366, < 4000 or > 10% bands Sepsis Criteria (SIRS+source): Infect source susp/known Severe Sepsis (+one): Organ Dysfunction, Lactate >2 Septic Shock Criteria: Lactic acid >=4 Multiple Organ Dysfunction Syn: Evidence -2 organs failing Criteria Outcome: Meets severe sepsis criteria Diagnosis Primary Impression: Altered mental status Qualified Codes: R41.0 - Disorientation, unspecified Additional Impressions: Cirrhosis of liver with ascites Qualified Codes: K74.60 - Unspecified cirrhosis of liver Sepsis Qualified Codes: A41.9 - Sepsis, unspecified organism possible SBP Hyperammonemia Admitting Information Admitting Physician Requests: Tad Friend MD Mar 13, 2017 13:58
[2017-03-13 13:59] VITALS: BP 101/59; PULSE 85; RESP 20; TEMP 97.5; O2SAT 97
[2017-03-13] MEDS ORDERED: SODIUM CHLORIDE 0.9% FLUSH 5 ML FLUSH IV FLUSH PRN (14:00)
[2017-03-13 14:36] LABS: AUTOMATED NEUTROPHIL # 2.6 TH/MM3 (1.8-7.7); BASOPHIL % 0.3 % (0.0-2.0); EOSINOPHIL % 0.2 % (0.0-4.0); HEMATOCRIT 28.2 % (35.0-46.0); HEMOGLOBIN 9.8 GM/DL (11.6-15.3); LYMPH % 17.3 % (9.0-44.0); LYMPHOCYTE # 0.7 TH/MM3 (1.0-4.8); MEAN CELL VOLUME 119.9 FL (80.0-100.0); MEAN CORPUSCULAR HEMOGLOBIN 41.6 PG (27.0-34.0); MEAN CORPUSCULAR HGB CONC 34.7 % (32.0-36.0); MEAN PLATELET VOLUME 7.3 FL (7.0-11.0); MONO % 17.4 % (0.0-8.0); MONOCYTE # 0.7 TH/MM3 (0-0.9); NEUT % 64.8 % (16.0-70.0); PLATELET COUNT 55 TH/MM3 (150-450); RED BLOOD COUNT 2.35 MIL/MM3 (4.00-5.30); RED CELL DISTRIBUTION WIDTH 24.6 % (11.6-17.2); WHITE BLOOD COUNT 3.9 TH/MM3 (4.0-11.0)
[2017-03-13 14:39] LABS: BILIRUBIN, URINE MOD (NEG); BLOOD, URINE NEG (NEG); GLUCOSE,URINE NEG (NEG); HYALINE CAST, URINE 1 /lpf (RARE); KETONE, URINE 10 mg/dL (NEG); NITRITE,URINE NEG (NEG); PH, URINE 6.5 (5.0-8.5); SQUAMOUS EPITHELIAL CELL URINE <1 /hpf (0-5); URINE COLOR DARK-YELLOW (YELLW/STRAW); URINE LEUKOCYTE ESTERASE TRACE (NEG)
--- NOTE | 2017-03-13 14:51 | RADRPT ---
EXAM DATE/TIME: 03/13/2017 14:19 [facility] COMPARISON: CHEST SINGLE AP, March 08, 2017, 19:46. INDICATIONS : Short of breath. MEDICAL HISTORY : Hypercholesterolemia. Cirrhosis. Hypertension. Glaucoma. SURGICAL HISTORY : None. ENCOUNTER: Initial ACUITY: 1 day PAIN SCORE: Non-responsive. LOCATION: Bilateral chest FINDINGS: A single view of the chest demonstrates the lungs to be symmetrically aerated without evidence of mas s, infiltrate or effusion. The cardiomediastinal contours are unremarkable. Osseous structures are intact. CONCLUSION: No evidence of acute cardiopulmonary disease. Urbnao Goldman MD on March 13, 2017 at 14:49 Board Certified Radiologist. This report was verified electronically.
[2017-03-13 15:02] LABS: ALBUMIN 2.7 GM/DL (3.4-5.0); AST (GOT) 232 U/L (15-37); BICARBONATE 22.4 MEQ/L (21.0-32.0); BLOOD UREA NITROGEN 10 MG/DL (7-18); CALCIUM 10.5 MG/DL (8.5-10.1); CHLORIDE 97 MEQ/L (98-107); CREATININE 1.15 MG/DL (0.50-1.00); GLOMERULAR FILTRATION RATE 59 ML/MIN (>89); GLUCOSE,RANDOM 69 MG/DL (74-106); SODIUM (NA) 130 MEQ/L (136-145)
[2017-03-13 15:03] LABS: ALT (GPT) 108 U/L (10-53)
[2017-03-13 15:07] LABS: ALKALINE PHOSPHATASE 124 U/L (45-117); TOTAL PROTEIN 8.3 GM/DL (6.4-8.2); TROPONIN I 0.02 NG/ML (0.02-0.05)
[2017-03-13 15:10] LABS: ACETAMINOPHEN LESS THAN 2.0 MCG/ML (10.0-30.0)
[2017-03-13 15:27] LABS: INTERNATIONAL NORMALIZED RATIO 2.9 RATIO; PROTHROMBIN TIME - PATIENT 33.5 SEC (9.8-11.6)
[2017-03-13] MEDS ORDERED: POTASSIUM CHLORIDE INJ 20 MEQ, SODIUM BICARBONATE 8.4% INJ 50 MEQ in DEXT 5%-NACL 0.45%... IV ONE (15:30)
[2017-03-13 15:31] LABS: LACTIC ACID SEPSIS PROTOCOL 4.5 mmol/L (0.4-2.0)
[2017-03-13] MEDS ORDERED: VANCOMYCIN INJ 1,000 MG in SODIUM CHLOR 0.9% 250 ML INJ 250 ML IV ONE (15:45)
[2017-03-13] MEDS ORDERED: PIPERACIL-TAZO 4.5 GM PREMIX 100 ML IV ONE (15:45)
[2017-03-13] MEDS ORDERED: LACTULOSE SYRUP 20 GM/30 ML CUP PO ONE (16:15)
[2017-03-13] MEDS ORDERED: ONDANSETRON HCL 4 MG/2 ML VIAL IVP PRN (16:30)
[2017-03-13] MEDS ORDERED: LACTULOSE SYRUP 20 GM/30 ML CUP PO PRN (16:30)
[2017-03-13] MEDS ORDERED: BISACODYL 10 MG SUPP RECTAL PRN (16:30)
[2017-03-13] MEDS ORDERED: MAGNESIUM HYDROXIDE SUSP 30 ML CUP PO PRN (16:30)
[2017-03-13] MEDS ORDERED: SENNOSIDES 8.6 MG TAB PO PRN (16:30)
[2017-03-13] MEDS ORDERED: NALOXONE HCL 0.4 MG/ML AMP IV PUSH PRN (16:30)
[2017-03-13] MEDS ORDERED: SODIUM CHLORIDE 0.9% FLUSH 10 ML FLUSH IV FLUSH PRN (16:30)
[2017-03-13] MEDS ORDERED: SODIUM CHLOR 0.9% 1000 ML INJ 1,000 ML IV ONE (16:45)
--- NOTE | 2017-03-13 17:04 | HHI.HP ---
HPI Service [facility] Primary Care Physician Unknown Admission Diagnosis altered mental status, sepsis, hyperammonemia Diagnoses: Travel History International Travel<30 Days: No Contact w/Intl Traveler <30 Da: No Traveled to Known Affected Are: No History of Present Illness Pt was recently discharged on 03/12/17. Hospital course prior to this admission was the following. 56 y/o female with a history of liver cirrhosis, hep c, cva-left sided residual , and esophageal stricture presented to the ED with complaints of abdominal pain , ascites, transaminitis S/P US guided Paracentesis 8L removed by Dr. Elena IR on 03/09. GI evaluated the patient for possible catheter placement, was seen by Dr Byrnes who recommended paracentesis q2 weeks, and pt was deemed not a transplant candidate. Pt received Vit K 5mg and INR today is 2.9, however FFP is not indicated for cirrhotic patient requiring paracentesis, pt received albumin 25g due to hypotension. cultures from paracentesis were found to be negative, Na improved to 130. BP improved. Pt was transfused 1 U PRBC. Pt was discharged on home medications Xifaxan and spirolactone, lasix, protonix and lactulose. Pt unfortunately was readmitted today because friend found pt altered, yelled at RN at nursing school and complaining of abdominal pain. Pt is a poor historian and at first only answers "yes" to all of my questions. Per ED physician and RN, pt was brought in for AMS. Pt finally was able to tell me that she has abdominal pain and is very tender w palpation. I wasn't able to get more history from her. Review of Systems ROS Limitations: Altered Mental Status, Poor Historian Except as stated in HPI: all other systems reviewed are Neg Past Family Social History Past Medical History Per EMR: Hypertension, end-stage liver disease, hepatitis C, CVA, esophageal stricture Past Surgical History Per EMR: Multiple paracentesis, EGD with esophageal dilatation. Reported Medications Reported Meds & Active Scripts Active Ferosul (Ferrous Sulfate) 325 Mg (65 Mg Iron) Tablet 325 Mg PO DAILY Reported Xifaxan (Rifaximin) 550 Mg Tab 550 Mg PO Q12HR Lactulose Liq (Lactulose) 10 Gm/15 Ml Soln 15 Ml PO Q6H PRN Klor-Con 10 (Potassium Chloride) 10 Meq Tab 10 Meq PO DAILY Spironolactone 100 Mg Tab 100 Mg PO BIDPC Furosemide 40 Mg Tab 40 Mg PO DAILY Protonix (Pantoprazole Sodium) 40 Mg Tab 40 Mg PO DAILY Allergies: Coded Allergies: No Known Allergies (Verified , 02/23/17) Family History Mother with history of stomach cancer Social History Smokes 2-3 cigars a day, no alcohol or illegal drug use documented in EMR at last admission Physical Exam Vital Signs Vital Signs Date Time Temp Pulse Resp B/P (MAP) Pulse Ox O2 Delivery O2 Flow Rate FiO2 03/13/17 13:59 97.5 85 20 101/59 (73) 97 Room Air Physical Exam GENERAL: female being on her left side. Appears uncomfortable. SKIN: No rashes, ecchymoses or lesions. Cool and dry. HEAD: Atraumatic. Normocephalic. No temporal or scalp tenderness. EYES: Pupils equal round and reactive. Extraocular motions intact. No scleral icterus. No injection or drainage. ENT: Nose without drainage. Airway patent. NECK: Trachea midline. CARDIOVASCULAR: Regular rate and rhythm without murmurs RESPIRATORY: Clear to auscultation. Breath sounds equal bilaterally. No wheezes GASTROINTESTINAL: Abdomen distended, tender with palpation, some voluntary guarding but no rebound. Abdominal hernia palpated and easily reducible. NEUROLOGICAL/MUSCULOSKELETAL: Extremities without edema. Able to follow some commands such as moving her extremities but I have to repeat on multiple occasions for her to do so. knowns she is in the hospital but cannot tell me year or month. Laboratory Laboratory Tests Test 03/13/17 14:05 03/13/17 14:10 03/13/17 14:19 03/13/17 15:15 Blood Gas Puncture Site RT BRACHIAL Blood Gas Patient Temperature 98.6 Blood Gas HCO3 21 Blood Gas Base Excess -1.9 Blood Gas Oxygen Saturation 96 Arterial Blood pH 7.50 Arterial Blood Partial Pressure CO2 27 Arterial Blood Partial Pressure O2 101 Arterial Blood Oxygen Content 12.1 Arterial Blood Carboxyhemoglobin 2.3 Arterial Blood Methemoglobin 0.1 Blood Gas Hemoglobin 8.8 Oxygen Delivery Device RA White Blood Count 3.9 Red Blood Count 2.35 Hemoglobin 9.8 Hematocrit 28.2 Mean Corpuscular Volume 119.9 Mean Corpuscular Hemoglobin 41.6 Mean Corpuscular Hemoglobin Concent 34.7 Red Cell Distribution Width 24.6 Platelet Count 55 Mean Platelet Volume 7.3 Neutrophils (%) (Auto) 64.8 Lymphocytes (%) (Auto) 17.3 Monocytes (%) (Auto) 17.4 Eosinophils (%) (Auto) 0.2 Basophils (%) (Auto) 0.3 Neutrophils # (Auto) 2.6 Lymphocytes # (Auto) 0.7 Monocytes # (Auto) 0.7 Eosinophils # (Auto) 0.0 Basophils # (Auto) 0.0 CBC Comment DIFF FINAL Differential Comment Prothrombin Time 33.5 Prothromb Time International Ratio 2.9 Blood Urea Nitrogen 10 Creatinine 1.15 Random Glucose 69 Total Protein 8.3 Albumin 2.7 Calcium Level 10.5 Alkaline Phosphatase 124 Aspartate Amino Transf (AST/SGOT) 232 Alanine Aminotransferase (ALT/SGPT) 108 Total Bilirubin 16.0 Sodium Level 130 Potassium Level 4.7 Chloride Level 97 Carbon Dioxide Level 22.4 Anion Gap 11 Estimat Glomerular Filtration Rate 59 Lactic Acid Level 4.5 Total Creatine Kinase 122 Troponin I 0.02 Salicylates Level LESS THAN 1.7 Acetaminophen Level LESS THAN 2.0 Ethyl Alcohol Level LESS THAN 3 Urine Color DARK-YELLOW Urine Turbidity CLEAR Urine pH 6.5 Urine Specific [place] 1.012 Urine Protein NEG Urine Glucose (UA) NEG Urine Ketones 10 Urine Occult Blood NEG Urine Nitrite NEG Urine Bilirubin MOD Urine Urobilinogen 4.0 Urine Leukocyte Esterase TRACE Urine RBC 1 Urine WBC 2 Urine Squamous Epithelial Cells <1 Urine Hyaline Casts 1 Microscopic Urinalysis Comment CATH-CULT NOT IND Urine Opiates Screen NEG Urine Barbiturates Screen NEG Urine Amphetamines Screen NEG Urine Benzodiazepines Screen NEG Urine Cocaine Screen NEG Urine Cannabinoids Screen NEG Ammonia 70 Date/Time Source Procedure Growth Status 03/13/17 14:10 Blood Peripheral Aerobic Blood Culture Pending Received 03/13/17 14:10 Blood Peripheral Anaerobic Blood Culture Pending Received Result Diagram: 03/13/17 1410 03/13/17 1410 Imaging Last Impressions Chest X-Ray 03/13/17 1358 Signed Impressions: Service Date/Time: Wednesday, March 13, 2017 14:19 - CONCLUSION: No evidence of acute cardiopulmonary disease. MD Denys Lewis VTE Risk Assessment Caprini VTE Risk Assessment: Mod/High Risk (score >= 2) Caprini Risk Assessment Model Point Value = 1 Point Value = 2 Point Value = 3 Point Value = 5 Age 41-60 Minor surgery BMI > 25 kg/m2 Swollen legs Varicose veins or History of unexplained or recurrent spontaneous Oral contraceptives or hormone replacement Sepsis (< 1 month) Serious lung disease, including pneumonia (< 1 month) Abnormal pulmonary function Acute myocardial infarction Congestive heart failure (< 1 month) History of inflammatory bowel disease Medical patient at bed rest Age 61-74 Arthroscopic surgery Major open surgery (> 45 min) Laparoscopic surgery (> 45 min) Malignancy Confined to bed (> 72 hours) Immobilizing plaster cast Central venous access Age >= 75 History of VTE Family history of VTE Factor V Leiden Prothrombin [id number] Lupus anticoagulant Anticardiolipin antibodies Elevated serum homocysteine Heparin-induced thrombocytopenia Other congenital or acquired thrombophilia Stroke (< 1 month) Elective arthroplasty Hip, pelvis, or leg fracture Acute spinal cord injury (< 1 month) Prophylaxis Regimen Total Risk Factor Score Risk Level Prophylaxis Regimen 0-1 Low Early ambulation 2 Moderate Order ONE of the following: *Sequential Compression Device (SCD) *Heparin 5000 units SQ BID 3-4 Higher Order ONE of the following medications: *Heparin 5000 units SQ TID *Enoxaparin/Lovenox 40 mg SQ daily (WT < 150 kg, CrCl > 30 mL/min) *Enoxaparin/Lovenox 30 mg SQ daily (WT < 150 kg, CrCl > 10-29 mL/min) *Enoxaparin/Lovenox 30 mg SQ BID (WT < 150 kg, CrCl > 30 mL/min) AND/OR *Sequential Compression Device (SCD) 5 or more Highest Order ONE of the following medications: *Heparin 5000 units SQ TID (Preferred with Epidurals) *Enoxaparin/Lovenox 40 mg SQ daily (WT < 150 kg, CrCl > 30 mL/min) *Enoxaparin/Lovenox 30 mg SQ daily (WT < 150 kg, CrCl > 10-29 mL/min) *Enoxaparin/Lovenox 30 mg SQ BID (WT < 150 kg, CrCl > 30 mL/min) AND *Sequential Compression Device (SCD) Assessment and Plan Assessment and Plan Symptomatic ascites with transaminitis, AST 232, ALT 108 today. S/P US guided Paracentesis 8L removed by Dr. Elena IR 03/09 Patient received a dose of Zosyn and vancomycin with concerns for SBP. Blood cultures were drawn which are pending. peritoneal fluid final cultures were negative. We will check an ultrasound of the abdomen to see if enough ascites for drainage. Consider paracentesis in the morning if INR is appropriate. Hold off on continuing antibiotics for now. I will reconsult Consult GI for further recommendation as patient is continuing to have abdominal pain and distention. INR is 2.9. We'll give dose of vitamin K 5 mg 1 now and repeat INR in the morning. Previous GI recommendations were for paracentesis q2 weeks, she is not a transplant candidate I have resumed her home medications including Xifaxan, Lasix and spirolactone. Ammonia level found to be 70. Increased dose of lactulose to 30 mL to 6 hours. Repeat ammonia level in the morning. During last hospitalization she was hypotensive and received albumin 25g this evening. BP stable Hypokalemia Stable. Monitor CMP Hyponatremia. Sodium 130 on admission today .Chronic. Improved compared to yesterday. Secondary to cirrhosis continue to monitor. CMP in AM Thrombocytopenia. Chronic at recent baseline. Improved at 55. Secondary to cirrhosis. No bleeding. Continue to monitor. Anemia s/p 1 unit PRBCs 03/11/17 DVT prophylaxis: SCDs Code Status full for now as pt cannot make decisions at this time Discussed Condition With ER physician and Kay Mayer MD Mar 13, 2017 17:04
[2017-03-13] MEDS ORDERED: PHYTONADIONE 5 MG TAB PO ONE (17:15)
[2017-03-13 17:45] VITALS: BP 130/63; PULSE 85; RESP 17; TEMP 97.6; O2SAT 98
[2017-03-13 18:16] LABS: INTERNATIONAL NORMALIZED RATIO 3.2 RATIO; PROTHROMBIN TIME - PATIENT 37.8 SEC (9.8-11.6)
[2017-03-13 18:28] VITALS: BP 122/56; PULSE 84; RESP 20; TEMP 97.5; O2SAT 98
[2017-03-13] MEDS: SPIRONOLACTONE 100 MG TAB PO SCH (18:37)
[2017-03-13] MEDS: LACTULOSE SYRUP 20 GM/30 ML CUP PO SCH ×2 (18:37→21:38)
--- NOTE | 2017-03-13 19:34 | RADRPT ---
EXAM DATE/TIME: 03/13/2017 19:04 [facility] COMPARISON: US ABDOMEN - LOWER LIMITED, January 28, 2016, 13:51. INDICATIONS : Ascites. MEDICAL HISTORY : Hypercholesterolemia. Cirrhosis. Hepatitis C. Hypertension. Glaucoma. CVA. SURGICAL HISTORY : Hernia repair. Paracentesis. ENCOUNTER: Subsequent ACUITY: 4-6 days PAIN SCORE: 7/10 LOCATION: Abdomen. AREA EVALUATED: Quadrants. FINDINGS: Imaging of the abdomen and pelvis was performed to evaluate for ascites. A large amount of ascites is present. CONCLUSION: Large volume ascites. Noble Kidd MD on March 13, 2017 at 19:31 Board Certified Radiologist. This report was verified electronically.
[2017-03-13 20:00] VITALS: BP 150/58; PULSE 84; RESP 18; TEMP 97.4; O2SAT 99
[2017-03-13] MEDS: SODIUM CHLORIDE 0.9% FLUSH 10 ML FLUSH IV FLUSH SCH (21:00)
[2017-03-13] MEDS: RIFAXIMIN 550 MG TAB PO SCH (21:38)
[2017-03-13] MEDS: DOCUSATE SODIUM 50 MG/SENNA 8.6 MG TAB PO SCH (21:38)
[2017-03-14] VITALS (11 sets, daily range): BP systolic 64–146; BP diastolic 40–72; PULSE 62–95; RESP 16–30; TEMP 97.3–98.7; O2SAT 97–100
[2017-03-14 08:31] LABS: LACTIC ACID SEPSIS PROTOCOL 2.5 mmol/L (0.4-2.0)
[2017-03-14 08:41] LABS: ALKALINE PHOSPHATASE 108 U/L (45-117); TOTAL BILIRUBIN ADULT 14.3 MG/DL (0.2-1.0); TOTAL PROTEIN 7.4 GM/DL (6.4-8.2)
[2017-03-14 08:47] LABS: ALBUMIN 2.3 GM/DL (3.4-5.0); ALT (GPT) 104 U/L (10-53); AST (GOT) 229 U/L (15-37); BICARBONATE 20.5 MEQ/L (21.0-32.0); BLOOD UREA NITROGEN 9 MG/DL (7-18); CALCIUM 10.1 MG/DL (8.5-10.1); CHLORIDE 102 MEQ/L (98-107); CREATININE 1.03 MG/DL (0.50-1.00); GLOMERULAR FILTRATION RATE 67 ML/MIN (>89); GLUCOSE,RANDOM 70 MG/DL (74-106); SODIUM (NA) 132 MEQ/L (136-145)
[2017-03-14 08:55] LABS: HEMATOCRIT 25.3 % (35.0-46.0); MEAN CELL VOLUME 122.8 FL (80.0-100.0); MEAN CORPUSCULAR HEMOGLOBIN 43.8 PG (27.0-34.0); MEAN CORPUSCULAR HGB CONC 35.6 % (32.0-36.0); MEAN PLATELET VOLUME 7.8 FL (7.0-11.0); PLATELET COUNT 44 TH/MM3 (150-450); RED BLOOD COUNT 2.06 MIL/MM3 (4.00-5.30); RED CELL DISTRIBUTION WIDTH 24.9 % (11.6-17.2)
[2017-03-14] MEDS: FERROUS SULFATE 325 MG (65 MG ELEMENTAL IRON) TAB PO SCH (08:55)
[2017-03-14] MEDS: LACTULOSE SYRUP 20 GM/30 ML CUP PO SCH ×3 (08:55→21:00)
[2017-03-14] MEDS: SPIRONOLACTONE 100 MG TAB PO SCH (08:55)
[2017-03-14] MEDS: RIFAXIMIN 550 MG TAB PO SCH ×2 (08:56→21:00)
[2017-03-14] MEDS: SODIUM CHLORIDE 0.9% FLUSH 10 ML FLUSH IV FLUSH SCH ×2 (08:56→21:00)
[2017-03-14] MEDS: DOCUSATE SODIUM 50 MG/SENNA 8.6 MG TAB PO SCH ×2 (08:56→21:00)
[2017-03-14] MEDS ORDERED: FUROSEMIDE 40 MG TAB PO SCH (09:00)
[2017-03-14] MEDS ORDERED: PANTOPRAZOLE SOD 40 MG DELAYED RELEASE TAB PO SCH (09:00)
--- NOTE | 2017-03-14 09:05 | EKG ---
Date Performed: 03/13/2017 Time Performed: 14:30:12 PTAGE: 56 years EKG: Sinus rhythm WITH SHORT RI INTERVAL NONSPECIFIC T-WAVE ABNORMALITY Compared to prior tracing no significant park e BORDERLINE ECG PREVIOUS TRACING : 02/23/2017 23.11 DOCTOR: Devan Nixon Interpretating Date/Time 03/14/2017 09:04:39
--- NOTE | 2017-03-14 09:05 | EKG ---
Date Performed: 03/13/2017 Time Performed: 14:30:12 PTAGE: 56 years EKG: Sinus rhythm WITH SHORT NM INTERVAL NONSPECIFIC T-WAVE ABNORMALITY Compared to prior tracing no significant park e BORDERLINE ECG PREVIOUS TRACING : 02/23/2017 23.11 DOCTOR: Devan Nixon Interpretating Date/Time 03/14/2017 09:04:39
--- NOTE | 2017-03-14 09:05 | EKG ---
Date Performed: 03/13/2017 Time Performed: 14:30:12 PTAGE: 56 years EKG: Sinus rhythm WITH SHORT OH INTERVAL NONSPECIFIC T-WAVE ABNORMALITY Compared to prior tracing no significant park e BORDERLINE ECG PREVIOUS TRACING : 02/23/2017 23.11 DOCTOR: Devan Nixon Interpretating Date/Time 03/14/2017 09:04:39
--- NOTE | 2017-03-14 09:39 | HHI.PR ---
Subjective Remarks Patient seen and examined this am. Yelling because of abdominal pain. She reports she cant sleep because of her abdominal pain. Wants to know if she can have paracentesis. She denies CP or SOB. Nurse reports patient has been confused and only orientated to self. Objective Vital Signs Date Time Temp Pulse Resp B/P (MAP) Pulse Ox O2 Delivery O2 Flow Rate FiO2 03/14/17 09:17 97.5 91 16 99/51 (67) 98 03/14/17 04:00 97.6 62 18 113/55 (74) 99 03/14/17 04:00 97.6 62 18 113/55 (74) 99 03/14/17 00:00 95 20 110/64 (79) 99 03/13/17 20:00 97.4 84 18 150/58 (88) 99 03/13/17 18:28 97.5 84 20 122/56 (78) 98 03/13/17 17:51 03/13/17 17:45 97.6 85 17 130/63 (85) 98 Room Air 03/13/17 13:59 97.5 85 20 101/59 (73) 97 Room Air I/O 03/13/17 03/13/17 03/13/17 03/14/17 03/14/17 03/14/17 07:00 15:00 23:00 07:00 15:00 23:00 Intake Total 250 ml Balance 250 ml Intake IV Total 250 ml # Voids 3 # Bowel Movements 1 Result Diagram: 03/13/17 1410 03/14/17 0747 Imaging Last Impressions Chest X-Ray 03/13/17 1358 Signed Impressions: Service Date/Time: Monday, March 13, 2017 14:19 - CONCLUSION: No evidence of acute cardiopulmonary disease. Urbano Goldman MD Abdomen Ultrasound 03/13/17 0000 Signed Impressions: Service Date/Time: Monday, March 13, 2017 19:04 - CONCLUSION: Large volume ascites. Noble Kidd MD Objective Remarks GENERAL: thin woman, appears older than states age SKIN: Warm and dry. HEAD: Normocephalic. EYES:+ scleral icterus. NECK: Supple, trachea midline. No JVD or lymphadenopathy. CARDIOVASCULAR: Regular rate and rhythm without murmurs, gallops, or rubs. RESPIRATORY: Breath sounds equal bilaterally. No accessory muscle use. GASTROINTESTINAL: Significantly distended, diffusely tender, +BS all 4 quadrants. MUSCULOSKELETAL: No cyanosis, or edema. No calf tenderness. A/P Problem List: (1) Hepatitis C, chronic ICD Code: B18.2 - Hepatitis C, chronic Status: Chronic (2) Abdominal pain ICD Code: R10.9 - Unspecified abdominal pain (3) Cirrhosis of liver with ascites ICD Code: K74.60 - Cirrhosis of liver with ascites Status: Chronic (4) Altered mental status ICD Code: R41.82 - Altered mental status, unspecified Status: Acute Assessment and Plan Female patient with medical history significant for liver cirrhosis, hep C, CVA with left-sided residual deficit, and esophageal stricture presented to ED for AMS, found to have recurrent ascites. Symptomatic ascites with transaminitis, concern for SBP - Status post paracentesis 8 L removed on 03/09/2017, cultures at that time were negative for infection. - The patient initially received vancomycin and Zosyn in the ER for SBP. - She is without leukocytosis or fever, but given her lactic acidosis we'll continue her on vancomycin and Zosyn until culture result - Patient was previously seen by GI who recommended paracentesis Q2 weeks because she was not a candidate for liver transplant. -Continue home medications which include Xifaxan, Lasix, and spironolactone - US guided paracentesis ordered, therapeutic, with culture. Her INR is 3.2, will have to be <2 in order to obtain - morphine 2 g IV q6 prn abdominal pain, nurse reports this helped Electrolyte abnormality: hyponatremia Thrombocytopenia: At baseline. Anemia: Macrocytic. Patient received 1 unit packed red blood cells on 2016. Hemoglobin currently stable. DVT prophylaxis: SCDs Discharge Planning We will need a paracentesis, this can't be done until INR is less than 2. Problem Qualifiers (1) Cirrhosis of liver with ascites: Qualified Codes: K74.60 - Unspecified cirrhosis of liver (2) Altered mental status: Qualified Codes: R41.0 - Disorientation, unspecified Raya Boucher MD Mar 14, 2017 09:39
[2017-03-14] MEDS ORDERED: cefTRIAXone INJ 1,000 MG in SODIUM CHLORIDE 0.9% INJ 100 ML IV SCH (09:45)
[2017-03-14] MEDS ORDERED: Vancomycin Consult Pharmacy 1 EA OTHER SCH (09:45)
[2017-03-14] MEDS ORDERED: VANCOMYCIN INJ 1,000 MG in SODIUM CHLOR 0.9% 250 ML INJ 250 ML IV SCH (09:45)
[2017-03-14] MEDS: MORPHINE SULFATE 2 MG/ML INJ IV PUSH PRN ×3 (10:00→15:51)
[2017-03-14] MEDS: PIPERACIL-TAZO 3.375 GM PREMIX 50 ML IV SCH (10:25)
[2017-03-14 11:03] LABS: BANDS 2 % (0-6); BASOPHILS 1 % (0-2); CORRECTED NUCLEATED RBC 1 /100 WBC (0-0); LYMPHOCYTES 15 % (9-44); MONOCYTES 14 % (0-8); NEUTROPHIL # MANUAL DIFF 3.5 TH/MM3 (1.8-7.7); NUCLEATED RED BLOOD CELL 1 (0-0); POLYS (SEG NEUTROPHILS) 68 % (16-70)
[2017-03-14 11:04] LABS: POLYCHROMASIA 2.4 % (0.0-1.9)
[2017-03-14 11:05] LABS: OVALOCYTES 1+ (NORMAL)
[2017-03-14] MEDS ORDERED: DIATRIZOATE MEGLUM/DIATRIZOATE SOD 9 ML CUP PO ONE (14:45)
[2017-03-14] MEDS ORDERED: SODIUM CHLOR 0.9% 250 ML INJ 250 ML IV ONE (15:45)
[2017-03-14] MEDS ORDERED: VANCOMYCIN 1,000 MG/NS 250 ML IV SCH ×2 (16:00)
[2017-03-14] MEDS: ALBUMIN 25% INJ 100 ML IV SCH (16:41)
[2017-03-14] MEDS ORDERED: SODIUM CHLOR 0.9% 1000 ML INJ 1,000 ML IV ONE (16:45)
--- NOTE | 2017-03-14 17:05 | HHI.PR ---
Addendum to Inpatient Note Addendum Reason: Additional Documentation Additional Information Notified by RN patient BP is low, 78/50, 80/50. Patient was seen and examined. She C/O abdominal pain and has been moaning. Explained with patient that we will give her pain medication once her BP has improved. NS bolus ordered. Albumin 25% ordered. Mondragon catheter insertion ordered. patient con't to have low BP 69/42, 70/40's. Awake and alert, complaints of pain. Discuss with Dr. Boucher. Patient is to have paracentesis today but because of elevated INR, thrombocytopenia possibly all related to her liver failure it was postponed until it corrected. Patient is not stable to stay in the unit. Will transfer to [facility] [place]. Spoke with Dr. Clement regarding patient's case and condition. They will accept transfer of care. Notified nurse and Charge nurse of the transfer. Orders placed. Brennan Mc Mar 14, 2017 17:05
--- NOTE | 2017-03-14 17:05 | HHI.PR ---
Addendum to Inpatient Note Addendum Reason: Additional Documentation Additional Information Notified by RN patient BP is low, 78/50, 80/50. Patient was seen and examined. She C/O abdominal pain and has been moaning. Explained with patient that we will give her pain medication once her BP has improved. NS bolus ordered. Albumin 25% ordered. Mondragon catheter insertion ordered. patient con't to have low BP 69/42, 70/40's. Awake and alert, complaints of pain. Discuss with Dr. Boucher. Patient is to have paracentesis today but because of elevated INR, thrombocytopenia possibly all related to her liver failure it was postponed until it corrected. Patient is not stable to stay in the unit. Will transfer to [facility] [place]. Spoke with Dr. Clement regarding patient's case and condition. They will accept transfer of care. Notified nurse and Charge nurse of the transfer. Orders placed. Brennan Mc Mar 14, 2017 17:05
--- NOTE | 2017-03-14 17:05 | HHI.PR ---
Addendum to Inpatient Note Addendum Reason: Additional Documentation Additional Information Notified by RN patient BP is low, 78/50, 80/50. Patient was seen and examined. She C/O abdominal pain and has been moaning. Explained with patient that we will give her pain medication once her BP has improved. NS bolus ordered. Albumin 25% ordered. Mondragon catheter insertion ordered. patient con't to have low BP 69/42, 70/40's. Awake and alert, complaints of pain. Discuss with Dr. Boucher. Patient is to have paracentesis today but because of elevated INR, thrombocytopenia possibly all related to her liver failure it was postponed until it corrected. Patient is not stable to stay in the unit. [place] transfer [place] [facility] [place]. Spoke with Dr. Cleemnt regarding patient's case and condition. They will accept transfer of care. Notified nurse and Charge nurse of the transfer. Orders placed. Brennan Mc Mar 14, 2017 17:05
[2017-03-14] MEDS ORDERED: HYDROmorphone HCL PF 1 MG/ML VIAL IV PUSH PRN (18:45)
[2017-03-14] MEDS ORDERED: TERBUTALINE INJ 1 MG/ML AMP SQ PRN (18:45)
[2017-03-14] MEDS ORDERED: CHLORHEXIDINE GLUCONATE 2 % 1 PACK (2 CLOTHS)(extra cloths) TOPICAL PRN (22:15)
[2017-03-14] MEDS ORDERED: VASOPRESSIN INJ 40 UNITS in DEXTROSE 5% IN WATER 100ML INJ 98 ML IV SCH ×2 (23:11)
--- NOTE | 2017-03-14 23:12 | PD.CONS ---
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 Kassy WARREN on 03/09. GI evaluated the patient for possible catheter placement, was seen by Dr Byrnes who recommended paracentesis q2 weeks, and the patient was deemed not a transplant candidate. Patient has received Vit K 5mg and INR today is 2.9, she also received albumin 25g due to hypotension. Up to date cultures from paracentesis were found to be negative, Na improved to 130. BP improved. She was also transfused 1 U PRBC and was discharged on home medications Xifaxan and spirolactone, lasix, protonix and lactulose. She has returned to emergency department because her friend at the retirement she came to visit noticed that she was altered, yelled at RN at a retirement complaining of abdominal pain. She was readmitted due to altered mental status, initially to hospitalist service, however due to worsening altered mental status and hypotension she was transferred to ICU under critical care service. After transfusion of FFP's and platelets I have placed a paracentesis catheter with attempt to remove the fluid. There is a large amount of ascitic fluid seen on the ultrasound at the bedside however fluid drained from abdominal cavity is brown/red appearing like an old blood. The drainage was stopped after removal of 200 MLS of hemorrhagic ascitic fluid due to patient's intolerance and hypotension. She was taken emergently to CAT scan which shows only end-stage liver disease with large ascitic fluid. Review of Systems ROS Unobtainable patient is altered Past Family Social History Allergies: Coded Allergies: No Known Allergies (Verified , 02/23/17) Past Medical History Hypertension, end-stage liver disease, hepatitis C, CVA, esophageal stricture Past Surgical History Multiple paracentesis, EGD with esophageal dilatation. Reported Medications Reported Meds & Active Scripts Active Ferosul (Ferrous Sulfate) 325 Mg (65 Mg Iron) Tablet 325 Mg PO DAILY Reported Xifaxan (Rifaximin) 550 Mg Tab 550 Mg PO Q12HR Lactulose Liq (Lactulose) 10 Gm/15 Ml Soln 15 Ml PO Q6H PRN Klor-Con 10 (Potassium Chloride) 10 Meq Tab 10 Meq PO DAILY Spironolactone 100 Mg Tab 100 Mg PO BIDPC Furosemide 40 Mg Tab 40 Mg PO DAILY Protonix (Pantoprazole Sodium) 40 Mg Tab 40 Mg PO DAILY Active Ordered Medications Current Medications Medications (Trade) Dose Ordered Sig/Aleisha Route PRN Reason Start Time Stop Time Status Last Admin Dose Admin Sodium Chloride (NS Flush) 2 ml UNSCH PRN IV FLUSH FLUSH AFTER USING IV ACCESS 03/13/17 16:30 Sodium Chloride (NS Flush) 2 ml BID IV FLUSH 03/13/17 21:00 03/14/17 08:56 Ondansetron HCl (Zofran Inj) 4 mg Q6H PRN IVP NAUSEA OR VOMITING 03/13/17 16:30 Naloxone HCl (Narcan Inj) 0.4 mg UNSCH PRN IV PUSH SEE LABEL COMMENTS 03/13/17 16:30 Senna/Docusate Sodium (Ioana-Colace) 1 tab BID PO 03/13/17 21:00 03/13/17 21:38 Magnesium Hydroxide (Milk Of Magnesia Liq) 30 ml Q12H PRN PO Mild constipation 03/13/17 16:30 Sennosides (Senokot) 17.2 mg Q12H PRN PO Moderate constipation 03/13/17 16:30 Bisacodyl (Dulcolax Supp) 10 mg DAILY PRN RECTAL SEVERE CONSITIPATION 03/13/17 16:30 Lactulose (Lactulose Liq) 30 ml DAILY PRN PO SEVERE CONSITIPATION 03/13/17 16:30 Ferrous Sulfate (Ferrous Sulfate) 325 mg DAILY PO 03/14/17 09:00 03/14/17 08:55 Furosemide (Lasix) 40 mg DAILY PO 03/14/17 09:00 Future Hold 03/14/17 08:55 Pantoprazole Sodium (Protonix) 40 mg DAILY PO 03/14/17 09:00 03/14/17 08:55 Rifaximin (Xifaxan) 550 mg Q12HR PO 03/13/17 21:00 03/14/17 08:56 Spironolactone (Aldactone) 100 mg BIDPC PO 03/13/17 18:00 Future Hold 03/14/17 08:55 Lactulose (Lactulose Liq) 30 ml QID PO 03/13/17 18:00 03/14/17 13:13 Pharmacy Profile Note 0 ml @ 0 mls/hr UNSCH OTHER 03/14/17 09:45 Piperacillin Sod/ Tazobactam Sod 50 ml @ 100 mls/hr Q6H IV 03/14/17 11:00 03/14/17 10:25 Vancomycin HCl 1000 mg/Sodium Chloride 250 ml @ 250 mls/hr Q24H IV 03/14/17 16:00 Miscellaneous Information SPECIFIC LAB TO BE MYAH... ONCE ONCE .XX 03/16/17 15:45 03/16/17 15:46 Albumin Human 100 ml @ 60 mls/hr Q12H IV 03/14/17 16:00 03/15/17 05:39 03/14/17 16:41 Albumin Human 500 ml @ 250 mls/hr Q6H IV 03/14/17 19:00 03/15/17 14:59 Norepinephrine Bitartrate 250 ml @ 7.5 mls/hr TITRATE PRN IV Blood pressure management 03/14/17 18:45 03/14/17 23:44 Terbutaline Sulfate (Brethine Inj) 1 mg UNSCH PRN SQ For Extravasation 03/14/17 18:45 Hydromorphone HCl (Dilaudid Pf Inj) 0.5 mg Q4H PRN IV PUSH pain>5/10 03/14/17 18:45 03/14/17 20:02 Miscellaneous Information Patient in critical care unit? Ass... [id number] .XX 03/14/17 22:15 Chlorhexidine Gluconate (Chlorhexidine 2% Cloth) 3 pack DAILY@04 TOPICAL 03/15/17 04:00 03/19/17 04:01 Chlorhexidine Gluconate (Chlorhexidine 2% Cloth) 3 pack UNSCH PRN TOPICAL HYGIENIC CARE 03/14/17 22:15 03/19/17 22:00 Vasopressin 40 units/Dextrose 100 ml @ 6 mls/hr [id number] IV 03/14/17 23:11 Family History Mother with history of stomach cancer Social History Smokes 2-3 cigars a day, no alcohol or illegal drug use documented in EMR at last admission Physical Exam Vital Signs Vital Signs Date Time Temp Pulse Resp B/P (MAP) Pulse Ox O2 Delivery O2 Flow Rate FiO2 03/14/17 21:09 98.7 88 18 125/60 100 03/14/17 20:35 98.5 86 30 111/56 99 03/14/17 20:32 98.5 86 27 111/56 100 03/14/17 19:37 97.8 83 30 146/67 99 03/14/17 19:01 97.9 74 21 64/40 99 03/14/17 18:00 97.9 81 21 83/50 (61) 97 03/14/17 12:29 97.3 83 20 96/72 (80) 98 03/14/17 09:17 97.5 91 16 99/51 (67) 98 03/14/17 04:00 97.6 62 18 113/55 (74) 99 03/14/17 04:00 97.6 62 18 113/55 (74) 99 03/14/17 00:00 95 20 110/64 (79) 99 Physical Exam GENERAL: Cachectic sick, icteric, lethargic female SKIN: Warm and dry. HEAD: Normocephalic. EYES: Severe scleral icterus. NECK: Supple, trachea midline. No JVD or lymphadenopathy. CARDIOVASCULAR: Regular rate and rhythm without murmurs, gallops, or rubs. RESPIRATORY: Breath sounds equal bilaterally. No accessory muscle use. GASTROINTESTINAL: Abdomen is distended with a large amount of ascites. MUSCULOSKELETAL: No cyanosis BACK: Nontender without obvious deformity. NEURO EXAM: Mental Status: The patient is confused with lethargic speech Cranial Nerves: Pupils are round, reactive to light. Reflexes: No clonus. Laboratory Laboratory Tests Test 03/14/17 07:47 03/14/17 13:05 03/14/17 16:30 03/14/17 18:00 White Blood Count 5.0 Red Blood Count 2.06 Hemoglobin 9.0 Hematocrit 25.3 Mean Corpuscular Volume 122.8 Mean Corpuscular Hemoglobin 43.8 Mean Corpuscular Hemoglobin Concent 35.6 Red Cell Distribution Width 24.9 Platelet Count 44 Mean Platelet Volume 7.8 CBC Comment AUTO DIFF Differential Total Cells Counted 100 Neutrophils % (Manual) 68 Band Neutrophils % 2 Lymphocytes % 15 Monocytes % 14 Basophils % 1 Neutrophils # (Manual) 3.5 Nucleated Red Blood Cells 1 Differential Comment FINAL DIFF MANUAL Platelet Estimate LOW Platelet Morphology Comment NORMAL Polychromasia 2.4 Ovalocytes 1+ Blood Urea Nitrogen 9 Creatinine 1.03 Random Glucose 70 Total Protein 7.4 Albumin 2.3 Calcium Level 10.1 Alkaline Phosphatase 108 Aspartate Amino Transf (AST/SGOT) 229 Alanine Aminotransferase (ALT/SGPT) 104 Total Bilirubin 14.3 Sodium Level 132 Potassium Level 4.6 Chloride Level 102 Carbon Dioxide Level 20.5 Anion Gap 10 Estimat Glomerular Filtration Rate 67 Lactic Acid Level 2.5 4.3 Ammonia 54 Test 03/14/17 18:38 Date/Time Source Procedure Growth Status 03/13/17 14:10 Blood Peripheral Aerobic Blood Culture - Preliminary NO GROWTH IN 1 DAY Resulted 03/13/17 14:10 Blood Peripheral Anaerobic Blood Culture - Preliminary NO GROWTH IN 1 DAY Resulted Result Diagram: 03/14/17 0747 03/14/17 0747 Assessment and Plan Assessment and Plan End-stage liver disease - GI consult - Palliative care consult - Irreversible coagulopathy - Extremely poor prognosis - Supportive care Coagulopathy - Due to above - Patient has received sixpack of platelets - 2 units of FFP's - Monitor trend Severe Anemia - Intra-abdominal bleed - Severe irreversible coagulopathy due to end-stage liver disease - Transfuse 6 units of PRBCs Hypotension - Due to above - Central line placed - Levophed and vasopressin to keep MAP above 65 - Scheduled albumin Encephalopathy - Due to liver failure - Xifaxan and lactulose - Neuro checks per unit routine DVT GI prophylaxis - Teds SCDs - No pharmacological DVT prophylaxis due to coagulopathy - Protonix IV twice a day Critical Care: The total critical care time was 35 minutes. Time to perform other separately billable procedures was not included in the critical care time. Israel Islas MD Mar 14, 2017 23:12
[2017-03-14] MEDS ORDERED: IOHEXOL 350 MG/ML 10 ML VIAL (for RAD DIAG) IVCONTRAST ONE (23:35)
[2017-03-14] MEDS: NOREPINEPHRINE-DEXTROSE DRIP 250 ML IV PRN (23:44)
--- NOTE | 2017-03-14 23:50 | RADRPT ---
EXAM DATE/TIME: 03/14/2017 23:26 [facility] COMPARISON: CT ABDOMEN & PELVIS W CONTRAST, February 23, 2017, 22:47. INDICATIONS : Abdominal pain; ascites per ultrasound. Post paracentesis. IV CONTRAST: 96 cc Omnipaque 350 (iohexol) IV ORAL CONTRAST: Prescribed oral contrast ingested. RADIATION DOSE: 18.18 CTDIvol (mGy) MEDICAL HISTORY : Cirrhosis. Hepatitis C. Cardiovascular diseaseHypertension, CVA SURGICAL HISTORY : Hernia repair, paracentesis ENCOUNTER: Subsequent ACUITY: 3 days PAIN SCALE: 5/10 LOCATION: abdomen TECHNIQUE: Volumetric scanning of the abdomen and pelvis was performed. Using automated exposure control and ad justment of the mA and/or kV according to patient size, radiation dose was kept as low as reasonably achievable to obtain optimal diagnostic quality images. DICOM format image data is available electro nically for review and comparison. FINDINGS: Examination of the lung bases demonstrates no abnormality. No pleural fluid is identified. No pulmona ry nodules are present. Severe ascites is present. There is a nodular contour to the liver which may reflect cirrhosis. The spleen is normal in size and free of focal defects. There are multiple stones within the gallbladder without wall thickening or pericholecystic fluid the largest measuring 10 mm. The pancreas demonstrates no evidence of mass and there is no dilatation of the pancreatic duct. The adrenal glands and kidneys appear normal bilaterally. No hydronephrosis or mass lesions are identifie d. A drain is present in the low abdomen in the midline. A Mondragon catheter is present within the bladder which does not allow for evaluation. CONCLUSION: 1. Cirrhosis with severe ascites. 2. Cholelithiasis Braydon Hoover MD on March 14, 2017 at 23:45 Board Certified Radiologist. This report was verified electronically.
[2017-03-15] VITALS (16 sets, daily range): BP systolic 64–129; BP diastolic 42–73; PULSE 66–104; RESP 12–19; TEMP 90.5–96.7; O2SAT 100
[2017-03-15 00:29] LABS: TOTAL PROTEIN,PERITONEAL FLUID 2.4 GM/DL
[2017-03-15 00:29] LABS: MEAN CELL VOLUME 131.2 FL (80.0-100.0); MEAN CORPUSCULAR HEMOGLOBIN 42.3 PG (27.0-34.0); MEAN CORPUSCULAR HGB CONC 32.2 % (32.0-36.0); MEAN PLATELET VOLUME 7.5 FL (7.0-11.0); PLATELET COUNT 55 TH/MM3 (150-450); RED CELL DISTRIBUTION WIDTH 27.2 % (11.6-17.2); WHITE BLOOD COUNT 6.7 TH/MM3 (4.0-11.0)
[2017-03-15 00:31] LABS: RED BLOOD COUNT 0.68 MIL/MM3 (4.00-5.30)
[2017-03-15 00:33] LABS: HEMOGLOBIN 2.9 GM/DL (11.6-15.3)
[2017-03-15 00:34] LABS: HEMATOCRIT 8.9 % (35.0-46.0)
[2017-03-15 01:05] LABS: INTERNATIONAL NORMALIZED RATIO 2.7 RATIO; PROTHROMBIN TIME - PATIENT 30.8 SEC (9.8-11.6)
[2017-03-15 01:07] LABS: LACTIC ACID SEPSIS PROTOCOL 10.5 mmol/L (0.4-2.0)
--- NOTE | 2017-03-15 01:12 | PD.PROCEDR ---
Procedure Note Procedure Centerline placement A time-out was completed verifying correct patient, procedure, site, positioning , and special equipment if applicable. The patient was placed in a dependent position appropriate for central line placement based on the vein to be cannulated. The patients right neck was prepped and draped in sterile fashion. 1% Lidocaine was used to anesthetize the surrounding skin area. A triple lumen 9 -Luxembourger Cordis catheter was introduced into the the internal jugular vein using the Seldinger technique and under ultrasound guidance. The catheter was threaded smoothly over the guide wire and appropriate blood return was obtained. Each lumen of the catheter was evacuated of air and flushed with sterile saline. The catheter was then sutured in place to the skin and a sterile dressing applied. Perfusion to the extremity distal to the point of catheter insertion was checked and found to be adequate. Estimated Blood Loss: 1ml The patient tolerated the procedure well and there were no complications. Israel Islas MD Mar 15, 2017 01:12
[2017-03-15] MEDS ORDERED: SODIUM BICARBONATE 8.4% INJ 150 MEQ in DEXTROSE 5% IN WATE 1000ML INJ 1,000 ML IV SCH ×2 (01:15)
--- NOTE | 2017-03-15 01:17 | PD.PROCEDR ---
Procedure Note Procedure Paracentesis CONSENT: Consent was obtained from _ prior to the procedure. Indications, risks, and benefits were explained at length. PROCEDURE SUMMARY: A time-out was performed. My hands were washed immediately prior to the procedure. I wore a surgical cap, mask with protective eyewear, sterile gown and sterile gloves throughout the procedure. The area was cleansed and draped in usual sterile fashion using chlorhexidine scrub. Anesthesia was achieved with 1% lidocaine. The right lower quadrant of the abdomen was prepped and draped in a sterile fashion using chlorhexidine scrub. 1% lidocaine was used to numb the skin, soft tissue and peritoneum. The paracentesis catheter was inserted and advanced with negative pressure until dark brown/hemorrhagic colored fluid was aspirated. Approximately 60 mL of ascitic fluid was collected and sent for laboratory analysis. The catheter was then connected to the vaccutainer and 200 mL of additional ascitic fluid were drained. The ascitic fluid level to hemorrhagic/old blood with brown-red discoloration, also patient became profoundly hypotensive and the drainage was stopped with the catheter was in place. Patient was emergently taken to CAT scan that confirmed the proper position of the catheter, and significant amount of ascites. Due to hypotension and goods respiratory condition further drainage is held. Estimated blood loss 20 mL Israel Islas MD Mar 15, 2017 01:17
[2017-03-15] MEDS: ALBUMIN 5% INJ 500 ML IV SCH ×3 (01:19→13:48)
[2017-03-15] MEDS: NOREPINEPHRINE-DEXTROSE DRIP 250 ML IV PRN ×5 (01:22→13:36)
[2017-03-15] MEDS: PANTOPRAZOLE SODIUM 40 MG VIAL IV PUSH SCH ×2 (01:22→13:48)
[2017-03-15] MEDS: PIPERACIL-TAZO 3.375 GM PREMIX 50 ML IV SCH ×3 (01:31→11:00)
[2017-03-15 02:12] LABS: PERITONEAL EOS 2 %; PERITONEAL LYMPHS 22 %; PERITONEAL MONOS 16 %; PERITONEAL POLYS(SEGS) 60 %; PERITONEAL RBC 341601 /MM3 (0-0)
[2017-03-15] MEDS ORDERED: MIDAZOLAM HCL 5 MG/ML VIAL (1 ML) ONE (03:11)
[2017-03-15] MEDS: ALBUMIN 25% INJ 100 ML IV SCH (03:38)
[2017-03-15] MEDS ORDERED: CHLORHEXIDINE GLUCONATE 2 % 1 PACK (2 CLOTHS)(taper/protocol) TOPICAL SCH (04:00)
--- NOTE | 2017-03-15 05:28 | RADRPT ---
EXAM DATE/TIME: 03/15/2017 04:34 [facility] COMPARISON: CHEST SINGLE AP, March 13, 2017, 14:19. INDICATIONS : E-T tube and central line placement. MEDICAL HISTORY : Hypercholesterolemia. Cirrhosis. Hypertension. SURGICAL HISTORY : None. ENCOUNTER: Subsequent ACUITY: 3 days PAIN SCORE: Non-responsive. LOCATION: Bilateral chest FINDINGS: The cardiac silhouette is enlarged in transverse diameter. Endotracheal tube is at the fer and cou ld be retracted 2-3 cm. A right sided internal jugular vein catheter is in place without pneumothorax with its tip in the superior vena cava. The lungs are hypoinflated. CONCLUSION: 1. Endotracheal tube at the fer and could be retracted 2-3 cm 2. Uncomplicated line placement. No evidence of pneumothorax. Braydon Hoover MD on March 15, 2017 at 5:26 Board Certified Radiologist. This report was verified electronically.
--- NOTE | 2017-03-15 05:41 | PD.PROCEDR ---
Procedure Note Procedure Endotracheal Intubation A time-out was completed verifying correct patient, procedure, site, positioning , and special equipment if applicable. The patient was placed in a flat position. Sedation was obtained using Etomidate 20mg. The patient was easily ventilated using an ambu bag. The GL[employer]/ MAC 4 BLADE was used and inserted into the oropharynx at which time there was a Grade 1 view of the vocal cords. A 8-romanian endotracheal tube was inserted and visualized going through the vocal cords. The stylette was removed. Colorimetric change was visualized on the CO2 meter. Breath sounds were heard in both lung umanzor equally. The endotracheal tube was placed at 23 cm, measured at the teeth. A chest x-ray was ordered to assess for pneumothorax and verify endotrachealtube placement. Estimated Blood Loss: 0 The patient tolerated the procedure well and there were no complications. Israel Islas MD Mar 15, 2017 5:41 am
--- NOTE | 2017-03-15 05:41 | PD.PROCEDR ---
Procedure Note Procedure Endotracheal Intubation A time-out was completed verifying correct patient, procedure, site, positioning , and special equipment if applicable. The patient was placed in a flat position. Sedation was obtained using Etomidate 20mg. The patient was easily ventilated using an ambu bag. The GLIDESCOPE [employer]CHN[employer]Y/ MAC 4 BLADE was used and inserted into the oropharynx at which time there was a Grade 1 view of the vocal cords. A 8-thai endotracheal tube was inserted and visualized going through the vocal cords. The stylette was removed. Colorimetric change was visualized on the CO2 meter. Breath sounds were heard in both lung umanzor equally. The endotracheal tube was placed at 23 cm, measured at the teeth. A chest x-ray was ordered to assess for pneumothorax and verify endotrachealtube placement. Estimated Blood Loss: 0 The patient tolerated the procedure well and there were no complications. Israel Islas MD Mar 15, 2017 5:41 am
--- NOTE | 2017-03-15 05:41 | PD.PROCEDR ---
Procedure Note Procedure Endotracheal Intubation A time-out was completed verifying correct patient, procedure, site, positioning , and special equipment if applicable. The patient was placed in a flat position. Sedation was obtained using Etomidate 20mg. The patient was easily ventilated using an ambu bag. The GLIDESCOPE TECHNOLOGY/ MAC 4 BLADE was used and inserted into the oropharynx at which time there was a Grade 1 view of the vocal cords. A 8-tamazight endotracheal tube was inserted and visualized going through the vocal cords. The stylette was removed. Colorimetric change was visualized on the CO2 meter. Breath sounds were heard in both lung umanzor equally. The endotracheal tube was placed at 23 cm, measured at the teeth. A chest x-ray was ordered to assess for pneumothorax and verify endotrachealtube placement. Estimated Blood Loss: 0 The patient tolerated the procedure well and there were no complications. Israel Islas MD Mar 15, 2017 5:41 am
--- NOTE | 2017-03-15 07:07 | MB ---
cc: JOSE MANUEL JENNINGS M.D. DATE OF CONSULTATION 03/14/2017 DATE OF [birth year] REASON FOR CONSULTATION I am seeing the patient at the request Dr. Raya Boucher of [facility] for evaluation of ascites and abdominal pain. HISTORY OF PRESENT ILLNESS The patient is a 56-year-old female who was recently in the hospital. She presented with abdominal pain and a paracentesis was done and did not show spontaneous bacterial peritonitis. After paracentesis she felt better and she was discharged. She was told to follow up in the office and take water pills. Apparently she had increased abdominal pain again and some altered mental status and presented back to the hospital. She was supposed to be on Xifaxan but she does not recall taking this. The is pain diffuse - all around her abdomen. It just hurts. She cannot quantify what makes it worse or better, etc. She basically wants another paracentesis. She has been on antibiotics empirically for spontaneous bacterial peritonitis. She says she takes no aspirin or NSAIDs. There has been no dysphagia or odynophagia, nausea or vomiting. There is a history of esophageal stricture in the past. No melena, diarrhea or constipation. She says she is not taking Tylenol nor is she drinking alcohol. She does have cirrhosis with ascites on the basis of alcohol hepatitis C. PAST MEDICAL HISTORY Significant for - 1. 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 2. She has had strokes. 3. Esophageal stricture but no varices. 4. Last upper endoscopy a year ago. 5. Hypertension. 6. Gastric ulcer the past. 7. Anemia when she was transfused blood. PAST SURGICAL HISTORY Upper endoscopy and multiple paracentesis. MEDICATIONS AN OUTPATIENT 1. Xifaxan. 2. Lactulose. 3. Potassium. 4. Spirolactone. 5. Lasix. 6. Protonix. 7. Ferrous sulfate. ALLERGIES No known drug allergies. MEDICATIONS THIS ADMISSION 1. Vancomycin. 2. Piperacillin. 3. She did get one dose of cephalosporin. 4. Morphine. 5. Ferrous sulfate. 6. Lasix. 7. Protonix. 8. Ioana-Colace. 9. Xifaxan. 10. Aldactone. 11. Lactulose. 12. Zofran. 13. Narcan. 14. Milk of magnesia. 15. Senokot. 16. Dulcolax. REVIEW OF SYSTEMS CONSTITUTIONAL: No weight loss, fever or chills. CARDIOPULMONARY: No chest pain, palpitations or shortness of breath. GASTROINTESTINAL: See above, otherwise negative 10-point review of systems, although somewhat history is not obtainable because she would not answer some of my questions. FAMILY HISTORY Reported stomach cancer in the family. No history of liver disease, colon cancer or colon polyps. SOCIAL HISTORY She had history of alcohol use in the past. She denies it at this time. She does smoke cigars. PHYSICAL EXAMINATION VITAL SIGNS: Blood pressure is 96/72, pulse of 83, respiratory rate 20, temperature 97.3. GENERAL: A comfortable-appearing, obviously jaundiced -[place]izen [place] female who appears in no acute GI distress at this time. HEENT: Her pupils are equal, round, reactive to light. This scleral icterus noted. NECK: Supple. No thyromegaly or lymphadenopathy. OROPHARYNX: Dental caries. LUNGS: Clear to auscultation. HEART: Regular rate and rhythm. No gross murmur heard. ABDOMEN: Protuberant. Some ascites was noted. She was mildly distended but the abdomen was not tense. There is no rebound tenderness. No organomegaly or masses. Does have a hernia, but it is easily reducible. EXTREMITIES: No clubbing, cyanosis or edema. NEUROLOGIC: Her cranial nerves are grossly intact but she would not participate in all of the cranial nerve exam. She remembered who I was and she is oriented to person and place. SKIN: Warm and moist. [facility] revealed a hemoglobin of 9.0, hematocrit 25.3, MCV 122.8, white blood cell count of 5000, platelet count of 44,000. Tylenol level was less than 2.0. Urine drug screen otherwise unremarkable. Her prothrombin time was 37.8. INR 3.2. There is no alcohol in her blood. Chemistry revealed a bilirubin of 14.3, SGOT of 229, SGPT of 104, alk phos of 108 which is normal. BUN of 9, creatinine of 1.03. Lactic acid 2.5. Yesterday the lactic acid was 4.5, creatinine 1.5 yesterday and bilirubin was 16 yesterday. Yesterday her hemoglobin was 9.8. Ultrasound of the abdomen done yesterday revealed large amount of ascites. IMPRESSION 1. Abdominal pain - it is diffuse. I suspect it is related to her ascites but the ascites is not tense. This may be spontaneous bacterial peritonitis - sometimes frequent procedures can cause this problem. She may have developed infection with paracentesis also. I cannot rule out bleeding into the GI tract, bleeding into the abdominal cavity also. Also differential especially with the worsening LFTs are portal vein thrombosis, adhesions, bowel obstruction, etc. However, I suspect it may be her liver getting worse and causing some of her symptoms also. 2. 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 MCV is quite elevated but she has not been drinking alcohol. Her bilirubin is also worse, as mentioned above. She says she is not taking Tylenol and her Tylenol level (acetaminophen levels) came back normal. 3. Ascites. 4. Worsening LFTs, as mentioned above. Her MELD score this morning is actually 30 which is quite poor (range is between 6-40). RECOMMENDATIONS 1. As please check for acute reason why LFTs could be worse such as autoimmune hepatitis - please check KIESHA and antismooth muscle antibody. Please also check an acute hepatitis panel (perhaps she was exposed to hepatitis A or B). 2. Please do paracenteses when able to get this done. However, regardless of the cell differential, would treat her as spontaneous bacterial peritonitis for now. This has been because she received antibiotics on her last admission and the results may not be adequately interpreted because of this. 3. CT scan of the and pelvis with oral IV contrast. 4. Consideration should be given to the use of Mucomyst. This has been used to treat Tylenol overdose but some patients with impending liver failure it has been quite helpful. Unfortunately the taste is not the best and sometimes is used with an NG tube. At this time the patient refuses to use NG tube, although there is a risk of aspiration. I discussed details with the patient and the patient's family and the patient did not seem interested in doing this, but we may have to readdress this. 5. Further recommendations depending on how she does. MD ANDREA Cain/SACHIN /2:05 PM /7:35 AM MASSIEL
[2017-03-15] MEDS ORDERED: SODIUM CHLOR 0.9% 250 ML INJ 250 ML IV ONE (08:00)
[2017-03-15] MEDS ORDERED: CALCIUM CHLORIDE 10% SOLN 1 GRAM/10 ML SYR IV PUSH ONE (08:30)
[2017-03-15] MEDS ORDERED: SODIUM BICARBONATE 8.4% INJ 50 MEQ/50 ML SYR IV PUSH ONE (08:30)
--- NOTE | 2017-03-15 08:43 | RADRPT ---
EXAM DATE/TIME: 03/15/2017 08:18 [place] COMPARISON: CHEST SINGLE AP, March 15, 2017, 4:34. INDICATIONS : Central line placement. MEDICAL HISTORY : Hypercholesterolemia. Cirrhosis. Hypertension. SURGICAL HISTORY : None. ENCOUNTER: Subsequent ACUITY: 3 days PAIN SCORE: Non-responsive. LOCATION: Bilateral chest FINDINGS: A single view of the chest demonstrates bibasilar patchy densities. The cardiomediastinal contours ar e unremarkable. Right-sided jugular catheter with tip in the right atrium. Left subclavian sheath wi th tip in the subclavian vein. No pneumothorax. Endotracheal tube in good position. Osseous structure s are intact. CONCLUSION: 1. Bibasilar patchy densities. 2. Tubes and lines as described above. Lawrence Hurd MD on March 15, 2017 at 8:39 Board Certified Radiologist. This report was verified electronically.
[2017-03-15 08:50] LABS: AUTOMATED NEUTROPHIL # 3.9 TH/MM3 (1.8-7.7); BASOPHIL % 0.3 % (0.0-2.0); EOSINOPHIL % 0.1 % (0.0-4.0); HEMATOCRIT 21.9 % (35.0-46.0); HEMOGLOBIN 7.4 GM/DL (11.6-15.3); LYMPH % 16.2 % (9.0-44.0); LYMPHOCYTE # 0.9 TH/MM3 (1.0-4.8); MEAN CELL VOLUME 89.3 FL (80.0-100.0); MEAN CORPUSCULAR HEMOGLOBIN 30.1 PG (27.0-34.0); MEAN CORPUSCULAR HGB CONC 33.8 % (32.0-36.0); MEAN PLATELET VOLUME 7.1 FL (7.0-11.0); MONO % 12.2 % (0.0-8.0); MONOCYTE # 0.7 TH/MM3 (0-0.9); NEUT % 71.2 % (16.0-70.0); RED BLOOD COUNT 2.45 MIL/MM3 (4.00-5.30); RED CELL DISTRIBUTION WIDTH 15.9 % (11.6-17.2); WHITE BLOOD COUNT 5.5 TH/MM3 (4.0-11.0)
[2017-03-15 08:56] LABS: INTERNATIONAL NORMALIZED RATIO ND RATIO
[2017-03-15 08:57] LABS: PLATELET COUNT 17 TH/MM3 (150-450)
[2017-03-15 08:58] LABS: ALBUMIN 2.6 GM/DL (3.4-5.0); ALKALINE PHOSPHATASE 31 U/L (45-117); ALT (GPT) 75 U/L (10-53); AST (GOT) 296 U/L (15-37); BICARBONATE 7.1 MEQ/L (21.0-32.0); BLOOD UREA NITROGEN 10 MG/DL (7-18); CALCIUM 7.5 MG/DL (8.5-10.1); CHLORIDE 101 MEQ/L (98-107); CREATININE 2.33 MG/DL (0.50-1.00); GLOMERULAR FILTRATION RATE 26 ML/MIN (>89); GLUCOSE,RANDOM 232 MG/DL (74-106); LDH SERUM 323 U/L (84-246); SODIUM (NA) 131 MEQ/L (136-145); TOTAL BILIRUBIN ADULT 6.9 MG/DL (0.2-1.0); TOTAL PROTEIN 3.8 GM/DL (6.4-8.2)
[2017-03-15] MEDS: MAGNESIUM SULFATE 1 GM PREMIX 100 ML IV SCH ×2 (09:00→10:00)
[2017-03-15] MEDS: LACTULOSE SYRUP 20 GM/30 ML CUP PO SCH ×2 (09:00→13:00)
[2017-03-15] MEDS: SODIUM CHLORIDE 0.9% FLUSH 10 ML FLUSH IV FLUSH SCH (09:00)
[2017-03-15] MEDS: FERROUS SULFATE 325 MG (65 MG ELEMENTAL IRON) TAB PO SCH (09:00)
[2017-03-15] MEDS: DOCUSATE SODIUM 50 MG/SENNA 8.6 MG TAB PO SCH (09:00)
[2017-03-15] MEDS: RIFAXIMIN 550 MG TAB PO SCH (09:00)
[2017-03-15] MEDS ORDERED: SODIUM BICARBONATE 8.4% INJ 50 ML ONE (09:26)
[2017-03-15] MEDS ORDERED: ALBUMIN 5% INJ 250 ML IV ONE (09:30)
[2017-03-15 09:40] LABS: FIBRINOGEN LESS THAN 50 mg/dL (227-377)
[2017-03-15 09:47] LABS: MEAN CELL VOLUME 87.2 FL (80.0-100.0); MEAN CORPUSCULAR HEMOGLOBIN 29.3 PG (27.0-34.0); MEAN CORPUSCULAR HGB CONC 33.7 % (32.0-36.0); MEAN PLATELET VOLUME 7.6 FL (7.0-11.0); RED BLOOD COUNT 1.86 MIL/MM3 (4.00-5.30); RED CELL DISTRIBUTION WIDTH 15.5 % (11.6-17.2); WHITE BLOOD COUNT 2.4 TH/MM3 (4.0-11.0)
[2017-03-15 09:49] LABS: BANDS 16 % (0-6); BASOPHILS 2 % (0-2); CORRECTED NUCLEATED RBC 31 /100 WBC (0-0); LYMPHOCYTES 12 % (9-44); METAMYELOCYTES 1 % (0-1); MONOCYTES 8 % (0-8); MYELOCYTES 2 % (0-0); NEUTROPHIL # MANUAL DIFF 4.3 TH/MM3 (1.8-7.7); NUCLEATED RED BLOOD CELL 31 (0-0); POLYS (SEG NEUTROPHILS) 59 % (16-70); TOXIC GRANULATION 1+ (NORMAL)
[2017-03-15 09:51] LABS: SPHEROCYTES OCC (NORMAL)
[2017-03-15 09:54] LABS: HEMATOCRIT 16.2 % (35.0-46.0); HEMOGLOBIN 5.5 GM/DL (11.6-15.3); PLATELET COUNT 50 TH/MM3 (150-450)
[2017-03-15 09:58] LABS: INTERNATIONAL NORMALIZED RATIO 1.2 RATIO; PROTHROMBIN TIME - PATIENT 13.6 SEC (9.8-11.6)
[2017-03-15] MEDS ORDERED: PROTHROMBIN COMPLEX CONC INJ 4,000 UNITS in SYRINGE/BAG 1 EA IV ONE (10:00)
[2017-03-15] MEDS ORDERED: FACTOR VIIA (RECOMB) 2 MG VIAL IV PUSH ONE (10:00)
[2017-03-15 10:11] LABS: BICARBONATE 10.8 MEQ/L (21.0-32.0); CREATININE 2.1 MG/DL (0.50-1.00)
--- NOTE | 2017-03-15 10:49 | HHI.GIFU ---
GI Follow-up Note Consult Follow-up Subjective: events noted and discussed with beauty sales advisor--bloody ascites, anemia and hypotension. Going to IR. Objective: PHYSICAL EXAMINATION: 86/53-84-19 No fever HEENT: icteric sclera CHEST: Chest is clear to auscultation and percussion. CARDIAC: Regular rate and rhythm with no murmur gallop or rubs. ABDOMEN: distended, + tender; no hepatosplenomegaly; bowel sounds are present in all four quadrants. EXTREMITIES: trace edema. GUEST SERVICES ATTENDANT: disoriented Available Data (labs, X- Rays, Procedues) : Hgb 2.9-7.4-5.5. CT reviewed ASSESSMENT/PLAN: 1. Abdominal pain - it is diffuse. 2. 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 3. Ascites-bloody. ? HCC ? Varices ? spontaneous ? Traumatic tap 4. Worsening LFTs, RECOMMENDATIONS 1. awaiting labs I ordered 2. awaiting IR It was a pleasure seeing Lesli Dillard. Thank you for this consult. Entered by: Gilbert Narvaez MD Mar 15, 2017 10:49
--- NOTE | 2017-03-15 10:49 | HHI.GIFU ---
GI Follow-up Note Consult Follow-up Subjective: events noted and discussed with instructor ballroom dancing--bloody ascites, anemia and hypotension. Going to IR. Objective: PHYSICAL EXAMINATION: 86/53-84-19 No fever HEENT: icteric sclera CHEST: Chest is clear to auscultation and percussion. CARDIAC: Regular rate and rhythm with no murmur gallop or rubs. ABDOMEN: distended, + tender; no hepatosplenomegaly; bowel sounds are present in all four quadrants. EXTREMITIES: trace edema. PROGRAM MANAGEMENT INTERN: disoriented Available Data (labs, X- Rays, Procedues) : Hgb 2.9-7.4-5.5. CT reviewed ASSESSMENT/PLAN: 1. Abdominal pain - it is diffuse. 2. 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 3. Ascites-bloody. ? HCC ? Varices ? spontaneous ? Traumatic tap 4. Worsening LFTs, RECOMMENDATIONS 1. awaiting labs I ordered 2. awaiting IR It was a pleasure seeing Lesli Dillard. Thank you for this consult. Entered by: Gilbert Narvaez MD Mar 15, 2017 10:49
--- NOTE | 2017-03-15 10:49 | HHI.GIFU ---
GI Follow-up Note Consult Follow-up Subjective: events noted and discussed with stamp clerk--bloody ascites, anemia and hypotension. Going to IR. Objective: PHYSICAL EXAMINATION: 86/53-84-19 No fever HEENT: icteric sclera CHEST: Chest is clear to auscultation and percussion. CARDIAC: Regular rate and rhythm with no murmur gallop or rubs. ABDOMEN: distended, + tender; no hepatosplenomegaly; bowel sounds are present in all four quadrants. EXTREMITIES: trace edema. ENGINEERING ASSISTANT: disoriented Available Data (labs, X- Rays, Procedues) : Hgb 2.9-7.4-5.5. CT reviewed ASSESSMENT/PLAN: 1. Abdominal pain - it is diffuse. 2. 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 3. Ascites-bloody. ? HCC ? Varices ? spontaneous ? Traumatic tap 4. Worsening LFTs, RECOMMENDATIONS 1. awaiting labs I ordered 2. awaiting IR It was a pleasure seeing Lesli Dillard. Thank you for this consult. Entered by: Gilbert Narvaez MD Mar 15, 2017 10:49
[2017-03-15] MEDS ORDERED: HEPARIN-NS/PF INJ 500 ML IART SCH (12:01)
--- NOTE | 2017-03-15 12:06 | PD.RAD ---
Post Procedure Progress Note Pre Procedure Diagnosis: (1) Hemorrhage, intra-abdominal (2) Cirrhosis of liver with ascites (3) Coagulopathy Post Procedure Diagnosis: (1) Hemorrhage, intra-abdominal (2) Coagulopathy (3) Hepatitis C, chronic (4) Cirrhosis of liver with ascites Procedure Date: Mar 15, 2017 Supervising Radiologist: Charlie Johnson Proceduralist/Assist: Preeti Mckeon, RT(R), Blanquita Pool RT(R)(CV) Anesthesia: General Plan of Activity Patient to Unit: Critical Care Patient Condition: Critical See PACS Report for procedural detail/treatment Vascular-Arterial Procedure Procedure 1 Procedure Site: Right Leg, Superior Mesenteric Artery (Inferior epigastric artery and inferior epigastric vein) Procedure(s): Angiogram (SMA, IEA, IEV), Embolization (IE artery) Access Access Site(s): Left Femoral Artery (and vein) Sheath(s) Remaining: Left Femoral Artery (and vein) Findings: No bleed identified. IEA empirically embolized Charlie Johnson MD Mar 15, 2017 12:06
[2017-03-15] MEDS ORDERED: SODIUM CHLOR 0.9% 1000 ML INJ 1,000 ML IV SCH ×2 (12:30→15:00)
[2017-03-15 12:59] LABS: ANA SCREEN NEG (NEG)
--- NOTE | 2017-03-15 13:31 | PD.CONS ---
Consult Service Palliative Care Consult Requested By Dr. Islas . Primary Care Physician Unknown . Reason for Consultation a. To assist with evaluation and management of symptoms including: Pain, encephalopathy b. To assist medical decision maker(s) with: better understanding of current medical conditions; weighing benefits/burdens of medical treatment options; making medical treatment decisions. . HPI History of Present Illness 56-year-old female, with a past history of cirrhosis/end-stage liver disease, alcoholism, anemia, and CVA, has been to this hospital numerous times. She was admitted again in January 2016 because of sepsis, and has had numerous paracenteses over the past year because of pronounced ascites. The patient was admitted on 02/24/17 because of painful ascites, and at that time had INR 2.2, bilirubin 7.2, and creatinine 1.29. She was admitted again on 03/09/17 because of painful ascites, and at that time her INR was 2.6, bilirubin 9.2, and the albumin was 2.1. She was discharged back home on 03/12/17, but returned the following day 03/13/17 because of altered mental status. She was confused and only saying "yes" to any question. In the emergency department, findings included: * Confusion, essentially nonverbal * White count 3.9, hemoglobin 9.8, platelets 55,000 * INR 2.9, bilirubin 16 * AST 232, ALT 108 * Sodium 1:30, creatinine 1.15 The patient was admitted and became hemodynamically unstable. Her hemoglobin was as low as 2.9 the following day, and a paracentesis her first night here revealed bloody fluid. She has been transfused multiple blood products, and the paracentesis catheter that was left in continued to produce more and more blood. Today, her hemoglobin was 5.5, creatinine 2.10. She was taken down to radiology, where they were unable to identify a bleeding vessel that could be embolized. She remains unresponsive, mechanically ventilated, and on pressors. The patient has developed increasing problems with hemorrhage, with blood in the ET tube, Mondragon, around IV sites, etc. Her APTT continues to rise, her hemoglobin continues to decrease in spite of multiple transfusions, and her blood pressure continues to fall in spite of pressors. Palliative Care was consulted to assist with symptom management, and to enter into discussions with the family regarding the current illnesses, prognosis, and the benefits and burdens of the various treatment options. . Function/Cognitive Trajectory She had been functioning fairly independently, living in one room in a rooming house locally. . Review of Systems ROS Limitations: Clinical Condition (history per family, Hospital medical records, and nursing staff), Intubated Constitutional: COMPLAINS OF: Weight gain Endocrine: DENIES: Polyuria Eyes: DENIES: Eye inflammation Ears, nose, mouth, throat: DENIES: Epistaxis Respiratory: COMPLAINS OF: Shortness of breath (respiratory failure) Cardiovascular: COMPLAINS OF: Syncope Gastrointestinal: COMPLAINS OF: Abdominal pain (for several months), DENIES: Vomiting Genitourinary: DENIES: Hematuria Integumentary: DENIES: Rash Hematologic/Lymphatics: DENIES: Lymphadenopathy Immunologic/Allergic: DENIES: Urticaria Neurologic: DENIES: Seizures Psychiatric: COMPLAINS OF: Confusion Past Family Social History Coded Allergies: No Known Allergies (Verified , 02/23/17) Past Medical History * Diffuse hemorrhage/DIC * End-stage liver disease, cirrhosis * Alcoholism * Anemia * History of hepatitis C * Anxiety * History of a stroke while in her 20s * Esophageal stricture * Cholelithiasis on ultrasound 2017 * Degenerative joint disease . Past Surgical History Per EMR: Multiple paracentesis, EGD with esophageal dilatation. Current Medications Medications (Trade) Dose Ordered Sig/Aleisha Route Start Time Stop Time Status Last Admin (NS Flush) 2 ml UNSCH PRN IV FLUSH 03/13/17 16:30 (NS Flush) 2 ml BID IV FLUSH 03/13/17 21:00 03/15/17 09:00 (Zofran Inj) 4 mg Q6H PRN IVP 03/13/17 16:30 (Narcan Inj) 0.4 mg UNSCH PRN IV PUSH 03/13/17 16:30 (Ioana-Colace) 1 tab BID PO 03/13/17 21:00 03/13/17 21:38 (Milk Of Magnesia Liq) 30 ml Q12H PRN PO 03/13/17 16:30 (Senokot) 17.2 mg Q12H PRN PO 03/13/17 16:30 (Dulcolax Supp) 10 mg DAILY PRN RECTAL 03/13/17 16:30 (Lactulose Liq) 30 ml DAILY PRN PO 03/13/17 16:30 (Ferrous Sulfate) 325 mg DAILY PO 03/14/17 09:00 03/14/17 08:55 (Lasix) 40 mg DAILY PO 03/14/17 09:00 Future Hold 03/14/17 08:55 (Xifaxan) 550 mg Q12HR PO 03/13/17 21:00 03/14/17 08:56 (Aldactone) 100 mg BIDPC PO 03/13/17 18:00 Future Hold 03/14/17 08:55 (Lactulose Liq) 30 ml QID PO 03/13/17 18:00 03/14/17 13:13 Pharmacy Profile Note 0 ml @ 0 mls/hr UNSCH OTHER 03/14/17 09:45 Piperacillin Sod/ Tazobactam Sod 50 ml @ 100 mls/hr Q6H IV 03/14/17 11:00 03/15/17 05:54 Vancomycin HCl 1000 mg/Sodium Chloride 250 ml @ 250 mls/hr Q24H IV 03/14/17 16:00 Miscellaneous Information SPECIFIC LAB TO BE MYAH... ONCE ONCE .XX 03/16/17 15:45 03/16/17 15:46 Albumin Human 500 ml @ 250 mls/hr Q6H IV 03/14/17 19:00 03/15/17 14:59 03/15/17 05:54 Norepinephrine Bitartrate 250 ml @ 7.5 mls/hr TITRATE PRN IV 03/14/17 18:45 03/15/17 07:45 (Brethine Inj) 1 mg UNSCH PRN SQ 03/14/17 18:45 Miscellaneous Information Patient in critical care unit? Ass... [id number] .XX 03/14/17 22:15 03/14/17 22:15 (Chlorhexidine 2% Cloth) 3 pack DAILY@04 TOPICAL 03/15/17 04:00 03/19/17 04:01 03/15/17 03:39 (Chlorhexidine 2% Cloth) 3 pack UNSCH PRN TOPICAL 03/14/17 22:15 03/19/17 22:00 Vasopressin 40 units/Dextrose 100 ml @ 6 mls/hr [id number] IV 03/14/17 23:11 03/15/17 01:20 (Protonix Inj) 40 mg Q12H IV PUSH 03/15/17 01:00 03/15/17 01:22 Sodium Bicarbonate 150 meq/Dextrose 1,150 ml @ 75 mls/hr [id number] IV 03/15/17 01:15 03/15/17 01:41 Sodium Chloride 250 ml @ 15 mls/hr ONCE ONCE IV 03/15/17 08:00 03/16/17 00:39 Sodium Chloride 1,000 ml @ 30 mls/hr Q24H IV 03/15/17 12:30 Family History Mother with history of stomach cancer Substance Use Tobacco: Alcohol: Prescription med abuse: Illicits: Psychosocial History The patient was originally from [place] but has moved to [place] as a child and lived here since then. She resided in one room in a "rooming house," and she was not employed. She has been on disability for about 5 years. She reportedly has an eighth grade education. She was never , and had one child, a 44-year-old son who is currently incarcerated. . Spiritual/Cultural Factors The patient's sister's report that the patient has not been spiritual or hindu, but they do believe she would appreciate a visit from the chaplains now. . Living Will: Never completed Health Care Surrogate: Never completed Durable Power of Liner Roll Changer: Never completed Family/friends goals: I initially met with the patient's 2 sisters and her cousin, and they feel that they would want to transition to comfort care and not resuscitate the patient. I then spoke with the patient's son from the [facility], and he definitely will wants to focus on comfort, saying "she has suffered enough, we need to let her go." He wants the patient to be DNR, and to not have any more transfusions or any other escalation of care that would "just make her hand on and suffer longer." I then called the patient's sister Nanette and let her know of the patient's son' s decision, and she said that she understood and agreed. . . Ethical and Legal Issues There are no ethical issues that would impact her care or decision-making at this time. The patient lacks capacity for decision-making, and it is apparent that she will not regain that capacity, so the patient's son Lawrence Dillard is the patient's decision maker, and he is reachable at the [facility] ([phone], extension [phone] is Lawrence's employment case manager, and extension [phone] is the material handler 2nd shift for after hours). . Physical Exam Vital Signs Date Time Temp Pulse Resp B/P (MAP) Pulse Ox O2 Delivery O2 Flow Rate FiO2 03/15/17 12:20 100 50 03/15/17 12:19 100 100 03/15/17 08:23 100 50 03/15/17 07:45 84 86/53 03/15/17 05:57 94.0 75 19 79/51 100 03/15/17 05:54 75 79/51 03/15/17 05:20 100 60 03/15/17 05:00 72 91/59 03/15/17 04:30 60 03/15/17 04:27 92.0 71 19 97/57 100 03/15/17 04:00 93.0 70 18 104/60 (75) 100 03/15/17 04:00 60 03/15/17 03:38 68 88/55 03/15/17 03:30 100 60 03/15/17 03:10 90.5 66 12 83/50 100 03/15/17 02:14 66 15 82/53 100 03/15/17 01:22 69 74/46 03/15/17 01:20 70 74/46 03/15/17 00:00 96.5 77 19 91/50 (64) 100 03/14/17 23:44 79 88/54 03/14/17 21:09 98.7 88 18 125/60 100 03/14/17 20:35 98.5 86 30 111/56 99 03/14/17 20:32 98.5 86 27 111/56 100 03/14/17 20:00 98.5 85 24 111/55 (73) 98 03/14/17 19:37 97.8 83 30 146/67 99 03/14/17 19:01 97.9 74 21 64/40 99 03/14/17 18:00 97.9 81 21 83/50 (61) 97 03/15/17 03/16/17 19:00 07:00 Intake Total 5552 ml Output Total 6500 ml Balance -948 ml Intake IV Total 450 ml Albumin 500 ml Packed Cells 2400 ml FFP 1574 ml Platelets 283 ml Cryoprecipitate 235 ml Blood Product IV Normal Saline Flush 110 ml Drainage Total 6500 ml Exam CONSTITUTIONAL/GENERAL: This is a weak, jaundiced patient, intubated in the [facility] [place] , in no apparent distress. TUBES/LINES/DRAINS: ET tube, central lines, Mondragon SKIN: No lesions. Ecchymoses on upper extremities. No wounds seen anteriorly. Skin temperature appropriate. Not diaphoretic. HEAD: Atraumatic. Normocephalic. EYES: Pupils equal and round and reactive. Moderate scleral icterus. No injection or drainage. Fundi not examined. ENT: Nose without bleeding or purulent drainage. Some blood from the ET tube NECK: Trachea midline. Supple, nontender. No palpable thyroid enlargement or nodularity. CARDIOVASCULAR: Regular rate and rhythm without murmurs, gallops, or rubs. No JVD. Peripheral pulses not palpable RESPIRATORY/CHEST: Symmetric, mechanically ventilated respirations. Scattered rhonchi GASTROINTESTINAL: Abdomen soft, non-tender, nondistended. No hepato-splenomegaly , or palpable masses. No guarding. Bowel sounds present. GENITOURINARY: Without palpable bladder distension. Mondragon catheter in place. MUSCULOSKELETAL: Extremities without clubbing, cyanosis, or edema. No joint tenderness or effusion noted. No calf tenderness. No mottling or clubbing. LYMPHATICS: No palpable cervical or supraclavicular adenopathy. NEUROLOGICAL: Unresponsive to voice or touch or pain PSYCHIATRIC: Unable to evaluate due to her clinical condition . Diagnostic Tests Laboratory Laboratory Tests Test 03/13/17 14:05 03/13/17 14:10 03/13/17 14:19 03/13/17 15:15 Blood Gas Puncture Site RT BRACHIAL Blood Gas Patient Temperature 98.6 Blood Gas HCO3 21 mmol/L (22-26) Blood Gas Base Excess -1.9 mmol/L (-2-2) Blood Gas Oxygen Saturation 96 % (90-100) Arterial Blood pH 7.50 (7.380-7.420) Arterial Blood Partial Pressure CO2 27 mmHg (38-42) Arterial Blood Partial Pressure O2 101 mmHG (61-120) Arterial Blood Oxygen Content 12.1 Vol % (12.0-20.0) Arterial Blood Carboxyhemoglobin 2.3 % (0-4) Arterial Blood Methemoglobin 0.1 % (0-2) Blood Gas Hemoglobin 8.8 G/DL (12.0-16.0) Oxygen Delivery Device RA White Blood Count 3.9 TH/MM3 (4.0-11.0) Red Blood Count 2.35 MIL/MM3 (4.00-5.30) Hemoglobin 9.8 GM/DL (11.6-15.3) Hematocrit 28.2 % (35.0-46.0) Mean Corpuscular Volume 119.9 FL (80.0-100.0) Mean Corpuscular Hemoglobin 41.6 PG (27.0-34.0) Mean Corpuscular Hemoglobin Concent 34.7 % (32.0-36.0) Red Cell Distribution Width 24.6 % (11.6-17.2) Platelet Count 55 TH/MM3 (150-450) Mean Platelet Volume 7.3 FL (7.0-11.0) Neutrophils (%) (Auto) 64.8 % (16.0-70.0) Lymphocytes (%) (Auto) 17.3 % (9.0-44.0) Monocytes (%) (Auto) 17.4 % (0.0-8.0) Eosinophils (%) (Auto) 0.2 % (0.0-4.0) Basophils (%) (Auto) 0.3 % (0.0-2.0) Neutrophils # (Auto) 2.6 TH/MM3 (1.8-7.7) Lymphocytes # (Auto) 0.7 TH/MM3 (1.0-4.8) Monocytes # (Auto) 0.7 TH/MM3 (0-0.9) Eosinophils # (Auto) 0.0 TH/MM3 (0-0.4) Basophils # (Auto) 0.0 TH/MM3 (0-0.2) CBC Comment DIFF FINAL Differential Comment Prothrombin Time 33.5 SEC (9.8-11.6) Prothromb Time International Ratio 2.9 RATIO Blood Urea Nitrogen 10 MG/DL (7-18) Creatinine 1.15 MG/DL (0.50-1.00) Random Glucose 69 MG/DL (74-106) Total Protein 8.3 GM/DL (6.4-8.2) Albumin 2.7 GM/DL (3.4-5.0) Calcium Level 10.5 MG/DL (8.5-10.1) Alkaline Phosphatase 124 U/L (45-117) Aspartate Amino Transf (AST/SGOT) 232 U/L (15-37) Alanine Aminotransferase (ALT/SGPT) 108 U/L (10-53) Total Bilirubin 16.0 MG/DL (0.2-1.0) Sodium Level 130 MEQ/L (136-145) Potassium Level 4.7 MEQ/L (3.5-5.1) Chloride Level 97 MEQ/L (98-107) Carbon Dioxide Level 22.4 MEQ/L (21.0-32.0) Anion Gap 11 MEQ/L (5-15) Estimat Glomerular Filtration Rate 59 ML/MIN (>89) Lactic Acid Level 4.5 mmol/L (0.4-2.0) Total Creatine Kinase 122 U/L (26-192) Troponin I 0.02 NG/ML (0.02-0.05) Salicylates Level LESS THAN 1.7 MG/DL Acetaminophen Level LESS THAN 2.0 MCG/ML Ethyl Alcohol Level LESS THAN 3 MG/DL (0-5) Urine Color DARK-YELLOW (YELLW/STRAW) Urine Turbidity CLEAR (CLEAR) Urine pH 6.5 (5.0-8.5) Urine Specific [place] 1.012 (1.002-1.035) Urine Protein NEG mg/dL (NEG-TRACE) Urine Glucose (UA) NEG mg/dL (NEG) Urine Ketones 10 mg/dL (NEG) Urine Occult Blood NEG (NEG) Urine Nitrite NEG (NEG) Urine Bilirubin MOD (NEG) Urine Urobilinogen 4.0 MG/DL (LESS THAN Urine Leukocyte Esterase TRACE (NEG) Urine RBC 1 /hpf (0-3) Urine WBC 2 /hpf (0-5) Urine Squamous Epithelial Cells <1 /hpf (0-5) Urine Hyaline Casts 1 /lpf (RARE) Microscopic Urinalysis Comment CATH-CULT NOT IND Urine Opiates Screen NEG (NEG) Urine Barbiturates Screen NEG (NEG) Urine Amphetamines Screen NEG (NEG) Urine Benzodiazepines Screen NEG (NEG) Urine Cocaine Screen NEG (NEG) Urine Cannabinoids Screen NEG (NEG) Ammonia 70 MCMOL/L (11-32) Test 03/13/17 16:48 03/13/17 17:40 03/14/17 07:47 03/14/17 13:05 Lactic Acid Level 3.3 mmol/L (0.4-2.0) 2.5 mmol/L (0.4-2.0) 4.3 mmol/L (0.4-2.0) Prothrombin Time 37.8 SEC (9.8-11.6) Prothromb Time International Ratio 3.2 RATIO White Blood Count 5.0 TH/MM3 (4.0-11.0) Red Blood Count 2.06 MIL/MM3 (4.00-5.30) Hemoglobin 9.0 GM/DL (11.6-15.3) Hematocrit 25.3 % (35.0-46.0) Mean Corpuscular Volume 122.8 FL (80.0-100.0) Mean Corpuscular Hemoglobin 43.8 PG (27.0-34.0) Mean Corpuscular Hemoglobin Concent 35.6 % (32.0-36.0) Red Cell Distribution Width 24.9 % (11.6-17.2) Platelet Count 44 TH/MM3 (150-450) Mean Platelet Volume 7.8 FL (7.0-11.0) CBC Comment AUTO DIFF Differential Total Cells Counted 100 Neutrophils % (Manual) 68 % (16-70) Band Neutrophils % 2 % (0-6) Lymphocytes % 15 % (9-44) Monocytes % 14 % (0-8) Basophils % 1 % (0-2) Neutrophils # (Manual) 3.5 TH/MM3 (1.8-7.7) Nucleated Red Blood Cells 1 /100 WBC (0-0) Differential Comment FINAL DIFF MANUAL Platelet Estimate LOW (NORMAL) Platelet Morphology Comment NORMAL (NORMAL) Polychromasia 2.4 % (0.0-1.9) Ovalocytes 1+ (NORMAL) Blood Urea Nitrogen 9 MG/DL (7-18) Creatinine 1.03 MG/DL (0.50-1.00) Random Glucose 70 MG/DL (74-106) Total Protein 7.4 GM/DL (6.4-8.2) Albumin 2.3 GM/DL (3.4-5.0) Calcium Level 10.1 MG/DL (8.5-10.1) Alkaline Phosphatase 108 U/L (45-117) Aspartate Amino Transf (AST/SGOT) 229 U/L (15-37) Alanine Aminotransferase (ALT/SGPT) 104 U/L (10-53) Total Bilirubin 14.3 MG/DL (0.2-1.0) Sodium Level 132 MEQ/L (136-145) Potassium Level 4.6 MEQ/L (3.5-5.1) Chloride Level 102 MEQ/L (98-107) Carbon Dioxide Level 20.5 MEQ/L (21.0-32.0) Anion Gap 10 MEQ/L (5-15) Estimat Glomerular Filtration Rate 67 ML/MIN (>89) Ammonia 54 MCMOL/L (11-32) Test 03/14/17 16:30 03/14/17 18:00 03/14/17 18:38 03/14/17 22:58 Anti-Nuclear Antibody Screen NEG (NEG) Nasal Screen MRSA (PCR) MRSA NOT DETECTED (NOT Prothrombin Time SEC (9.8-11.6) Prothromb Time International Ratio RATIO Peritoneal Fluid WBC 445 /MM3 (0-10) Peritoneal Fluid RBC 930541 /MM3 (0-0) Peritoneal Fluid Neutrophils 60 % Peritoneal Fluid Lymphocytes 22 % Peritoneal Fluid Monocytes 16 % Peritoneal Fluid Eosinophils 2 % Peritoneal Fluid Total Protein 2.4 GM/DL Peritoneal Fluid Albumin 0.8 G/DL Peritoneal Fluid LDH 129 U/L Peritoneal Fluid Glucose 102 MG/DL Test 03/14/17 23:58 03/15/17 00:00 03/15/17 00:15 03/15/17 02:30 White Blood Count 6.7 TH/MM3 (4.0-11.0) Red Blood Count 0.68 MIL/MM3 (4.00-5.30) Hemoglobin 2.9 GM/DL (11.6-15.3) Hematocrit 8.9 % (35.0-46.0) Mean Corpuscular Volume 131.2 FL (80.0-100.0) Mean Corpuscular Hemoglobin 42.3 PG (27.0-34.0) Mean Corpuscular Hemoglobin Concent 32.2 % (32.0-36.0) Red Cell Distribution Width 27.2 % (11.6-17.2) Platelet Count 55 TH/MM3 (150-450) Mean Platelet Volume 7.5 FL (7.0-11.0) Prothrombin Time 30.8 SEC (9.8-11.6) Prothromb Time International Ratio 2.7 RATIO Activated Partial Thromboplast Time 103.2 SEC (24.3-30.1) Lactic Acid Level 10.5 mmol/L (0.4-2.0) 14.5 mmol/L (0.4-2.0) Test 03/15/17 04:05 03/15/17 08:17 03/15/17 08:20 03/15/17 09:11 Blood Gas Puncture Site ART LINE ART LINE Blood Gas Patient Temperature 98.6 98.6 Blood Gas HCO3 5 mmol/L (22-26) 6 mmol/L (22-26) Blood Gas Base Excess -23.6 mmol/L (-2-2) -22.0 mmol/L (-2-2) Blood Gas Oxygen Saturation 98 % (90-100) 97 % (90-100) Arterial Blood pH 7.05 (7.380-7.420) 7.09 (7.380-7.420) Arterial Blood Partial Pressure CO2 19 mmHg (38-42) 21 mmHg (38-42) Arterial Blood Partial Pressure O2 231 mmHg (61-120) 221 mmHg (61-120) Arterial Blood Oxygen Content 7.4 Vol % (12.0-20.0) 10.8 Vol % (12.0-20.0) Arterial Blood Carboxyhemoglobin 0.6 % (0-4) 0.6 % (0-4) Arterial Blood Methemoglobin 1.0 % (0-2) 1.3 % (0-2) Blood Gas Hemoglobin 4.9 G/DL (12.0-16.0) 7.5 G/DL (12.0-16.0) Oxygen Delivery Device VENTILATOR VENTILATOR Blood Gas Ventilator Setting AC16/450/5PEEP A/C 450/16/5PEEP Blood Gas Inspired Oxygen 60 % 50 % White Blood Count 5.5 TH/MM3 (4.0-11.0) 2.4 TH/MM3 (4.0-11.0) Red Blood Count 2.45 MIL/MM3 (4.00-5.30) 1.86 MIL/MM3 (4.00-5.30) Hemoglobin 7.4 GM/DL (11.6-15.3) 5.5 GM/DL (11.6-15.3) Hematocrit 21.9 % (35.0-46.0) 16.2 % (35.0-46.0) Mean Corpuscular Volume 89.3 FL (80.0-100.0) 87.2 FL (80.0-100.0) Mean Corpuscular Hemoglobin 30.1 PG (27.0-34.0) 29.3 PG (27.0-34.0) Mean Corpuscular Hemoglobin Concent 33.8 % (32.0-36.0) 33.7 % (32.0-36.0) Red Cell Distribution Width 15.9 % (11.6-17.2) 15.5 % (11.6-17.2) Platelet Count 17 TH/MM3 (150-450) 50 TH/MM3 (150-450) Mean Platelet Volume 7.1 FL (7.0-11.0) 7.6 FL (7.0-11.0) Neutrophils (%) (Auto) 71.2 % (16.0-70.0) Lymphocytes (%) (Auto) 16.2 % (9.0-44.0) Monocytes (%) (Auto) 12.2 % (0.0-8.0) Eosinophils (%) (Auto) 0.1 % (0.0-4.0) Basophils (%) (Auto) 0.3 % (0.0-2.0) Neutrophils # (Auto) 3.9 TH/MM3 (1.8-7.7) Lymphocytes # (Auto) 0.9 TH/MM3 (1.0-4.8) Monocytes # (Auto) 0.7 TH/MM3 (0-0.9) Eosinophils # (Auto) 0.0 TH/MM3 (0-0.4) Basophils # (Auto) 0.0 TH/MM3 (0-0.2) CBC Comment AUTO DIFF Differential Total Cells Counted 100 Neutrophils % (Manual) 59 % (16-70) Band Neutrophils % 16 % (0-6) Lymphocytes % 12 % (9-44) Monocytes % 8 % (0-8) Basophils % 2 % (0-2) Neutrophils # (Manual) 4.3 TH/MM3 (1.8-7.7) Metamyelocytes 1 % (0-1) Myelocytes 2 % (0-0) Nucleated Red Blood Cells 31 /100 WBC (0-0) Differential Comment FINAL DIFF MANUAL Toxic Granulation 1+ (NORMAL) Platelet Estimate LOW (NORMAL) Platelet Morphology Comment NORMAL (NORMAL) Spherocytes OCC (NORMAL) Crenated Cell 1+ (NORMAL) Prothrombin Time SEC (9.8-11.6) 13.6 SEC (9.8-11.6) Prothromb Time International Ratio RATIO 1.2 RATIO Activated Partial Thromboplast Time SEC (24.3-30.1) 82.5 SEC (24.3-30.1) Fibrinogen LESS THAN 50 mg/dL 181 mg/dL (227-377) Blood Urea Nitrogen 10 MG/DL (7-18) 10 MG/DL (7-18) Creatinine 2.33 MG/DL (0.50-1.00) 2.10 MG/DL (0.50-1.00) Random Glucose 232 MG/DL (74-106) 311 MG/DL (74-106) Total Protein 3.8 GM/DL (6.4-8.2) Albumin 2.6 GM/DL (3.4-5.0) Calcium Level 7.5 MG/DL (8.5-10.1) 11.0 MG/DL (8.5-10.1) Alkaline Phosphatase 31 U/L (45-117) Aspartate Amino Transf (AST/SGOT) 296 U/L (15-37) Alanine Aminotransferase (ALT/SGPT) 75 U/L (10-53) Lactate Dehydrogenase 323 U/L (84-246) Total Bilirubin 6.9 MG/DL (0.2-1.0) Sodium Level 131 MEQ/L (136-145) 136 MEQ/L (136-145) Potassium Level 5.6 MEQ/L (3.5-5.1) 4.9 MEQ/L (3.5-5.1) Chloride Level 101 MEQ/L (98-107) 96 MEQ/L (98-107) Carbon Dioxide Level 7.1 MEQ/L (21.0-32.0) 10.8 MEQ/L (21.0-32.0) Anion Gap 23 MEQ/L (5-15) 29 MEQ/L (5-15) Estimat Glomerular Filtration Rate 26 ML/MIN (>89) 29 ML/MIN (>89) Lactic Acid Level 14.2 mmol/L (0.4-2.0) Test 03/15/17 09:15 03/15/17 12:25 Blood Gas Puncture Site ART LINE ART LINE Blood Gas Patient Temperature 98.6 98.6 Blood Gas HCO3 11 mmol/L (22-26) 14 mmol/L (22-26) Blood Gas Base Excess -16.1 mmol/L (-2-2) -12.6 mmol/L (-2-2) Blood Gas Oxygen Saturation 92 % (90-100) 92 % (90-100) Arterial Blood pH 7.19 (7.380-7.420) 7.21 (7.380-7.420) Arterial Blood Partial Pressure CO2 29 mmHg (38-42) 36 mmHg (38-42) Arterial Blood Partial Pressure O2 72 mmHg (61-120) 66 mmHg (61-120) Arterial Blood Oxygen Content 7.4 Vol % (12.0-20.0) 8.9 Vol % (12.0-20.0) Arterial Blood Carboxyhemoglobin 0.9 % (0-4) 0.9 % (0-4) Arterial Blood Methemoglobin 1.6 % (0-2) 1.3 % (0-2) Blood Gas Hemoglobin 5.6 G/DL (12.0-16.0) 6.8 G/DL (12.0-16.0) Oxygen Delivery Device VENTILATOR VENTILATOR Blood Gas Ventilator Setting A/C 450/16/5PEEP 450/15/5PEEP Blood Gas Inspired Oxygen 50 % 50 % Result Diagram: 03/15/17 0911 03/15/17 0911 Microbiology Microbiology Date/Time Source Procedure Growth Status 03/13/17 14:10 Blood Peripheral Aerobic Blood Culture - Preliminary NO GROWTH IN 2 DAYS Resulted 03/13/17 14:10 Blood Peripheral Anaerobic Blood Culture - Preliminary NO GROWTH IN 2 DAYS Resulted 03/13/17 14:10 Blood Peripheral Aerobic Blood Culture - Preliminary NO GROWTH IN 2 DAYS Resulted 03/13/17 14:10 Blood Peripheral Anaerobic Blood Culture - Preliminary NO GROWTH IN 2 DAYS Resulted 03/14/17 22:58 Fluid Peritoneal Fluid Gram Stain - Final Resulted 03/14/17 22:58 Fluid Peritoneal Fluid Body Fluid Culture Pending Resulted Imaging Last Impressions Embolization 03/15/17 0000 Signed Impressions: Service Date/Time: Wednesday, March 15, 2017 11:03 - CONCLUSION: 1. Status post arteriography of the contralateral right inferior epigastric artery, right inferior epigastric vein and SMA as above. 2. Severe vasospasm of the inferior epigastric artery. No active hemorrhage was identified in any of the 3 vessels. 3. Empiric embolization of the central right inferior epigastric artery with a series of 3 mm tornado coils and Gelfoam slurry. 4. Nonvisualization of the portal vein may represent some degree of portal hypertension and hepatofugal flow. 5. Also noted were multiple calcified gallstones in the right upper abdominal quadrant. Charlie Johnson MD Chest X-Ray 03/15/17 0000 Signed Impressions: Service Date/Time: Wednesday, March 15, 2017 08:18 - CONCLUSION: 1. Bibasilar patchy densities. 2. Tubes and lines as described above. Lawrence Hrud MD Abdomen/Pelvis CT 03/14/17 0000 Signed Impressions: Service Date/Time: Tuesday, March 14, 2017 23:26 - CONCLUSION: 1. Cirrhosis with severe ascites. 2. Cholelithiasis Braydon Hoover MD Abdomen Ultrasound 03/13/17 0000 Signed Impressions: Service Date/Time: Monday, March 13, 2017 19:04 - CONCLUSION: Large volume ascites. Noble Kidd MD Procedures Central line Art line Arteriogram and attempted embolization . Patient/Family Conference Present at Family Conference: Initial conference with patient's sister Pinky, her sister Nanette, her cousin/ nurse Marilee, and a friend; subsequent telephone conference with the patient 's son Lawrence who is in the branch [employer]. . Family Conference Time (mins): 65 Family Conference Location: Consult Room, Telephone Issues Discussed: * Palliative care role, purpose, approach * Additional medical, psychosocial, and spiritual history * Patients general health, functional status, and cognitive changes in the months leading up to the current hospitalization * Patient/family understanding of the current medical problems * Patient/family understanding of prognosis * Patients goals of care as best understood from advance directives and/or conversations and/or values * Current medical treatment options and benefits/burdens of those options * Likely scenarios comparing ongoing aggressive care with a transition to comfort measures only * Questions answered to the best of my ability * Palliative care contact information provided All of the family agreed to initiate a DNR, and the patient's son requested that we stop "doing things that just prolong her suffering, and let her go." . Assessment and Plan Disease Oriented Problem List: (1) hemorrhage/DIC (2) end-stage liver disease, cirrhosis (3) alcoholism (4) anemia (5) history of hepatitis C (6) encephalopathy Symptom Scale: (1) dyspnea 0-10 Scale: Unable to quantify (2) encephalopathy 0-10 Scale: Unable to quantify Pertinent Non-Medical Issues Psychosocial: Unmarried, 1 adult son, on disability. Spiritual: Although the patient has not been particularly spiritual or hindu, the family does want zinc plating machine operator to come visit. Legal: The patient's son Lawrence Dillard is the patient's decision maker, and he is reachable at the [facility] ([phone], extension [phone] is Lawrence's employment case manager, and extension [phone] is the material handler 2nd shift for after hours). Ethical issues impacting care: None . Important Contacts The patient's son Lawrence Dillard is the patient's decision maker, and he is reachable at the [facility] ([phone], extension [phone] is Lawrence's employment case manager, and extension [phone] is the material handler 2nd shift for after hours). Sister: Nanette Herrera [phone] Sister: Pinky Dillard [phone] Cousin/nurse Marilee Massey . Prognosis This patient is terminal and imminent . Code Status: No Code Plan * DO NOT RESUSCITATE * Do not escalate care or provide any more transfusions/blood products; do not restart pressors; focus on comfort measures * DECISION-MAKING: The patient's son Lawrence Dillard is the patient's decision maker, and he is reachable at the [facility] ([phone], extension [phone] is Lawrence's employment case manager, and extension [phone] is the material handler 2nd shift for after hours). * GOALS: I initially met with the patient's 2 sisters and her cousin, and they feel that they would want to transition to comfort care and not resuscitate the patient. I then spoke with the patient's son from the [facility], and he definitely will wants to focus on comfort, saying "she has suffered enough, we need to let her go." He wants the patient to be DNR, and to not have any more transfusions or any other escalation of care that would "just make her hang on and suffer longer." I then called the patient's sister Nanette and let her know of the patient's son's decision, and she said that she understood and agreed. * SYMPTOMS: The patient is not exhibiting signs of pain or dyspnea, and she is profoundly encephalopathic at this time. PRN morphine has been added to the orders. * Ict Analyst consulted. * Palliative Care will continue to follow during this hospitalization. . Time Spent Total Floor Time (mins): 88 Face to Face Time (mins): 22 >50% Counseling/Coord of Care: Yes (d/w RN and w Dr. Reyna) Thank you for the opportunity to participate in the care of Ms. Dillard. Attestation To help prompt me to consider important information that might be impacting today's encounter and assessment, information from prior notes written by myself or my colleagues may have been "brought forward" into today's note. My signature on this note, however, is an attestation that I personally performed the exam, history, and/or decision-making noted today, and, unless otherwise indicated, the interactions with patient, family, and staff as well as the review of records all occurred today. I also attest that the listed assessment and stated plan reflect my best clinical judgment today based on the combination of historical information, prior notes, and today's exam/ interactions. When time spent is documented, it refers only to time spent today by the signer, or if indicated, combined time spent today by collaborating physician/nurse practitioner. Beatris Mccall MD Mar 15, 2017 13:31
[2017-03-15 13:54] LABS: MEAN CELL VOLUME 89.2 FL (80.0-100.0); MEAN CORPUSCULAR HEMOGLOBIN 29.5 PG (27.0-34.0); MEAN CORPUSCULAR HGB CONC 33.1 % (32.0-36.0); MEAN PLATELET VOLUME 7.8 FL (7.0-11.0); RED BLOOD COUNT 2.34 MIL/MM3 (4.00-5.30); WHITE BLOOD COUNT 1.4 TH/MM3 (4.0-11.0)
[2017-03-15 14:00] LABS: HEMOGLOBIN 6.9 GM/DL (11.6-15.3)
[2017-03-15 14:01] LABS: HEMATOCRIT 20.8 % (35.0-46.0); PLATELET COUNT 15 TH/MM3 (150-450)
--- NOTE | 2017-03-15 14:02 | RADRPT ---
EXAM DATE/TIME: 03/15/2017 11:03 [place] COMPARISON: CHEST SINGLE AP, January 25, 2016, 16:33. INDICATIONS : Patient with a history of hemorrhage needs angiogram, MEDICAL HISTORY : HTN End-stage liver disease Hepatitis C CVA Esophageal stricture SURGICAL HISTORY : Multiple paracentesis EGD with esophageal dilatation ENCOUNTER: Initial ACUITY: 1 day PAIN SCORE: Nonresponsive. FLUORO TIME: 20.4 minutes IMAGE SERIES: 17 ACCESS SITE: Left Femoral artery and Left femoral artery CONTRAST: 1.) 100 cc Visipaque (iodixanol) 1.) DEVICE(S): 1.) Right Inferior Epigastric Artery embolic coil(s) 3mmx2 2.) Right Inferior Epigastric Artery embolic coil(s) 3mmx2 3.) Right Inferior Epigastric Artery embolic coil(s) 3mmx2 4.) Right Inferior Epigastric Artery Gelfoam PROCEDURE : 1. Ultrasound-guided puncture of the access site. 2. Conscious sedation with continuous EKG and Oximetry monitoring. 3. Angiography of the right inferior epigastric artery 4. Angiography of the right inferior epigastric vein 5. Angiography of the SMA/portal The risks, benefits and alternatives to the procedure were explained and verbal and written consent w as obtained. The site was prepped in sterile fashion. Full sterile technique was used, including ca p, mask, sterile gloves and gown and a large sterile sheet. Hand hygiene and 2% chlorhexidine and/or betadine/alcohol prep was utilized per protocol for cutaneous antisepsis. Sterile gel and sterile p robe cover were utilized for ultrasound guidance. The skin and subcutaneous tissues were infiltrated with local anesthetic solution. With ultrasound and fluoroscopic guidance the selected artery was punctured and a vascular sheath was placed. A 4 [place] sheath was placed in both the left common femoral vein and common femoral artery. Through the arterial sheath, an Omni flush catheter was used to select the contralateral iliac system . Guidewire and catheter were manipulated down into the common femoral and used to select the inferio r epigastric. Contrast injection confirmed position in the inferior epigastric artery and demonstrate d extensive vasospasm of the epigastric arcade characteristic of the reported significant volume loss . As the 4 [place] catheter was nearly occlusive, the catheter was exchanged for an 038 glide hockey-s tick to facilitate placement of a high flow renegade microcatheter. Contrast injection again demonstr ated diffuse vasospasm of the arcade with no obvious bleeding. Empiric embolization was performed lacey trally with a series of 3, 3 mm tornado coils and Gelfoam slurry to cessation of antegrade flow. A similar technique was used to select the inferior epigastric vein through the left groin sheath. Ag ain, the high flow renegade catheter and microwire were manipulated far distally into the inferior ep igastric to evaluate for possible venous hemorrhage. Multiple projections were obtained but no active hemorrhage was identified. Again through the arterial sheath, a hook catheter was used to select the origin of the SMA. Position was confirmed with positive contrast. Power injection of the SMA showed normal arborization of the S MA arcade with no active bleed. Late phase images show opacification of the branch vessels of the SMV but the portal vein was not definitively identified possibly representing some degree of portal hype rtension. Due to severe coagulopathy, both sheaths were left in place and connected to the side-port drips. Conscious sedation was performed with the prescribed dosages and duration as above in the presence of an independent trained radiology nurse to assist in the monitoring of the patient. EKG and oximetry remained stable throughout the procedure. CONCLUSION: 1. Status post arteriography of the contralateral right inferior epigastric artery, right inferior ep igastric vein and SMA as above. 2. Severe vasospasm of the inferior epigastric artery. No active hemorrhage was identified in any of the 3 vessels. 3. Empiric embolization of the central right inferior epigastric artery with a series of 3 mm tornado coils and Gelfoam slurry. 4. Nonvisualization of the portal vein may represent some degree of portal hypertension and hepatofug al flow. 5. Also noted were multiple calcified gallstones in the right upper abdominal quadrant. Charlie Johnson MD on March 15, 2017 at 13:46 Board Certified Radiologist. This report was verified electronically.
[2017-03-15 14:10] LABS: INTERNATIONAL NORMALIZED RATIO 1.1 RATIO; PROTHROMBIN TIME - PATIENT 12.7 SEC (9.8-11.6)
[2017-03-15 14:28] LABS: BICARBONATE 14.2 MEQ/L (21.0-32.0); CALCIUM 11.7 MG/DL (8.5-10.1); CREATININE 1.99 MG/DL (0.50-1.00)
[2017-03-15 15:00] LABS: CALCIUM-PROTEIN CORRECTED 14.6 MG/DL (8.5-10.1)
[2017-03-15] MEDS ORDERED: MORPHINE SULFATE 4 MG/ML INJ IV PUSH PRN (15:00)
[2017-03-15] MEDS ORDERED: MORPHINE SULFATE 2 MG/ML INJ IV PUSH PRN (15:00)
[2017-03-15 15:29] LABS: HEPATITIS B SURFACE ANTIGEN POSITIVE (NEGATIVE); HEPATITIS C AB IgG REACTIVE (NEGATIVE)
[2017-03-15 15:43] LABS: HEPATITIS A AB IGM NEGATIVE (NEGATIVE)
[2017-03-15] MEDS ORDERED: fentaNYL 2,500 MCG/NS 250 ML IV PRN (15:45)
--- NOTE | 2017-03-15 19:03 | HHI.CCPN ---
Subjective Remarks/Hospital Course Hospital Course: 56-year-old female with a history of liver cirrhosis due to hepatitis C, history of CVA with left sided residual weakness, and esophageal stricture presented to the ED with complaints of abdominal pain, ascites, transaminitis S/ P US guided Paracentesis 8L removed by Dr. Elena IR on 03/09. GI evaluated the patient for possible catheter placement, was seen by Dr Byrnes who recommended paracentesis q2 weeks, and the patient was deemed not a transplant candidate. Patient has received Vit K 5mg and INR today is 2.9, she also received albumin 25g due to hypotension. Up to date cultures from paracentesis were found to be negative, Na improved to 130. BP improved. She was also transfused 1 U PRBC and was discharged on home medications Xifaxan and spirolactone, lasix, protonix and lactulose. She has returned to emergency department because her friend [facility] noticed that she was altered, yelled at RN at a penitentiary complaining of abdominal pain. She was readmitted due to altered mental status, initially to hospitalist service, however due to worsening altered mental status and hypotension she was transferred to ICU under critical care service. After transfusion of FFP's and platelets I have placed a paracentesis catheter with attempt to remove the fluid. There is a large amount of ascitic fluid seen on the ultrasound at the bedside however fluid drained from abdominal cavity is brown/red appearing like an old blood. The drainage was stopped after removal of 200 MLS of hemorrhagic ascitic fluid due to patient's intolerance and hypotension. She was taken emergently to CAT scan which shows only end-stage liver disease with large ascitic fluid. Subjective: 03/15: Seen and evaluated around 06:45am. patient overnight became hypotensive. paracentesis was bloodly. stat CT abd/pelvis did not show active extravasation from around the catheter itself. patient was unstable on rising vasopressor doses when I arrived. placed arterial line and cordis introducer sheath for emergent massive transfusion for hemorrhagic shock. once blood pressure improved , I drained ~9L bloody ascites from abdomen because peak pressures on ventilator were rising and it appeared that we had early compartment syndrome from active bleeding in the abdomen. again became unstable requiring additional massive transfusion. balanced resuscitation continued. re-draw labs demonstrated severe DIC and coagulopathy from active hemorrhage. patient bleeding from oral mucosa and iv sites. Factor VII and K-centra ordered. I called IR and they agreed to empirically embolize inferior epigastric and evaluate. no additional source of active extravasation could be found. taken back to ICU. again ongoing bleeding, despite multiple blood volumes of transfusion, patient's hgb never got above 6.6. Palliative care consulted and patient transitioned to comfort measures. I participated in the active management of the patient throughout the day guiding massive transfusion and reversal of coagulopathy and management of shock until she . Objective Vital Signs Date Time Temp Pulse Resp B/P (MAP) Pulse Ox O2 Delivery O2 Flow Rate FiO2 03/15/17 16:36 100 50 03/15/17 16:00 80 18 03/15/17 13:36 64/42 03/15/17 12:00 95.0 03/13/17 17:45 Room Air Intake and Output 03/15/17 03/15/17 03/16/17 08:00 16:00 00:00 Intake Total 5587 ml 5962 ml Output Total 25 ml 6500 ml Balance 5562 ml -538 ml Result Diagram: 03/15/17 1230 03/15/17 1230 Other Results Laboratory Tests Test 03/15/17 04:05 03/15/17 08:20 03/15/17 09:15 03/15/17 12:25 Blood Gas Puncture Site ART LINE ART LINE ART LINE ART LINE Blood Gas Patient Temperature 98.6 98.6 98.6 98.6 Blood Gas HCO3 5 mmol/L (22-26) 6 mmol/L (22-26) 11 mmol/L (22-26) 14 mmol/L (22-26) Blood Gas Base Excess -23.6 mmol/L (-2-2) -22.0 mmol/L (-2-2) -16.1 mmol/L (-2-2) -12.6 mmol/L (-2-2) Blood Gas Oxygen Saturation 98 % (90-100) 97 % (90-100) 92 % (90-100) 92 % ( 90-100) Arterial Blood pH 7.05 (7.380-7.420) 7.09 (7.380-7.420) 7.19 (7.380-7.420) 7.21 (7.380-7.420) Arterial Blood Partial Pressure CO2 19 mmHg (38-42) 21 mmHg (38-42) 29 mmHg (38-42) 36 mmHg (38-42) Arterial Blood Partial Pressure O2 231 mmHg (61-120) 221 mmHg (61-120) 72 mmHg (61-120) 66 mmHg (61-120) Arterial Blood Oxygen Content 7.4 Vol % (12.0-20.0) 10.8 Vol % (12.0-20.0) 7.4 Vol % (12.0-20.0) 8.9 Vol % (12.0-20.0) Arterial Blood Carboxyhemoglobin 0.6 % (0-4) 0.6 % (0-4) 0.9 % (0-4) 0.9 % (0-4) Arterial Blood Methemoglobin 1.0 % (0-2) 1.3 % (0-2) 1.6 % (0-2) 1.3 % (0-2) Blood Gas Hemoglobin 4.9 G/DL (12.0-16.0) 7.5 G/DL (12.0-16.0) 5.6 G/DL (12.0-16.0) 6.8 G/DL (12.0-16.0) Oxygen Delivery Device VENTILATOR VENTILATOR VENTILATOR VENTILATOR Blood Gas Ventilator Setting AC16/450/5PEEP A/C 450/16/5PEEP A/C 450/16/5PEEP 450/15/5PEEP Blood Gas Inspired Oxygen 60 % 50 % 50 % 50 % Objective Remarks GENERAL: Cachectic sick, icteric, lethargic female, intubated, sedated. SKIN: Warm and dry. HEAD: Normocephalic. EYES: Severe scleral icterus. NECK: Supple, trachea midline. No JVD or lymphadenopathy. CARDIOVASCULAR: Regular rate and rhythm without murmurs, gallops, or rubs. RESPIRATORY: Breath sounds equal bilaterally. No accessory muscle use. GASTROINTESTINAL: Abdomen is distended with a large amount of ascites. MUSCULOSKELETAL: No cyanosis NEURO EXAM: RASS -3. w/d to pain. does not follow commands. A/P Assessment and Plan Assessment: 56yF with what appears to be spontaneous intra-abdominal hemorrhage , likely from variceal bleeding or severe coagulopathy complicated by refractory hemorrhagic shock and severe coagulopathy/DIC secondary to massive hemorrhage and consumption. Terminal process. Will not survive. Active Problems: Hemorrhagic Shock Spontaneous Intra-abdominal hemorrhage Severe Coagulopathy secondary to consumption and massive bleeding Lactic Acidosis Anemia secondary to acute blood loss Hepatic Encephalopathy Thrombocytopenia secondary to massive bleeding Disseminated Intravascular Coagulation Plan: - massive transfusion - IR guided embolization if possible - palliative care. - vasopressors and blood. - calcium as needed - trend lactates - see above discussion for narrative of hospital course. This patient remains critically ill with one or more organ systems which are or may become a threat to life. I have spent in excess of 146 minutes discontinuously in the care and management of this patient. This time includes time from my initial evaluation early this morning through multiple rounds of massive transfusion were I actively guided therapy, discussions with consultants including interventional radiology, management of severe coagulopathy, family discussions, discussions with palliative care. All this time represents time I spent at bedside managing the patient throughout the day while her goals were aggressive, before the decision to transition to comfort measures. This time is exclusive of procedures, and includes, but is not limited to, evaluation of the patient, review of the medical record, discussions with family, consultants, nursing staff, or respiratory therapy, and documentation in the medical record. Rufino Reyna MD Mar 15, 2017 19:03
--- NOTE | 2017-03-15 19:04 | PD.PROCEDR ---
Procedure Note Procedure Procedure: Arterial Line Placement Right axillary arterial line Diagnosis: Hemorrhagic Shock Indications: Need for beat to beat hemodynamic monitoring Consent: Emergent Description of the Procedure: The right axilla was prepped and draped sterilely. 1% lidocaine was used for local anesthesia. Under direct ultrasound guidance, the axillary artery was located and a needle was advanced into the artery. The vascular anatomy of the right axilla was normal. A 20 gauge, 12 cm catheter was advanced into the artery using a modified Seldinger technique. The catheter was sutured to the skin and a sterile dressing was applied. The catheter was connected to a pressure transducer and an arterial waveform was noted. There were no immediate complications noted. There was minimal EBL. I personally performed the procedure. Rufino Reyna MD Mar 15, 2017 19:04
--- NOTE | 2017-03-15 19:05 | PD.PROCEDR ---
Procedure Note Procedure Central Line Procedure Note Left subclavian 8.5 [place] 10 cm Cordis introducer sheath Diagnosis: Hemorrhagic shock Indications: And need for massive transfusion protocol and rapid blood transfusion Consent: Emergent Anesthesia: none Description of the Procedure: The patient was placed in the supine, mild- Trendelenburg position. The area was prepped and draped sterilely. A 19g needle was inserted under negative pressure aspiration and dark venous blood was obtained. A guidewire was inserted easily without resistance. A small incision was made using a #11 blade. Using a modified Seldinger technique, the dilator and 8.5 [place], 10 cm catheter were advanced over the guidewire without resistance. All ports were aspirated and flushed, and had brisk blood return. The line was secured at the skin using 2-0 silk interrupted sutures. A Biopatch and Transparent sterile dressing were applied. There were no immediate complications noted. There was minimal EBL. The patient tolerated the procedure well. Ultrasound guidance was not used for this procedure A Chest x-ray has been ordered. I personally performed the procedure. Rufino Reyna MD Mar 15, 2017 19:05
--- NOTE | 2017-03-15 19:05 | DEATH SUM ---
Pronouncement Date Pronounced : Mar 15, 2017 Time Of : 1708 Pronouncement Called to pronounce of patient. Identified patient as Lesli Dillard with wrist band MR# [id number]. Patient with no cardiac activity in 2 separate leads and no palpable/auscible cardiac activity. Patient with no spontaneous respirations, no corneal reflex or response to painful stimuli. Pupils fixed and dilated. Preliminary Cause of : Cardiac arrest Rufino Reyna MD Mar 15, 2017 19:05
--- NOTE | 2017-03-15 19:05 | DEATH SUM ---
Pronouncement Date Pronounced : Mar 15, 2017 Time Of : 1708 Pronouncement Called to pronounce of patient. Identified patient as Lesli Dillard with wrist band MR# [id number]. Patient with no cardiac activity in 2 separate leads and no palpable/auscible cardiac activity. Patient with no spontaneous respirations, no corneal reflex or response to painful stimuli. Pupils fixed and dilated. Preliminary Cause of : Cardiac arrest Rufino Reyna MD Mar 15, 2017 19:05
--- NOTE | 2017-03-15 19:05 | DEATH SUM ---
Pronouncement Date Pronounced : Mar 15, 2017 Time Of : 1708 Pronouncement Called to pronounce of patient. Identified patient as Lesli Dillard with wrist band MR# [id number]. Patient with no cardiac activity in 2 separate leads and no palpable/auscible cardiac activity. Patient with no spontaneous respirations, no corneal reflex or response to painful stimuli. Pupils fixed and dilated. Preliminary Cause of : Cardiac arrest Rufino Reyna MD Mar 15, 2017 19:05
--- NOTE | 2017-03-15 19:05 | PD.PROCEDR ---
Procedure Note Procedure Central Line Procedure Note Left subclavian 8.5 [place] 10 cm Cordis introducer sheath Diagnosis: Hemorrhagic shock Indications: And need for massive transfusion protocol and rapid blood transfusion Consent: Emergent Anesthesia: none Description of the Procedure: The patient was placed in the supine, mild- Trendelenburg position. The area was prepped and draped sterilely. A 19g needle was inserted under negative pressure aspiration and dark venous blood was obtained. A guidewire was inserted easily without resistance. A small incision was made using a #11 blade. Using a modified Seldinger technique, the dilator and 8.5 [place], 10 cm catheter were advanced over the guidewire without resistance. All ports were aspirated and flushed, and had brisk blood return. The line was secured at the skin using 2-0 silk interrupted sutures. A Biopatch and Transparent sterile dressing were applied. There were no immediate complications noted. There was minimal EBL. The patient tolerated the procedure well. Ultrasound guidance was not used for this procedure A Chest x-ray has been ordered. I personally performed the procedure. Rufino Reyna MD Mar 15, 2017 19:05
--- NOTE | 2017-03-15 19:07 | HHI.DS ---
Summary Note Date of : Mar 15, 2017 Time Of : 1708 Admission Date Mar 13, 2017 at 16:14 Admitting Diagnosis altered mental status, sepsis, hyperammonemia Diagnosis at Time of : (1) Hemorrhagic shock ICD Code: R57.8 - Other shock Diagnosis: Principal (2) Intra abdominal hemorrhage ICD Code: R58 - Hemorrhage, not elsewhere classified Diagnosis: Principal (3) Disseminated intra-vascular coagulation ICD Code: D65 - Disseminated intravascular coagulation [defibrination syndrome] Diagnosis: Principal (4) Consumptive coagulopathy ICD Code: D65 - Disseminated intravascular coagulation [defibrination syndrome] Diagnosis: Principal Procedures 03/15: IR guided embolization of inferior epigastric artery. Brief History Pt was recently discharged on 03/12/17. Hospital course prior to this admission was the following. 56 y/o female with a history of liver cirrhosis, hep c, cva-left sided residual , and esophageal stricture presented to the ED with complaints of abdominal pain , ascites, transaminitis S/P US guided Paracentesis 8L removed by Dr. Elena IR on 03/09. GI evaluated the patient for possible catheter placement, was seen by Dr Byrnes who recommended paracentesis q2 weeks, and pt was deemed not a transplant candidate. Pt received Vit K 5mg and INR today is 2.9, however FFP is not indicated for cirrhotic patient requiring paracentesis, pt received albumin 25g due to hypotension. cultures from paracentesis were found to be negative, Na improved to 130. BP improved. Pt was transfused 1 U PRBC. Pt was discharged on home medications Xifaxan and spirolactone, lasix, protonix and lactulose. Pt unfortunately was readmitted today because friend found pt altered, yelled at RN at nursing school and complaining of abdominal pain. Pt is a poor historian and at first only answers "yes" to all of my questions. Per ED physician and RN, pt was brought in for AMS. Pt finally was able to tell me that she has abdominal pain and is very tender w palpation. I wasn't able to get more history from her. CBC/BMP: 03/15/17 1230 03/15/17 1230 Significant Findings Laboratory Tests Test 03/13/17 14:05 03/13/17 14:10 03/13/17 14:19 11/4/17 15:15 Blood Gas HCO3 21 mmol/L (22-26) Arterial Blood pH 7.50 (7.380-7.420) Arterial Blood Partial Pressure CO2 27 mmHg (38-42) Blood Gas Hemoglobin 8.8 G/DL (12.0-16.0) White Blood Count 3.9 TH/MM3 (4.0-11.0) Red Blood Count 2.35 MIL/MM3 (4.00-5.30) Hemoglobin 9.8 GM/DL (11.6-15.3) Hematocrit 28.2 % (35.0-46.0) Mean Corpuscular Volume 119.9 FL (80.0-100.0) Mean Corpuscular Hemoglobin 41.6 PG (27.0-34.0) Red Cell Distribution Width 24.6 % (11.6-17.2) Platelet Count 55 TH/MM3 (150-450) Monocytes (%) (Auto) 17.4 % (0.0-8.0) Lymphocytes # (Auto) 0.7 TH/MM3 (1.0-4.8) Prothrombin Time 33.5 SEC (9.8-11.6) Creatinine 1.15 MG/DL (0.50-1.00) Random Glucose 69 MG/DL (74-106) Total Protein 8.3 GM/DL (6.4-8.2) Albumin 2.7 GM/DL (3.4-5.0) Calcium Level 10.5 MG/DL (8.5-10.1) Alkaline Phosphatase 124 U/L (45-117) Aspartate Amino Transf (AST/SGOT) 232 U/L (15-37) Alanine Aminotransferase (ALT/SGPT) 108 U/L (10-53) Total Bilirubin 16.0 MG/DL (0.2-1.0) Sodium Level 130 MEQ/L (136-145) Chloride Level 97 MEQ/L (98-107) Estimat Glomerular Filtration Rate 59 ML/MIN (>89) Lactic Acid Level 4.5 mmol/L (0.4-2.0) Salicylates Level LESS THAN 1.7 MG/DL Acetaminophen Level LESS THAN 2.0 MCG/ML Urine Color DARK-YELLOW (YELLW/STRAW) Urine Ketones 10 mg/dL (NEG) Urine Bilirubin MOD (NEG) Urine Urobilinogen 4.0 MG/DL (LESS THAN Urine Leukocyte Esterase TRACE (NEG) Ammonia 70 MCMOL/L (11-32) Test 03/13/17 16:48 03/13/17 17:40 03/14/17 07:47 03/14/17 13:05 Lactic Acid Level 3.3 mmol/L (0.4-2.0) 2.5 mmol/L (0.4-2.0) 4.3 mmol/L (0.4-2.0) Prothrombin Time 37.8 SEC (9.8-11.6) Red Blood Count 2.06 MIL/MM3 (4.00-5.30) Hemoglobin 9.0 GM/DL (11.6-15.3) Hematocrit 25.3 % (35.0-46.0) Mean Corpuscular Volume 122.8 FL (80.0-100.0) Mean Corpuscular Hemoglobin 43.8 PG (27.0-34.0) Red Cell Distribution Width 24.9 % (11.6-17.2) Platelet Count 44 TH/MM3 (150-450) Monocytes % 14 % (0-8) Nucleated Red Blood Cells 1 /100 WBC (0-0) Platelet Estimate LOW (NORMAL) Polychromasia 2.4 % (0.0-1.9) Ovalocytes 1+ (NORMAL) Creatinine 1.03 MG/DL (0.50-1.00) Random Glucose 70 MG/DL (74-106) Albumin 2.3 GM/DL (3.4-5.0) Aspartate Amino Transf (AST/SGOT) 229 U/L (15-37) Alanine Aminotransferase (ALT/SGPT) 104 U/L (10-53) Total Bilirubin 14.3 MG/DL (0.2-1.0) Sodium Level 132 MEQ/L (136-145) Carbon Dioxide Level 20.5 MEQ/L (21.0-32.0) Estimat Glomerular Filtration Rate 67 ML/MIN (>89) Ammonia 54 MCMOL/L (11-32) Test 03/14/17 16:30 03/14/17 18:00 03/14/17 18:38 03/14/17 22:58 Hepatitis B Surface Antigen POSITIVE (NEGATIVE) Hepatitis C Antibody REACTIVE (NEGATIVE) Peritoneal Fluid WBC 445 /MM3 (0-10) Peritoneal Fluid RBC 057598 /MM3 (0-0) Test 03/14/17 23:58 03/15/17 00:00 03/15/17 00:15 03/15/17 02:30 Red Blood Count 0.68 MIL/MM3 (4.00-5.30) Hemoglobin 2.9 GM/DL (11.6-15.3) Hematocrit 8.9 % (35.0-46.0) Mean Corpuscular Volume 131.2 FL (80.0-100.0) Mean Corpuscular Hemoglobin 42.3 PG (27.0-34.0) Red Cell Distribution Width 27.2 % (11.6-17.2) Platelet Count 55 TH/MM3 (150-450) Prothrombin Time 30.8 SEC (9.8-11.6) Activated Partial Thromboplast Time 103.2 SEC (24.3-30.1) Lactic Acid Level 10.5 mmol/L (0.4-2.0) 14.5 mmol/L (0.4-2.0) Test 03/15/17 04:05 03/15/17 08:17 03/15/17 08:20 03/15/17 09:11 Blood Gas HCO3 5 mmol/L (22-26) 6 mmol/L (22-26) Blood Gas Base Excess -23.6 mmol/L (-2-2) -22.0 mmol/L (-2-2) Arterial Blood pH 7.05 (7.380-7.420) 7.09 (7.380-7.420) Arterial Blood Partial Pressure CO2 19 mmHg (38-42) 21 mmHg (38-42) Arterial Blood Partial Pressure O2 231 mmHg (61-120) 221 mmHg (61-120) Arterial Blood Oxygen Content 7.4 Vol % (12.0-20.0) 10.8 Vol % (12.0-20.0) Blood Gas Hemoglobin 4.9 G/DL (12.0-16.0) 7.5 G/DL (12.0-16.0) Red Blood Count 2.45 MIL/MM3 (4.00-5.30) 1.86 MIL/MM3 (4.00-5.30) Hemoglobin 7.4 GM/DL (11.6-15.3) 5.5 GM/DL (11.6-15.3) Hematocrit 21.9 % (35.0-46.0) 16.2 % (35.0-46.0) Platelet Count 17 TH/MM3 (150-450) 50 TH/MM3 (150-450) Neutrophils (%) (Auto) 71.2 % (16.0-70.0) Monocytes (%) (Auto) 12.2 % (0.0-8.0) Lymphocytes # (Auto) 0.9 TH/MM3 (1.0-4.8) Band Neutrophils % 16 % (0-6) Myelocytes 2 % (0-0) Nucleated Red Blood Cells 31 /100 WBC (0-0) Toxic Granulation 1+ (NORMAL) Platelet Estimate LOW (NORMAL) Spherocytes OCC (NORMAL) Crenated Cell 1+ (NORMAL) Fibrinogen LESS THAN 50 mg/dL 181 mg/dL (227-377) Creatinine 2.33 MG/DL (0.50-1.00) 2.10 MG/DL (0.50-1.00) Random Glucose 232 MG/DL (74-106) 311 MG/DL (74-106) Total Protein 3.8 GM/DL (6.4-8.2) Albumin 2.6 GM/DL (3.4-5.0) Calcium Level 7.5 MG/DL (8.5-10.1) 11.0 MG/DL (8.5-10.1) Alkaline Phosphatase 31 U/L (45-117) Aspartate Amino Transf (AST/SGOT) 296 U/L (15-37) Alanine Aminotransferase (ALT/SGPT) 75 U/L (10-53) Lactate Dehydrogenase 323 U/L (84-246) Total Bilirubin 6.9 MG/DL (0.2-1.0) Sodium Level 131 MEQ/L (136-145) Potassium Level 5.6 MEQ/L (3.5-5.1) Carbon Dioxide Level 7.1 MEQ/L (21.0-32.0) 10.8 MEQ/L (21.0-32.0) Anion Gap 23 MEQ/L (5-15) 29 MEQ/L (5-15) Estimat Glomerular Filtration Rate 26 ML/MIN (>89) 29 ML/MIN (>89) Lactic Acid Level 14.2 mmol/L (0.4-2.0) White Blood Count 2.4 TH/MM3 (4.0-11.0) Prothrombin Time 13.6 SEC (9.8-11.6) Activated Partial Thromboplast Time 82.5 SEC (24.3-30.1) Chloride Level 96 MEQ/L (98-107) Test 03/15/17 09:15 03/15/17 12:25 03/15/17 12:30 Blood Gas HCO3 11 mmol/L (22-26) 14 mmol/L (22-26) Blood Gas Base Excess -16.1 mmol/L (-2-2) -12.6 mmol/L (-2-2) Arterial Blood pH 7.19 (7.380-7.420) 7.21 (7.380-7.420) Arterial Blood Partial Pressure CO2 29 mmHg (38-42) 36 mmHg (38-42) Arterial Blood Oxygen Content 7.4 Vol % (12.0-20.0) 8.9 Vol % (12.0-20.0) Blood Gas Hemoglobin 5.6 G/DL (12.0-16.0) 6.8 G/DL (12.0-16.0) White Blood Count 1.4 TH/MM3 (4.0-11.0) Red Blood Count 2.34 MIL/MM3 (4.00-5.30) Hemoglobin 6.9 GM/DL (11.6-15.3) Hematocrit 20.8 % (35.0-46.0) Platelet Count 15 TH/MM3 (150-450) Prothrombin Time 12.7 SEC (9.8-11.6) Activated Partial Thromboplast Time 117.9 SEC (24.3-30.1) Fibrinogen 101 mg/dL (227-377) Creatinine 1.99 MG/DL (0.50-1.00) Random Glucose 238 MG/DL (74-106) Total Protein 4.0 GM/DL (6.4-8.2) Calcium Level 11.7 MG/DL (8.5-10.1) Carbon Dioxide Level 14.2 MEQ/L (21.0-32.0) Anion Gap 26 MEQ/L (5-15) Estimat Glomerular Filtration Rate 31 ML/MIN (>89) Lactic Acid Level 14.5 mmol/L (0.4-2.0) Protein Corrected Calcium 14.6 MG/DL (8.5-10.1) Hospital Course 03/15: Seen and evaluated around 06:45am. patient overnight became hypotensive. paracentesis was bloodly. stat CT abd/pelvis did not show active extravasation from around the catheter itself. patient was unstable on rising vasopressor doses when I arrived. placed arterial line and cordis introducer sheath for emergent massive transfusion for hemorrhagic shock. once blood pressure improved , I drained ~9L bloody ascites from abdomen because peak pressures on ventilator were rising and it appeared that we had early compartment syndrome from active bleeding in the abdomen. again became unstable requiring additional massive transfusion. balanced resuscitation continued. re-draw labs demonstrated severe DIC and coagulopathy from active hemorrhage. patient bleeding from oral mucosa and iv sites. Factor VII and K-centra ordered. I called IR and they agreed to empirically embolize inferior epigastric and evaluate. no additional source of active extravasation could be found. taken back to ICU. again ongoing bleeding, despite multiple blood volumes of transfusion, patient's hgb never got above 6.6. Palliative care consulted and patient transitioned to comfort measures. I participated in the active management of the patient throughout the day guiding massive transfusion and reversal of coagulopathy and management of shock until she . Rufino Reyna MD Mar 15, 2017 19:07
[2017-03-16 12:40] LABS: AMYLASE BODY FLUID 45 U/L; AMYLASE BODY FLUID TYPE PERITONEAL
[2017-03-16] MEDS ORDERED: PHARMACY ORDERED LAB ONE (15:45)
== END 2017-03-15 17:08 | disposition expired | DRG 981 ==
LOC: NEPC 13:42 → NEDA 16:14 → N05A 17:53 → HIME 03-14 17:25
PROVIDERS: ADMIT Internal Medicine Critical Care Medicine; ATTEND Internal Medicine Critical Care Medicine
PROC: 30233N1 Transfusion of Nonautologous Red Blood Cells into Peripheral Vein, Percutaneous Approach (ICD-10-PCS; 2017-03-14)
PROC: 04V23DZ Restriction of Gastric Artery with Intraluminal Device, Percutaneous Approach (ICD-10-PCS; principal; 2017-03-15)
PROC: B51VYZZ Fluoroscopy of Other Veins using Other Contrast (ICD-10-PCS; 2017-03-15)
PROC: B414YZZ Fluoroscopy of Superior Mesenteric Artery using Other Contrast (ICD-10-PCS; 2017-03-15)
PROC: B41BYZZ Fluoroscopy of Other Intra-Abdominal Arteries using Other Contrast (ICD-10-PCS; 2017-03-15)
PROC: 03HY32Z Insertion of Monitoring Device into Upper Artery, Percutaneous Approach (ICD-10-PCS; 2017-03-15)
PROC: 02H633Z Insertion of Infusion Device into Right Atrium, Percutaneous Approach (ICD-10-PCS; 2017-03-15)
PROC: 0W9G3ZZ Drainage of Peritoneal Cavity, Percutaneous Approach (ICD-10-PCS; 2017-03-15)
PROC: 0BH17EZ Insertion of Endotracheal Airway into Trachea, Via Natural or Artificial Opening (ICD-10-PCS; 2017-03-15)
PROC: 5A1935Z Respiratory Ventilation, Less than 24 Consecutive Hours (ICD-10-PCS; 2017-03-15)
PROC: B543ZZA Ultrasonography of Right Jugular Veins, Guidance (ICD-10-PCS; 2017-03-15)
PROC: 02HV33Z Insertion of Infusion Device into Superior Vena Cava, Percutaneous Approach (ICD-10-PCS; 2017-03-15)
PROC: 30243K1 Transfusion of Nonautologous Frozen Plasma into Central Vein, Percutaneous Approach (ICD-10-PCS; 2017-03-15)
PROC: 30243N1 Transfusion of Nonautologous Red Blood Cells into Central Vein, Percutaneous Approach (ICD-10-PCS; 2017-03-15)
PROC: 30243R1 Transfusion of Nonautologous Platelets into Central Vein, Percutaneous Approach (ICD-10-PCS; 2017-03-15)
PROC: 30243M1 Transfusion of Nonautologous Plasma Cryoprecipitate into Central Vein, Percutaneous Approach (ICD-10-PCS; 2017-03-15)
DX: K70.31 Alcoholic cirrhosis of liver with ascites (principal); D65 Disseminated intravascular coagulation [defibrination syndrome]; R57.8 Other shock; E87.2 Acidosis; E87.1 Hypo-osmolality and hyponatremia; Z51.5 Encounter for palliative care; D62 Acute posthemorrhagic anemia; K76.6 Portal hypertension; I69.354 Hemiplegia and hemiparesis following cerebral infarction affecting left non-dominant side; M79.A3 Nontraumatic compartment syndrome of abdomen; K70.11 Alcoholic hepatitis with ascites; R58 Hemorrhage, not elsewhere classified; I10 Essential (primary) hypertension; F17.290 Nicotine dependence, other tobacco product, uncomplicated; M19.90 Unspecified osteoarthritis, unspecified site; E87.6 Hypokalemia; D53.9 Nutritional anemia, unspecified; B18.2 Chronic viral hepatitis C; K72.90 Hepatic failure, unspecified without coma; H40.9 Unspecified glaucoma; K80.20 Calculus of gallbladder without cholecystitis without obstruction; I73.89 Other specified peripheral vascular diseases; F10.20 Alcohol dependence, uncomplicated; Z66 Do not resuscitate; Z91.14 Patient's other noncompliance with medication regimen
CPT/HCPCS: 31500; 36430; 36556; 36600; 49082; 71010; 74177; 76705; 76937; 80048; 80053; 80074; 80307; 81001; 82042; 82140; 82150; 82550; 82805; 82945; 83605; 83615; 84155; 84157; 84484; 85007; 85025; 85027; 85384; 85610; 85730; 86038; 86255; 86850; 86900; 86901; 86920; 86922; 86927; 86965; 87040; 87070; 87205; 87641; 88305; 89051; 93005; 94002; 96365; 96368; 96375; C1769; C1887; C1894; C9113; C9132; J1170; J2250; J2270; J2543; J3010; J3370; J3475; J3480; J7030; J7050; J7070; J7189; P9016; P9017; P9035; P9045; P9047; Q9963; Q9967